=== PATIENT | female | born 1955 | race Caucasian/White ===

== ENCOUNTER → 2017-08-25 10:31 | Outpatient (CLI) | payer MEDICARE, SELFPAY ==
--- NOTE | 2017-08-25 10:36 | RAD_ITS ---
STUDY: X-RAY - RIGHT big toe. CLINICAL: Female, 62 years old. Great toe bruising and pain. TECHNIQUE: 3 view(s) of the right big toe. COMPARISON: None. FINDINGS: There is diffuse demineralization without acute fracture lucency or cortical step-off. The soft tissues appear unremarkable. RAD/Foot min 3 Views IMPRESSION: Diffuse demineralization. Advise correlation with DEXA. No evident acute osseous abnormality. Electronically Signed: Tc Morrissey MD at 11:06 EDT , Service support ,
--- NOTE | 2017-08-25 10:36 | RAD_ITS ---
STUDY: X-RAY - LEFT HUMERUS REASON FOR EXAM: Female, 62 years old. Fell one day ago with shoulder pain. TECHNIQUE: 3 view(s) of the humerus. COMPARISON: None. FINDINGS: There is subtle cortical step-off involving the proximal humeral shaft. There is no glenohumeral subluxation or dislocation. There is no demonstrated soft tissue abnormality. The left lung regions within the field of view appear unremarkable. RAD/Humerus min 2 Views IMPRESSION: Potential fracture of the proximal humeral shaft. Please refer to dedicated left shoulder series for further information. Electronically Signed: Tc Morrissey MD at 11:11 EDT , Service support ,
--- NOTE | 2017-08-25 10:36 | RAD_ITS ---
STUDY: X-RAY - LEFT SHOULDER REASON FOR EXAM: Female, 62 years old. Fell one day ago. Shoulder pain and immobility. TECHNIQUE: 4 view(s) of the shoulder. COMPARISON: None. FINDINGS: There is subtle cortical step-off and cortical angulation involving the proximal left humeral shaft. Fracture fragments appear well opposed. There is mild low riding shoulder. There is no glenohumeral dislocation. The acromioclavicular and coracoclavicular joint spaces appear normal/preserved. Normal visualized pulmonary apex. RAD/Shoulder min 2 Views IMPRESSION: Probable nondisplaced fracture of the proximal left humerus surgical neck. No glenohumeral subluxation or dislocation. Mild low riding humeral head probably represents hemarthrosis. Diffuse demineralization. Consider evaluation with DEXA. Electronically Signed: Tc Morrissey MD at 11:12 EDT , Service support ,
== END ==
PROVIDERS: Family Provider Internal Medicine; PCP Internal Medicine; Visit Provider Nurse Practitioner Gerontology
DX: S99.921A Unspecified injury of right foot, initial encounter (principal); M25.512 Pain in left shoulder; M79.602 Pain in left arm
CPT/HCPCS: 73030; 73060; 73630

== ENCOUNTER 2017-09-24 11:15 | Outpatient (RCR) | payer MEDICARE, SELFPAY ==
--- NOTE | 2017-09-24 12:17 | HP.PTEVAL_ITS ---
Patient's Visit Information GLADYS LAINEZ is a 62 year old F referred to Physical Therapy by Niraj Ghotra with a diagnosis of 2 part non displaced fx of surg neck and greater tuberosity. Date of Evaluation: 09/24/17 Physical Therapist: Pina Raphael - Visit Plan Frequency: 2-3x /Week Duration: 2 Months Plan: ===Pt seems to have some memory issues as she could not remember when she fell nor when her follow up appointment is. ===Called [facility] and they said Dr has PROM only in his notes until retun appt on October 16. 1X/ week for 4 weeks for PROM to gain more ROM and get pt ready for strengthening and AAROM when cleared to do so by MD with modalities for pain control PRN. Once cleared POC will prob change to 2X/ week for strengthening and AAROM/AROM with HEP...... - Subjective Subjective: Pt reports that she broke her shoulder because she fell at her Father in Laws house right before dinner. She went to go let dog in house and the carpet had been rolled up and went to step over it and caught her toe or something (toe has healed up fine) but when she landed she knew she had hurt herself bad. She ate dinner but did not want to take her to the ER so he gave her a valium and woke up the next morning and was in so much pain that she could not do anything. She ended up seeing OIL LABORATORY ANALYST the next morning and had an x -ray and was sent to ortho. Ortho said no surgery. She fell 3-4 weeks ago she thinks but can't remember. The pain is not near as bad a s it used to be and takes tramadol. She is in a sling and has to be in a sling for 3 more weeks. said to do nothing with her arm and keep in the sling. She is not sleeping cause she is on her back. She normally sleeps on her L side. ++Therapist called Dr arauzw and she fell 08-24-2017. Clinical desk said PROM only until she sees MD on the 16 of October - Pain L shoulder pain Pain Intensity (Out of 10): 0 - Objective Sits her in the clinic with a sling on the L shoulder. - Goals Goal 1:: I HEP Goal Time Frame: 4-6 Weeks Goal 2:: Gain L shoulder AROM to 120 degrees elevation to be able to complete functional ADLs and IR to L4 to help with dressing etc - Rehabilitation Potential Rehabilitation Potential: Good - Anticipated Interventions Patient/Client Instruction: Educate patient on: Condition, Plan of Care For the Purpose of:: To decrease pain, To decrease swelling/inflammation, To increase ROM, To improve nutrient delivery to tissue, To improve muscle performance and motor function, To improve ability to perform ADL's, To increase tolerance to activity/condition/position, To improve performance and independence with ADL's, To improve health of tissue, To increase flexibility/ ROM Therapeutic Exercise to Include: Strength training, Postural training, Passive ROM, Active ROM, Scapular Strength/Stabilization For the Purpose of:: To decrease pain, To decrease swelling/inflammation, To increase ROM, To improve nutrient delivery to tissue, To improve muscle performance and motor function, To improve ability to perform ADL's, To increase tolerance to activity/condition/position, To improve performance and independence with ADL's, To improve ability of physical actions for home/ community/work/leisure Manual Therapy Techniques to Include: Passive ROM For the Purpose of:: To increase ROM IF ES: Yes Cryotherapy (ice pack, ice massage): Yes Thermo therapy (hot pack): Yes Ultrasound (thermal/non thermal): Yes For the Purpose of:: To decrease pain, To decrease swelling/inflammation, To improve nutrient delivery to tissue Thank you for the opportunity to evaluate your patient. For Medicare and Medicare HMO plans, please review the plan of care and approve it. It will need to be FAXED BACK to us at [phone] for Medicare purposes. Please let me know if there are questions or concerns regarding this plan of care. Physician Signature: Date:
--- NOTE | 2017-09-24 12:23 | HP.PTEVAL ---
Patient's Visit Information GLADYS LAINEZ is a 62 year old F referred to Physical Therapy by Niraj Ghotra with a diagnosis of 2 part non displaced fx of surg neck and greater tuberosity. Date of Evaluation: 09/24/17 Physical Therapist: Pina Raphael - Visit Plan Frequency: 2-3x /Week Duration: 2 Months Plan: ===Pt seems to have some memory issues as she could not remember when she fell nor when her follow up appointment is. ===Called [facility] and they said Dr has PROM only in his notes until retun appt on October 16. 1X/ week for 4 weeks for PROM to gain more ROM and get pt ready for strengthening and AAROM when cleared to do so by MD with modalities for pain control PRN. Once cleared POC will prob change to 2X/ week for strengthening and AAROM/AROM with HEP...... - Subjective Subjective: Pt reports that she broke her shoulder because she fell at her Father in Laws house right before dinner. She went to go let dog in house and the carpet had been rolled up and went to step over it and caught her toe or something (toe has healed up fine) but when she landed she knew she had hurt herself bad. She ate dinner but did not want to take her to the ER so he gave her a valium and woke up the next morning and was in so much pain that she could not do anything. She ended up seeing SIGNALS INTELLIGENCE ANALYST the next morning and had an x-ray and was sent to ortho. Ortho said no surgery. She fell 3-4 weeks ago she thinks but can't remember. The pain is not near as bad a s it used to be and takes tramadol. She is in a sling and has to be in a sling for 3 more weeks. said to do nothing with her arm and keep in the sling. She is not sleeping cause she is on her back. She normally sleeps on her L side. ++Therapist called Dr arauzw and she fell 08-24-2017. Clinical desk said PROM only until she sees MD on the 16 of October - Pain L shoulder pain Pain Intensity (Out of 10): 0 - Objective Sits her in the clinic with a sling on the L shoulder. - Goals Goal 1:: I HEP Goal Time Frame: 4-6 Weeks Goal 2:: Gain L shoulder AROM to 120 degrees elevation to be able to complete functional ADLs and IR to L4 to help with dressing etc Goal Time Frame: 4-6 Weeks Goal 3:: Increase L shoulder strength to 4/5 to be able to help carry out ADL's Goal Time Frame: 4-6 Weeks - Rehabilitation Potential Rehabilitation Potential: Good - Anticipated Interventions Patient/Client Instruction: Educate patient on: Condition, Plan of Care For the Purpose of:: To decrease pain, To decrease swelling/inflammation, To increase ROM, To improve nutrient delivery to tissue, To improve muscle performance and motor function, To improve ability to perform ADL's, To increase tolerance to activity/condition/position, To improve performance and independence with ADL's, To improve health of tissue, To increase flexibility/ROM Therapeutic Exercise to Include: Strength training, Postural training, Passive ROM, Active ROM, Scapular Strength/Stabilization For the Purpose of:: To decrease pain, To decrease swelling/inflammation, To increase ROM, To improve nutrient delivery to tissue, To improve muscle performance and motor function, To improve ability to perform ADL's, To increase tolerance to activity/condition/position, To improve performance and independence with ADL's, To improve ability of physical actions for home/community/work/leisure Manual Therapy Techniques to Include: Passive ROM For the Purpose of:: To increase ROM IF ES: Yes Cryotherapy (ice pack, ice massage): Yes Thermo therapy (hot pack): Yes Ultrasound (thermal/non thermal): Yes For the Purpose of:: To decrease pain, To decrease swelling/inflammation, To improve nutrient delivery to tissue Thank you for the opportunity to evaluate your patient. For Medicare and Medicare HMO plans, please review the plan of care and approve it. It will need to be FAXED BACK to us at [phone] for Medicare purposes. Please let me know if there are questions or concerns regarding this plan of care. Physician Signature: Date:
--- NOTE | 2018-01-14 17:26 | HP.PTDCNRP_ITS ---
HP - Discharge Summary (1) - Patient Information GLADYS LAINEZ was seen in my office for initial evaluation on 09/24/17. The following Plan of Care was established for this patient: Initial Frequency: 2-3x /Week Initial Duration: 2 Months - Anticipated Interventions Patient/Client Instruction: Educate patient on: Condition, Plan of Care For the Purpose of:: To decrease pain, To decrease swelling/inflammation, To increase ROM, To improve nutrient delivery to tissue, To improve muscle performance and motor function, To improve ability to perform ADL's, To increase tolerance to activity/condition/position, To improve performance and independence with ADL's, To improve health of tissue, To increase flexibility/ ROM Therapeutic Exercise to Include: Strength training, Postural training, Passive ROM, Active ROM, Scapular Strength/Stabilization For the Purpose of:: To decrease pain, To decrease swelling/inflammation, To increase ROM, To improve nutrient delivery to tissue, To improve muscle performance and motor function, To improve ability to perform ADL's, To increase tolerance to activity/condition/position, To improve performance and independence with ADL's, To improve ability of physical actions for home/ community/work/leisure Manual Therapy Techniques to Include: Passive ROM For the Purpose of:: To increase ROM IF ES: Yes Cryotherapy (ice pack, ice massage): Yes Thermo therapy (hot pack): Yes Ultrasound (thermal/non thermal): Yes For the Purpose of:: To decrease pain, To decrease swelling/inflammation, To improve nutrient delivery to tissue This patient was last seen in our office 09/24/17. Pertinent comments regarding their Physical therapy will appear below: Pt cancelled her appointments and has not rescheduled and will be discharged at this time At this point I will be discontinuing this patient from physical therapy. I would be happy to see this patient again in the future if found appropriate by the physician. Thank you! Pina Raphael
== END 2017-09-24 19:00 | disposition home or self-care (01) ==
LOC: PT 11:15
PROVIDERS: Family Provider Internal Medicine; PCP Internal Medicine; Visit Provider Physician Assistant
DX: S42.225D 2-part nondisplaced fracture of surgical neck of left humerus, subsequent encounter for fracture with routine healing (principal); S42.255D Nondisplaced fracture of greater tuberosity of left humerus, subsequent encounter for fracture with routine healing
CPT/HCPCS: 97161

== ENCOUNTER 2017-10-08 09:20 | Inpatient (IN) | payer MEDICARE, SELFPAY ==
--- NOTE | 2017-10-08 11:30 | CT_ITS ---
STUDY: CT ABDOMEN AND PELVIS WITH CONTRAST REASON FOR EXAM: Female, 62 years old. Right-sided abdominal pain and diarrhea RADIATION DOSAGE (If Supplied By Facility): CTDIvol = ( 11.88 ) mGy, DLP = ( 808.67 ) mGycm TECHNIQUE: Transaxial images were obtained from the dome of the diaphragm to the symphysis pubis without oral contrast. 100ML ml of Isovue 300 contrast was administered. Sagittal and coronal images were reconstructed. Individualized dose optimization techniques were used for this CT. COMPARISON: None. FINDINGS: The lung bases are clear. There is a 1.4 cm cyst near the dome of the right lobe of the liver. There are no dilated intrahepatic biliary radicles. The gallbladder is normal. The spleen, pancreas and both adrenals are normal. The kidneys are normal with no masses, calculi or hydronephrosis. The stomach is normal. There is no bowel distention, acute appendicitis or diverticulitis. No abnormally constricting large bowel lesions. The abdominal wall is intact. There is no ascites, free intraperitoneal air or any evidence of epiploic appendagitis. The vascular structures in the retroperitoneum are normal The bones and joints seen are normal with no osteolytic or osteoblastic changes There is no retrocrural, retroperitoneal or mesenteric adenopathy. There is no mesenteric mistiness The urinary bladder is normal.. Tubal ligation clips are seen in either side of the uterus. No abnormal adnexal masses. There is no inguinal or pelvic adenopathy and there is no inguinal hernia. CT/Abdomen/Pelvis WITH Contrast IMPRESSION: No acute findings in the abdomen or pelvis. Specifically there is no acute appendicitis or diverticulitis. There is sigmoid diverticulosis Electronically Signed: Chapo Rodriguez, at 7:14 EDT Tel , Service support ,
--- NOTE | 2017-10-08 11:52 | DT_ITS ---
This patient was seen during an EMR downtime October 06, 2017 - October 13, 2017. This patient may have a combination of paper and electronic documentation or all paper documentation. All documentation is viewable within the e-chart portion of [facility] for each patient visit.
[2017-10-11 09:08] LABS: Hematocrit 37.3 % (37-47); Hemoglobin 11.9 g/dl (12.0-15.0); Mean Corp Hgb Conc 31.9 g/gl (32-36); Mean Corpuscular Hgb 29.5 pg (27.0-32.0); Mean Corpuscular Volume 92.6 fL (81-99); Mean Platelet Vol. 9.5 fl (6.2-12.0); POSITIVE COUNT NO; POSITIVE DIFFERENTIAL NO; POSITIVE MORPHOLOGY NO; Platelet Count 245 K/mm3 (150-450); RBC Distribution Width CV 13.7 % (11.6-14.6); RBC Distribution Width SD 46.3 fl (35.1-43.9); Red Blood Count 4.03 M/mm3 (4.2-5.4); White Blood Count 15.6 K/mm3 (4.4-11.0)
[2017-10-11 09:09] LABS: Absolute Lymphocyte Count 1.29 X10^3/ul (0.83-4.51); Absolute Neutrophil Count 13.1 X10^3/uL (2.0-7.7); Basophil# 0.02 X10^3/uL; Basophil% 0.1 % (0-1); Lymphocyte # 1.29 X10^3/ul (4.0); Lymphocyte % 8.3 % (19-41); Monocyte% 7.7 % (0-10); Neutrophil # 13.06 X10^3/uL (2.7-7.7); Neutrophil % 83.8 % (47-70)
[2017-10-11 09:55] LABS: Anion Gap 9 (5-15); BUN 19 mg/dL (7-18); BUN/Creat Ratio 22.9 RATIO (10-20); Calcium,Total 8.8 mg/dL (8.5-10.1); Chloride 107 mmol/L (98-107); Creatinine, Serum 0.83 mg/dL (0.55-1.02); EST Glomerular Filtration Rate 74 mL/min (>60); Est Glom Filt Rate - Afr Amer 90 mL/min (>60); Estimated Creatinine Clearance 53.03 ml/min; Glucose 100 mg/dL (74-106); Potassium 3.4 mmol/L (3.5-5.1); Sodium Level 141 mmol/L (136-145)
[2017-10-11 12:52] LABS: Anion Gap 7 (5-15); BUN 10 mg/dL (7-18); BUN/Creat Ratio 14.1 RATIO (10-20); Calcium,Total 7.6 mg/dL (8.5-10.1); Chloride 112 mmol/L (98-107); Cholesterol 56 mg/dL (200); Creatinine, Serum 0.71 mg/dL (0.55-1.02); EST Glomerular Filtration Rate 89 mL/min (>60); Est Glom Filt Rate - Afr Amer 108 mL/min (>60); Estimated Creatinine Clearance 61.99 ml/min; Glucose 93 mg/dL (74-106); High Density Lipoprotein 27 mg/dL; Potassium 3.9 mmol/L (3.5-5.1); Sodium Level 144 mmol/L (136-145); Triglycerides 83 mg/dL; Very Low Density Lipoprotein 17 mg/dL (5-40)
[2017-10-11 15:30] LABS: Basophil% 0.2 % (0-1); Eosinophils% 0.1 % (0-5); Hematocrit 32.9 % (37-47); Hemoglobin 10.3 g/dl (12.0-15.0); Lymphocyte % 11.9 % (19-41); Mean Corp Hgb Conc 31.3 g/gl (32-36); Mean Corpuscular Hgb 30.2 pg (27.0-32.0); Mean Corpuscular Volume 96.5 fL (81-99); Mean Platelet Vol. 9.7 fl (6.2-12.0); Monocyte% 8.9 % (0-10); Neutrophil # 11.82 X10^3/uL (2.7-7.7); Neutrophil % 78.6 % (47-70); POSITIVE COUNT NO; POSITIVE DIFFERENTIAL NO; POSITIVE MORPHOLOGY NO; Platelet Count 265 K/mm3 (150-450); RBC Distribution Width CV 13.7 % (11.6-14.6); RBC Distribution Width SD 46.5 fl (35.1-43.9); Red Blood Count 3.41 M/mm3 (4.2-5.4)
[2017-10-11 15:31] LABS: Absolute Lymphocyte Count 1.78 X10^3/ul (0.83-4.51); Absolute Neutrophil Count 11.8 X10^3/uL (2.0-7.7); Eosinophil# 0.02 X10^3/uL; Lymphocyte # 1.78 X10^3/ul (4.0); Monocyte# 1.33 X10^3/uL
[2017-10-11 15:32] LABS: Basophil# 0.03 X10^3/uL
[2017-10-12 07:35] LABS: Hematocrit 37.7 % (37-47); Hemoglobin 11.7 g/dl (12.0-15.0); Mean Corpuscular Hgb 28.6 pg (27.0-32.0); Mean Corpuscular Volume 92.2 fL (81-99); Mean Platelet Vol. 8.8 fl (6.2-12.0); Platelet Count 320 K/mm3 (150-450); RBC Distribution Width CV 13.6 % (11.6-14.6); RBC Distribution Width SD 45.6 fl (35.1-43.9); Red Blood Count 4.09 M/mm3 (4.2-5.4); Scan Indicated on CBC? Y/N NO; White Blood Count 5.9 K/mm3 (4.4-11.0)
[2017-10-12 12:48] LABS: Anion Gap 7 (5-15); BUN 6 mg/dL (7-18); BUN/Creat Ratio 7.2 RATIO (10-20); Calcium,Total 8.6 mg/dL (8.5-10.1); Chloride 109 mmol/L (98-107); Creatinine, Serum 0.83 mg/dL (0.55-1.02); EST Glomerular Filtration Rate 74 mL/min (>60); Est Glom Filt Rate - Afr Amer 90 mL/min (>60); Estimated Creatinine Clearance 53.03 ml/min; Glucose 91 mg/dL (74-106); Potassium 3.9 mmol/L (3.5-5.1); Sodium Level 143 mmol/L (136-145)
[2017-10-13 11:39] LABS: Hemoglobin 10.8 g/dl (12.0-15.0); Mean Corp Hgb Conc 30.9 g/gl (32-36); Mean Corpuscular Hgb 29.7 pg (27.0-32.0); Mean Corpuscular Volume 96.2 fL (81-99); Mean Platelet Vol. 9.3 fl (6.2-12.0); Platelet Count 284 K/mm3 (150-450); RBC Distribution Width CV 13.7 % (11.6-14.6); RBC Distribution Width SD 45.7 fl (35.1-43.9); Red Blood Count 3.64 M/mm3 (4.2-5.4); Scan Indicated on CBC? Y/N NO; White Blood Count 9.7 K/mm3 (4.4-11.0)
[2017-10-13 22:14] LABS: BUN 3 mg/dL (7-18); BUN/Creat Ratio 4.8 RATIO (10-20); Calcium,Total 8.3 mg/dL (8.5-10.1); Creatinine, Serum 0.63 mg/dL (0.55-1.02); EST Glomerular Filtration Rate 102 mL/min (>60); Est Glom Filt Rate - Afr Amer 124 mL/min (>60); Estimated Creatinine Clearance 69.87 ml/min; Glucose 81 mg/dL (74-106); Sodium Level 144 mmol/L (136-145)
[2017-10-13 22:15] LABS: Anion Gap 7 (5-15); Chloride 112 mmol/L (98-107); Potassium 4.4 mmol/L (3.5-5.1)
--- NOTE | 2017-12-26 08:39 | ED.VISSUMM ---
- ER Visit Summary Date of Service: 12/26/17 Chief Complaint: Abdominal pain with nausea and vomiting that started date of visit October 08, 2017 History of Present Illness: The patient is a 62 F who presents with abdominal pain with nausea and vomiting. The nausea and vomiting started date of visit. The abdominal pain apparently is been present for weeks. She also reports diarrhea for 3 weeks. The pain is been intermittent and described as aching. At time of presentation the pain was mild it is been mild to moderate at its worst. She denied hematemesis or coffee-ground emesis. She reports the diarrhea is loose watery with mucus. She also reports documented fever greater than 102 with chills. She does report back pain and generalized weakness as well. There is no history of inflammatory bowel disorder. She has no history of irritable bowel disorder. She denies dysuria, frequency, urgency or hematuria. She does report decreased urine output. She is status post bilateral tubal ligation many years ago and cerebral aneurysm repair. Physical Examination: Vital signs noted. Heart rate is 101. Head is atraumatic normocephalic. Pupils are equal round reactive. Extraocular muscles are intact. TMs are pearly white with landmarks noted. Nares patent with no drainage. Posterior pharynx without erythema or exudate. Uvula is midline. Mucosa is dry. There is no dysphonia or dysphasia. Trachea is midline. There is no stridor with auscultation of the neck. Heart is regular without murmur, gallop or rub. S1 and S2 are normal. Lungs are clear to auscultation with good movement of air bilaterally. Abdomen is soft with tenderness and guarding. There is no palpable pulsatile mass. There is no abdominal bruit. There is no rebound tenderness. Negative Rovsing sign or Warner sign. Back is nontender. There is no asymmetry, swelling, discoloration, leg vein distention, palpable cords or tenderness along the distribution of the deep venous system. Patient is alert and oriented ?3. Motor is 5 over 5. Sensory is intact. DTRs are symmetric with no clonus or Babinski sign. Cranial 2 through 12 are intact. Cerebellar testing is normal. Test Results: White count is 15.6 thousand with 84 segs no bands. Electro panels unremarkable. CT of the abdomen and pelvis was obtained which reveals diffuse colitis with a pelvic abscess. Emergency Department Course and Treatment: IV was established and patient was given IV fluids. She was medicated with Zofran and morphine. Because of the guarding and elevated white count she received 4.5 g of Zosyn since she does not report penicillin allergy. CT of the abdomen with contrast was obtained to evaluate for diverticulitis versus appendicitis versus inflammatory bowel disorder versus infectious colitis. Treatment Plan: Patient was admitted to the hospital with surgical consultation Disposition: Admit Impression: 1. Diffuse colitis 2. Pelvic abscess 3. Sepsis This note was generated with [employer] dictation software. It may contain incorrect words, spelling, and punctuation that were not noted in review of the chart prior to signing ED Disposition - Plan for ED Patient: Disposition: Acute Care Hospital [facility]
== END 2017-10-12 16:36 | disposition home or self-care (01) | DRG 373 ==
LOC: ED 15:22 → MS3 17:12
PROVIDERS: Admitting Provider Internal Medicine; Emergency Provider Emergency Medicine; Family Provider Internal Medicine; PCP Internal Medicine; Visit Provider Internal Medicine
DX: A04.72 Enterocolitis due to Clostridium difficile, not specified as recurrent (principal); K57.30 Diverticulosis of large intestine without perforation or abscess without bleeding; R19.00 Intra-abdominal and pelvic swelling, mass and lump, unspecified site; F03.90 Unspecified dementia, unspecified severity, without behavioral disturbance, psychotic disturbance, mood disturbance, and anxiety; G89.4 Chronic pain syndrome; G40.909 Epilepsy, unspecified, not intractable, without status epilepticus; F17.200 Nicotine dependence, unspecified, uncomplicated; M32.9 Systemic lupus erythematosus, unspecified; J44.9 Chronic obstructive pulmonary disease, unspecified; K21.9 Gastro-esophageal reflux disease without esophagitis; I10 Essential (primary) hypertension; E78.00 Pure hypercholesterolemia, unspecified; Z86.73 Personal history of transient ischemic attack (TIA), and cerebral infarction without residual deficits; Z87.11 Personal history of peptic ulcer disease
CPT/HCPCS: 36415; 74177; 80048; 80061; 82274; 83630; 84443; 85025; 85027; 85610; 87177; 87209; 87493; 87506; 94640; 97110; 97162; 97165; 97530; 97802; J7030; J7050; Q9967; A4216; G8978; G8979; G8987; G8988

== ENCOUNTER → 2017-11-17 12:54 | Outpatient (CLI) | payer MEDICARE, SELFPAY ==
--- NOTE | 2017-11-17 12:55 | CT_ITS ---
STUDY: CT ABDOMEN AND PELVIS WITH CONTRAST REASON FOR EXAM: Female, 62 years old. Abdomen pelvis abscess RADIATION DOSAGE (If Supplied By Facility): CTDIvol = ( 10.24 ) mGy, DLP = ( 456.36 ) mGycm TECHNIQUE: Transaxial images were obtained from the dome of the diaphragm to the symphysis pubis without oral contrast. 100 ml of Isovue 300 contrast was administered. Sagittal and coronal images were reconstructed. Individualized dose optimization techniques were used for this CT. COMPARISON: October 08, 2017 CT scan abdomen and pelvis FINDINGS: The visualized lung bases are unremarkable. The visualized portions of the heart are within normal limits. The well-circumscribed cystic structure within the liver that measures 1.1 x 1.1 cm. This is relatively stable since prior study. Normal gallbladder and extrahepatic biliary system. Normal spleen. There is trace distention of the pancreatic duct. This is similar to prior study. Normal bilateral adrenal glands. There is a well-circumscribed cystic mass in the right kidney measuring 1.3 x 1.2 cm. Hounsfield units are in the range of complex fluid. This is new since the prior study. Is a stable low pole right renal cyst. There is a similar appearance of the left kidney with peripelvic cyst and mild left pelviectasis with Hounsfield units in the range of simple fluid. There is a minimally distended appearance of the right ureter. Normal visualized stomach. There is a thick-walled appearance of the first part of the duodenum which is abnormal in appearance similar to prior study measuring up to 1.2 cm. There is mild distention of the small bowel distal to the mesenteric artery. There is an air-fluid level within the ascending colon. There is moderate stool within the visualized colon. There are numerous diverticula present. In the right lower quadrant where there was inflammation near the right ovary and diverticulitis there is lesser strandy inflammation when compared to prior study. On prior study there was a ill-defined fluid collection with gas bubbles within the right adnexa and/or ovary. This was seen on prior study image #48 suggestive of a right periadnexal abscess and/or fistula into the right ovary or ovarian cyst. Now the right ovary is demonstrating a well-circumscribed enhancing thick walled mass that measures 2.9 x 1.9 cm. This is behind a tubal ligation clip. See image #73 of the axial views. There is still a close proximity of the right side of the sigmoid colon with wall thickening adjacent to the right ovary. There is moderate stool in the rectum. The appendix is visualized and appears normal. The aorta is partially calcified. Normal inferior vena cava. There are multiple small subcentimeter mesenteric lymph nodes which are slightly enlarged when compared to the prior study. There are small para-aortic lymph nodes. Normal urinary bladder. The uterus is of normal size. The left ovary appears of normal size. Normal abdominal wall. There are diffuse degenerative changes of the visualized lumbar spine. CT/Abdomen/Pelvis WITH Contrast IMPRESSION: On prior study findings are highly suspicious for a pattern of diverticulitis and possible fistula into a pre-existing adnexal cyst and/or abscess within the right adnexa. Now the inflammation of the diverticula is less and there is lesser surrounding inflammation however there is a thicker appearing walled off cystic fluid collection with enhancement that measures 2.9 x 1.9 cm. In this follow-up setting findings are suspicious for a right sided paraovarian or adnexal abscess. Since the prior study there is been an atypical interval development of a cystic structure in the periphery of the right kidney. The Hounsfield units are in the range of complex or enhancement which could potentially represent a hemorrhagic right renal cyst versus a focus of abscess/ infection. No significant surrounding inflammation. There is a stable lower pole right renal cyst. Ongoing diverticulosis possible mild remaining diverticulitis and/or colitis. Stable hepatic cyst. There is a abnormal thick-walled appearance of the duodenum suspicious for duodenitis and/or underlying atypia for which a follow-up is warranted. N.B. : Dr. Santiago's office, Covering Physician, confirmed on 11/20/2017 22:17:31 (ET) that the referring physician received the results and did not require a verbal consultation. Electronically Signed: Sirena Nuñez MD at 22:48 EDT Tel , Service support ,
--- NOTE | 2017-11-17 22:50 | ED.RN ---
[facility] called with critical results and wanted to speak with doctor at this time. Advised them that patient is outpatient at this time and no doctor to speak too. Advised if patient has critical results. Willing to call and speak with patient at this time about results. Advises there is no need at this time. They will call back if there is further issues
== END ==
PROVIDERS: Family Provider Internal Medicine; PCP Internal Medicine; Visit Provider Surgery
DX: R93.8 Abnormal findings on diagnostic imaging of other specified body structures (principal)
CPT/HCPCS: 74177; Q9967

== ENCOUNTER → 2017-12-04 15:00 | Outpatient (CLI) | payer MEDICARE, SELFPAY ==
--- NOTE | 2017-12-04 15:01 | US_ITS ---
STUDY: ULTRASOUND TRANSVAGINAL CLINICAL: Female, 62 years old. Mass TECHNIQUE: Transvaginal COMPARISON: CT scan 11/17/2017. FINDINGS: Normal uterine size measuring 4.7 x 2.8 x 2.1 cm in maximal craniocaudal dimension. There are no myometrial masses. Normal endometrial thickness measuring 1.5 mm. There are no endometrial masses, and there is no fluid in the endometrial cavity. Normal uterine cervix. Normal right ovary, measuring 3.2 x 3.1 x 2.5 cm. There is a 2.1 cm cyst with irregular lopez and internal echoes. This is not clearly a simple cyst, and suggest repeat exam in one or 2 months, or contrast MRI. Left ovary is not seen. There is no free fluid in the pelvis. Polycystic ovary disease: No. US/Transvaginal Non- IMPRESSION: 2.1 cm complex cystic mass of the right ovary. See comments above. Electronically Signed: Vishnu Wolff MD at 23:41 EDT , Service support ,
== END ==
PROVIDERS: Family Provider Internal Medicine; PCP Internal Medicine; Visit Provider Internal Medicine
DX: N83.291 Other ovarian cyst, right side (principal)
CPT/HCPCS: 76830

== ENCOUNTER 2018-01-20 09:14 | Day surgery (SDC) | payer MEDICARE, SELFPAY ==
[2018-01-20] VITALS (7 sets, daily range): BP systolic 152–177; BP diastolic 66–92; PULSE 52–66; RESP 14–18; TEMP 36.2–36.4; O2SAT 96–100; BMI 23.2
--- NOTE | 2018-01-20 10:30 | COLBX_PTH ---
PATIENT: GLADYS LAINEZ LOC: EN U#:[id number] AGE/SX: 62/F ROOM: RE01/20/[address]: Dr. Brady Santiago MD : 1955 BED: DIS: 01/20/2018 SPEC #: [id number] RECD: 01/20/18 12:06 STATUS: KIANA LENNY #: [id number] GARY: 01/20/18 10:[address]: Brady Santiago DEPT: SURGICAL PATHOLOGY RECD BY: Bryan Montgomery ENTERED: 01/20/18 13:04 SP TYPE: COLON BX OT DR: Dr. Kellen eJan DO Tissues: Sigmoid colon biopsy Procedures: Surgery Specimen Level IV HEADER OPERATION: Colonoscopy (MAC) PRE-OP DIAGNOSIS: History of colon polyps TISSUE SUBMITTED: Sigmoid polyps biopsy MICROSCOPIC DIAGNOSIS Sigmoid colon polyps, biopsy: Fragments of hyperplastic polyp. AM:trinh 01/21/18 MICROSCOPIC DESCRIPTION Slides are reviewed. GROSS DESCRIPTION Received in fixative is one container labeled with the patient's name and designated sigmoid polyp biopsy. The specimen consists of two irregular fragments of light falcon soft tissue that in aggregate measure 0.5 x 0.3 x 0.1 cm. The specimen is totally submitted in one cassette. / SJ:rg 01/20/18 TC:5 CPT: 51575
--- NOTE | 2018-01-20 12:24 | SUR.PHASEII ---
Dr Santiago requested this RN to contact radiology to determine when Air Contrast Ba Enema could be performed related to biopsies having been taken today. Crystal in radiology states that Radiologist states Ba Enema should be done on/after 01/22. pt's dgtr informed. Orders entered.
--- NOTE | 2018-01-20 14:50 | OP.ENDO_ITS ---
Patient Name: Sandra Garcia Procedure Date: 01/20/2018 10:51 AM Date of : 1955 Age: 62 Procedure: Colonoscopy Indications: Suspected chronic ulcerative pancolitis, Diverticulitis Patient Profile: Last Colonoscopy: August 2016. Providers: Brady Santiago MD Referring MD: Brady Santiago MD Medicines: See the Anesthesia note for documentation of the administered medications Complications: No immediate complications. Procedure: Pre-Anesthesia Assessment: - Prior to the procedure, a History and Physical was performed, and patient medications and allergies were reviewed. The patient's tolerance of previous anesthesia was also reviewed. The risks and benefits of the procedure and the sedation options and risks were discussed with the patient. All questions were answered, and informed consent was obtained. Prior Anticoagulants: The patient has taken aspirin, last dose was 1 day prior to procedure. ASA Grade Assessment: III - A patient with severe systemic disease. After reviewing the risks and benefits, the patient was deemed in satisfactory condition to undergo the procedure. After I obtained informed consent, the scope was passed under direct vision. Throughout the procedure, the patient's blood pressure, pulse, and oxygen saturations were monitored continuously. The colonoscope was introduced through the anus and advanced to the sigmoid colon. The colonoscopy was technically difficult and complex due to bowel stenosis. Successful completion of the procedure was aided by changing the patient to a supine position, using manual pressure, withdrawing and reinserting the scope, withdrawing the scope and replacing with the adult endoscope, straightening and shortening the scope to obtain bowel loop reduction and using scope torsion. The patient tolerated the procedure well. The quality of the bowel preparation was good. Scope In: 11:05:27 AM Scope Out: 11:33:29 AM Total Procedure Duration Time 0 hours 28 minutes 2 seconds Findings: The digital rectal exam findings include anal stricture and internal hemorrhoids that prolapse with straining, but spontaneously regress to the resting position (Grade II). Multiple medium-mouthed diverticula were found in the sigmoid colon. A tight curvature with narrowing prevented advancement of colonoscope. The scope was withdrawn and replaced with the adult endoscope because of difficulty passing the scope. A few sessile polyps were found in the sigmoid colon. The polyps were 3 to 7 mm in size. These polyps were removed with a cold biopsy forceps. Resection and retrieval were complete. Impression: - Anal stricture and internal hemorrhoids that prolapse with straining, but spontaneously regress to the resting position (Grade II) found on digital rectal exam. - Severe diverticulosis in the sigmoid colon. A tight curvature with narrowing prevented advancement of colonoscope. - A few 3 to 7 mm polyps in the sigmoid colon, removed with a cold biopsy forceps. Resected and retrieved. Recommendation: - Perform an air contrast barium enema in 1 day. - Discharge patient to home. - Clear liquid diet. - Continue present medications. - Return to my office in 1 week. - Repeat colonoscopy (date not yet determined) because the examination was incomplete. Procedure Code(s): --- Professional --- 79612, 52, Colonoscopy, flexible; with biopsy, single or multiple Diagnosis Code(s): --- Professional --- K62.4, Stenosis of anus and rectum K64.1, Second degree hemorrhoids D12.5, Benign neoplasm of sigmoid colon K57.32, Diverticulitis of large intestine without perforation or abscess without bleeding CPT copyright 2017 [employer]. All rights reserved. The codes documented in this report are preliminary and upon traffic chief review may be revised to meet current compliance requirements. MD Brady Molina MD 01/20/2018 11:45:11 AM This report has been signed electronically. Number of Addenda: 0 Note Initiated On: 01/20/2018 10:51 AM
== END 2018-01-20 12:48 | disposition home or self-care (01) ==
LOC: EN 09:14 → AC 09:15
PROVIDERS: Family Provider Internal Medicine; PCP Internal Medicine; Visit Provider Surgery
PROC: 0DJD8ZZ Inspection of Lower Intestinal Tract, Via Natural or Artificial Opening Endoscopic (ICD-10-PCS; CPT 45378; principal; 2018-01-20 10:25)
DX: D12.5 Benign neoplasm of sigmoid colon (principal); K62.4 Stenosis of anus and rectum; K64.1 Second degree hemorrhoids; K57.32 Diverticulitis of large intestine without perforation or abscess without bleeding; K57.30 Diverticulosis of large intestine without perforation or abscess without bleeding; K58.0 Irritable bowel syndrome with diarrhea; K21.9 Gastro-esophageal reflux disease without esophagitis; E11.9 Type 2 diabetes mellitus without complications; M81.0 Age-related osteoporosis without current pathological fracture; M32.9 Systemic lupus erythematosus, unspecified; J44.9 Chronic obstructive pulmonary disease, unspecified; G40.909 Epilepsy, unspecified, not intractable, without status epilepticus; F32.9 Major depressive disorder, single episode, unspecified; F41.9 Anxiety disorder, unspecified; E78.00 Pure hypercholesterolemia, unspecified; F17.200 Nicotine dependence, unspecified, uncomplicated; Z86.010 Personal history of colon polyps; Z86.73 Personal history of transient ischemic attack (TIA), and cerebral infarction without residual deficits; Z79.82 Long term (current) use of aspirin; Z79.899 Other long term (current) drug therapy
CPT/HCPCS: 45380; 88305; J7120; J2405

== ENCOUNTER → 2018-01-26 08:48 | Outpatient (CLI) | payer MEDICARE, SELFPAY ==
--- NOTE | 2018-01-26 08:55 | RAD_ITS ---
STUDY: BARIUM ENEMA. REASON FOR EXAM: Female, 62 years old. Incomplete colonoscopy. FLUOROSCOPY TIME (if supplied): (0:30) minutes/seconds. 14 images were obtained. TECHNIQUE: A installation helper film was obtained. Following this, barium was introduced retrograde through the colon. Entire colon was opacified. COMPARISON: None. FINDINGS: On the installation helper film, the gas pattern is unremarkable. There is evidence of prior bilateral tubal ligation. Contrast was introduced retrograde through the colon. The entire colon was opacified. Is evidence of diffuse diverticulosis of the sigmoid colon without radiographic evidence of diverticulitis at this time. There is no evidence of a antegrade or retrograde obstruction to the flow of contrast. No mass lesion is seen. The appendix is opacified. RAD/Barium Enema w/Air Contrast IMPRESSION: Diffuse sigmoid diverticulosis with no radiographic evidence of diverticulitis at this time. There is no evidence of obstruction to the flow of contrast. Electronically Signed: Steve Martinez MD at 8:09 EDT Tel [phone], Service support ,
== END ==
PROVIDERS: Family Provider Internal Medicine; PCP Internal Medicine; Visit Provider Surgery
DX: K57.30 Diverticulosis of large intestine without perforation or abscess without bleeding (principal)
CPT/HCPCS: 74280

== ENCOUNTER 2018-02-19 17:08 | Inpatient (IN) | payer MEDICARE, SELFPAY ==
--- NOTE | 2018-02-18 17:32 | PCM.HP.STD ---
Problem List (1) Ovarian cyst Status: Acute History of Present Illness Date of Admission: 02/19/18 Chief Complaint: Ovarian cyst for surgical removal The patient is a 62 year old F. History of strokes, seizures, emphysema, hypertension and diabetes. Recent hospitalization of diverticulitis with notation of ovarian cyst with imaging studies. Continued occurrence of the ovarian cyst felt to coincide with diverticulitis. Patient is a smoker. Patient with prior aneurysm repair and stroke. Patient with early dementia. present at all conversations and main caregiver. She is otherwise independent. Past Medical History Past Medical History (Chronic Problems): Chronic Problems (Last Updated 12/26/17 @ 15:16 by Ginna Phillips) Type II diabetes mellitus (Chronic) Fibromyalgia (Chronic) Tobacco dependence syndrome (Chronic) Osteoporosis (Chronic) Lupus erythematosus (Chronic) COPD (chronic obstructive pulmonary disease) (Chronic) History of cerebral aneurysm repair (Chronic) Status post clipping Medical History: Medical History (Last Updated 12/26/17 @ 15:16 by Ginna Phillips) Diverticulosis (Acute) K57.90 Acute colitis (Acute) K52.9 Type II diabetes mellitus (Chronic) E11.9 Fibromyalgia (Chronic) Tobacco dependence syndrome (Chronic) F17.200 Osteoporosis (Chronic) M81.0 Lupus erythematosus (Chronic) L93.0 COPD (chronic obstructive pulmonary disease) (Chronic) J44.9 Acute ischemic stroke (Suspected) I63.9 Diverticulitis K57.92 IBS (irritable bowel syndrome) K58.9 Allergies celecoxib [From Celebrex] Allergy (Verified 01/29/18 09:22) Swelling fluoxetine Allergy (Verified 01/29/18 09:22) Unknown hydrocodone Allergy (Verified 01/29/18 09:22) Unknown pneumococcal 23-valent polysacchari [From Pneumovax 23] Allergy (Verified 01/29/18 09:22) Unknown pneumococcal vaccine [Pneumococcal Vaccine] Allergy (Verified 01/29/18 09:22) Rash ranitidine Allergy (Verified 01/29/18 09:22) Unknown rofecoxib Allergy (Verified 01/29/18 09:22) Unknown valdecoxib Allergy (Verified 01/29/18 09:22) Unknown bee stings Allergy (Severe, Uncoded 01/29/18 09:22) septic Home Medications: Ambulatory Orders Medication Instructions Recorded Albuterol Inhaler [Ventolin Hfa] 1 - 2 puff INHALATION Q6H PRN PRN 03/22/14 Baclofen 10 mg PO DAILY 03/22/14 Diaplex 2 cap PO BID 03/22/14 Diazepam [Valium] 10 mg PO QHS 03/22/14 Omeprazole [Prilosec] 20 mg PO DAILY 03/22/14 Aspirin [Aspirin, Baby] 81 mg PO DAILY@0800 #90 tab.chew 03/24/14 Atorvastatin Calcium [Lipitor] 40 mg PO QHS #90 tab 03/24/14 budesonide-formoterol HFA 160 1 puff INHALATION DAILY 12/26/17 mcg-4.5 mcg/actuation aerosol inhaler ergocalciferol (vitamin D2) 50,000 50,000 unit PO LOPEZ cap 12/26/17 unit capsule gabapentin 300 mg capsule 300 mg PO DAILY 12/26/17 levetiracetam 500 mg tablet 500 mg PO DAILY tab 12/26/17 olanzapine 2.5 mg tablet 2.5 mg PO DAILY 12/26/17 paroxetine 10 mg tablet 20 mg PO QHS tab 12/26/17 Surgical History: Surgical History (Last Updated 12/26/17 @ 15:16 by Ginna Phillips) History of cerebral aneurysm repair (Chronic) Z98.890, Z86.79 Status post clipping History of carpal tunnel release Z98.890 History of tubal ligation Z98.51 Surgical History: ligation, and adenoids Psychiatric History: No pertinent psych hx [employer] History: No pertinent [employer] history Smoking Status: Former smoker - *Family History Maternal Family History: Family History (Last Updated 12/26/17 @ 15:17 by Ginna Phillips) Aunt Asthma Father Heart disease Hypertension CVA (cerebral vascular accident) Uncle Diabetes Grandmother CVA (cerebral vascular accident) History Items: No pertinent history Paternal Family History: Family History (Last Updated 12/26/17 @ 15:17 by Ginna Phillips) Aunt Asthma Father Heart disease Hypertension CVA (cerebral vascular accident) Uncle Diabetes Grandmother CVA (cerebral vascular accident) History Items: No pertinent history Review of Systems Constitutional: Denies: Chills, Fever, Weight Change HEENT: Denies: Difficulty Hearing, Difficulty Swallowing, Nasal bleeding, Nasal Congestion, Sore Throat Cardiovascular: Denies: Chest Pain, Palpitations Respiratory: Denies: Shortness of Breath, Wheezing Gastrointestinal: Denies: Constipation, Diarrhea, Nausea, Vomiting Genitourinary: Denies: Dysuria, Frequency, Hematuria, Incontinence, Urgency Musculoskeletal: Denies: Joint Pain, Muscle pain Skin: Denies: Lesions, Skin Changes Neurological: Denies: Focal weakness, Numbness Psychiatric: Denies: Anxiety, Depression Endocrine: Denies: Heat/ Cold Intolerance Hematologic/ Lymphatic: Denies: Easy Bleeding VTE Information - Inpt Only VTE Present on Admission: No VTE Mechan Device Prophylaxis: SCD's VTE Pharm Prophylaxis ordered?: Yes Subjective: Healthy appearing postmenopausal female. Communicates well. Denies symptoms. - Physical Exam General: Alert HEENT: PERRLA, EOMI, Normocephalic Oral: Moist Mucosa Neck: Supple Abdomen: Bowel Sounds Present, Soft, Non Tender, Non-Distended Extremities: No edema Skin: No rashes Musculoskeletal: No Tenderness to Palpation of Joints or Extremities Lymphatic: No Cervical, Supraclavicular, or Inguinal Adenopathy Neurological: Cranial nerves II-XII grossly intact Psych/Mental Status: Normal Affect Finger Stick Blood Glucose 89 Assessment/Plan All Active Problems (Last Updated 12/26/17 @ 15:16 by Ginna Phillips) Ovarian cyst (Acute) Diverticulosis (Acute) Acute colitis (Acute) 1. 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 Santiago plan RSO in minimally invasive manner medical clearance with multiple medical issues and questionable DVT history - anti-coagulant is planned 2. Diverticulitis Dr. Santiago available day of surgery 3. Smoker 4. Early Dementia
[2018-02-19] VITALS (18 sets, daily range): BP systolic 102–139; BP diastolic 63–80; PULSE 81–118; RESP 10–29; TEMP 36.1–36.9; O2SAT 94–100; BMI 23.9; BMI 24.4
--- NOTE | 2018-02-19 11:33 | RAD_ITS ---
STUDY: X-RAY CHEST REASON FOR EXAM: Female, 62 years old. Cough, preop TECHNIQUE: PA and lateral views of the chest. COMPARISON: None. FINDINGS: The lungs are clear and expanded. There is no demonstrated pleural abnormality. Normal size heart. Normal mediastinum and cary. Normal visualized pulmonary arteries. Normal visualized aortic arch and descending thoracic aorta. Normal visualized thoracic spine. Normal visualized ribs, clavicles, and shoulders. There is no demonstrated abnormality of the visualized soft tissue structures of the upper abdomen. RAD/Chest PA and Lateral IMPRESSION: Normal x-ray examination of the chest. Electronically Signed: Arie Thompson DO at 11:52 EDT Tel , Service support ,
[2018-02-19] MEDS: Heparin Injection (Vial) 5,000 UNIT/ML VIAL 5000 UNIT SC (12:14)
[2018-02-19 12:23] LABS: Anion Gap 7 (5-15); BUN 12 mg/dL (7-18); BUN/Creat Ratio 11.7 RATIO (10-20); Calcium,Total 8.7 mg/dL (8.5-10.1); Chloride 105 mmol/L (98-107); Creatinine, Serum 1.03 mg/dL (0.55-1.02); EST Glomerular Filtration Rate 58 mL/min (>60); Est Glom Filt Rate - Afr Amer 70 mL/min (>60); Estimated Creatinine Clearance 42.73 ml/min; Glucose 97 mg/dL (74-106); Potassium 3.9 mmol/L (3.5-5.1); Sodium Level 135 mmol/L (136-145)
--- NOTE | 2018-02-19 13:00 | COL_PTH ---
PATIENT: GLADYS LAINEZ LOC: MS3 U#:[id number] AGE/SX: 62/F ROOM: MS313 RE02/19/[address]: Dr. Aspen Stacy MD : 1955 BED: 1 DIS: 02/23/2018 SPEC #: [id number] RECD: 02/19/18 17:01 STATUS: KIANA RESteven #: [id number] GARY: 02/19/18 13:[address]: Aspen Stacy DEPT: SURGICAL PATHOLOGY RECD BY: Cordell Dixon ENTERED: 02/20/18 11:05 SP TYPE: COLON OTHR DR: MD Dr. Kellen Park DO Tissues: A - Colon, NOS B - Colon Donuts C - Colon Donuts Procedures: Surgery Specimen Level III Surgery Specimen Level V HEADER OPERATION: Laparoscopic sigmoid colectomy, laparoscopic salpingo-oophorectomy PRE-OP DIAGNOSIS: Ovarian cyst, right TISSUE SUBMITTED: A - Sigmoid colon and right fallopian tube and ovary, B - Proximal donut, C - Distal donut MICROSCOPIC DIAGNOSIS A. Sigmoid colon, right fallopian tube and ovary: Sigmoid colon - diverticulosis and diverticulitis. Pericolonic lymph node with reactive changes. Tubo-ovarian mass - a portion of fallopian tube with acute inflammation and abscess formation. Ovarian tissue is not identified. B. Proximal donut: Colonic donut, no pathologic diagnosis. C. Distal donut: Colonic donut, no pathologic diagnosis. A pericolonic lymph node with reactive changes. QUYNH:trinh 02/24/18 MICROSCOPIC DESCRIPTION Slides are reviewed. GROSS DESCRIPTION A - Received in fixative is one container labeled with the patient's name and designated sigmoid colon, right fallopian tube and ovary. The specimen consists of a segment of colon measuring 20 cm in length and with attached pericolonic adipose tissue and adherent fallopian tube and ovary and tubo-ovarian mass. One resection margin is stapled and the other resection margin is open. The lumen contains fecal material. No mucosal lesion is identified. Sections reveal multiple diverticula. Many of the diverticula are filled with fecal material. A few ruptured diverticula are also noted. The adherent tubes and ovaries measure 4.5 x 5 x 4 cm. The fallopian tubes and ovaries are not identified separately. Sections of the tubo-ovarian mass reveal focal area filled with purulent material. More dictation will follow after overnight fixation. / QUYNH:trinh 02/20/18 Sections of the tubo-ovarian mass reveal three Filshie clips which appear intact. Sections of the pericolonic adipose tissue do not reveal any obviously enlarged lymph node. [employer] sections are submitted in ten cassettes as follow: 1-5 - tubo-ovarian mass, 6-10 - segment of colon (6 - resection margin, open resection margin inked black, 7 & 8 - diverticula, 9 - area of the colon with diverticula with adherent tubo-ovarian mass, 10 - pericolonic adipose tissue with possible lymph nodes. / : 02/23/18 B - Received in fixative is one container labeled with the patient's name and designated proximal donut. The specimen consists of a donut-shaped piece of colonic tissue measuring 1.5 x 1.5 x 1.5 cm. Multiple sutures are noted. [employer] sections are submitted in one cassette. / : 02/20/18 C - Received in fixative is one container labeled with the patient's name and designated distal donut. The specimen consists of a donut-shaped piece of colonic tissue measuring 2 x 2 x 1.5 cm. The mucosa shows focal congestion. The entire specimen is submitted in one cassette. / : 02/20/18 TC:2 CPT: 50709, 43608 x2
[2018-02-19] MEDS: Bupivacaine Mpf 0.5% 30 ML VIAL (14:13)
--- NOTE | 2018-02-19 17:20 | OP.PCM_ITS ---
Problem List (1) Diverticulitis large intestine Status: Acute Qualifiers: Diverticulitis bleeding: without bleeding Diverticulitis complication: with abscess Qualified Code(s): K57.20 - Diverticulitis of large intestine with perforation and abscess without bleeding Report of Operation Date of Procedure: 02/19/18 Pre-Operative Diagnosis: Right ovarian cyst Post-Operative Diagnosis: Chronic diverticulitis with suspected right tubo- ovarian abscess related to diverticulitis Surgery/Procedure Performed:: Laparoscopic sigmoid colectomy. Laparoscopic right salpingo-oophorectomy per Dr. Aspen Stacy Description of Surgical Findings:: I was asked to see this patient intraoperatively. Dr. Stacy had initiated a right salpingo-oophorectomy. The ovary appeared to be densely adherent to the colon. I was asked to assist. I know the family well. I know this disease process will of been insisting. I spoke to her . I scrubbed in. Evidence revealed that the upon dissecting free the right ovary that purulence was encountered. On further inspection it appeared that the right ovary was densely adherent to the sigmoid colon. This appeared to be a diverticulitis related tubo-ovarian abscess. I recommended that the right tube and ovary be resected in block with the colon. Dr. Aspen Stacy then proceeded with a right salpingo-oophorectomy. I assisted as needed. Subsequently having completely released the right tube and ovary with the still attached to the colon I then initiated a laparoscopic sigmoid colectomy. The colon was put on stretch I had to family reports in the right lower quadrant the sigmoid mesentery was transected using the Enseal device down to the retroperitoneum pelvic hollow. I incised the white line of Toldt to give further mobilization. Identified the course of the left ureter and stayed clear. Were needed sigmoid vessels were secured with Hem-o-leila clips prior to transecting with the Enseal. Eventually I had the entire diseased portion of sigmoid colon mobilized with the adherent tube and ovary. I upstage the right lower quadrant foraminal port to a 10 m port I placed a 60 mm gold load [place]. The rectosigmoid was transected cleanly. I then made a Pfannenstiel incision transversely down through the substance tissue the fascia was incised transversely and then vertical axis was gained through the rectus muscle. A wound protector was placed. The bowel was exited. A Netta clamp was placed and the bowel was transected. A lip suture of 2-0 Prolene was placed. A 29 mm anvil with circular anastomotic stapler was selected and the pursestring was secured tightly. The bowel was dropped back within the abdomen. The rectum was irrigated with dilute Betadine solution and then the sling millimeters circular anastomotic stapler was inserted. The trocar was exited under direct visualization it was mated to the anvil. The 2 were approximated direct visualization. The device was fired. The device was removed and the donuts were inspected they were noted to be completely intact. Rigid sigmoidoscopy was performed demonstrating the anastomosis was widely patent hemostasis was intact there was absolutely narrowed no air leak. The pelvis was irrigated and aspirated free. The colon appeared to be quite viable and a good positional lie. The area of the right salpingo-nephrectomy was inspected that was noted to be completely hemostatic. All of the abscess had been removed with no drains were placed. The right lower quadrant telemeter trocar site was closed with a grainy needle in a [id number] of 0 Vicryl. The trochars removed the abdomen was allowed to deflate CO2 the peritoneum at the suprapubic transverse Pfannenstiel incision was closed with a running 0 Vicryl. The anterior fascia was closed with a running 0 PDS. Wound edges were approximated interrupted running septic or 4 Monocryl. The fascia at the u mbilicus approximated with figure 8 suture of interrupted 0 Vicryl. Sponge and instrument and needle counts were reported the surgeon to be correct. Blood loss was 250 cc of blood loss. The wounds were treated with Steri-Strips Telfa OpSite dressings. She was taken to the recovery or insect condition without apparent complication. Specimens include the combined en bloc sigmoid colon with the right tube and ovary. Drains none. Blood loss 250 cc. Brady Santiago M.D., F.A.C.S. Type of Anesthesia:: General Anesthesiologist: Cuong Peñaloza
--- NOTE | 2018-02-19 19:25 | CPS ---
intubated in surgery
--- NOTE | 2018-02-19 19:44 | OP.PCM_ITS ---
Problem List (1) Ovarian cyst Status: Acute Report of Operation Date of Procedure: 02/19/18 Pre-Operative Diagnosis: Right ovarian cyst Post-Operative Diagnosis: Chronic diverticulitis with suspected right tubo- ovarian abscess related to diverticulitis Surgery/Procedure Performed:: Laparoscopic sigmoid colectomy. Laparoscopic right salpingo-oophorectomy per Dr. Aspen Stacy Type of Anesthesia:: General Anesthesiologist: Cuong Peñaloza Special Medications: Cefotetan 2 g IV preoperatively Specimen's removed: Right fallopian tube and right ovary Drains: None Estimated Blood Loss (mL): 250 cc Fluids Replaced: Lactated Ringer Description of Procedure: Patient had undergone a bowel preparation in the current presented to the operating suite. Patient was placed on the sandbag for comfort. Stirrups. Tilt test revealed no movement of the patient. Patient was prepped and draped in the normal sterile fashion.. Weighted speculum was then placed to the vaginal region and the anterior lip of the cervix was grasped and elevated with a single-tooth tenaculum. The uterus was sounded to approximately 7cm changing gloves and turned to the top of the patient Barnes's point was located and a 5 mm incision was incised. 2 gas being placed after abdominal. The Visiport was used to place a 5 mm laparoscope into the abdominal cavity. Investigation of the pelvis occurred with the notation of the left fallopian tube and ovary having some pelvic adhesions to the bowel in the right fallopian tube being almost encompassed by bowel on the posterior side of this entity and over to the pelvic sidewall. Dr. Sanders who has been involved in the patient's case as well operative consult and surgery was notified after Dr. Santiago investigation and after enteral lysis had occurred of the left fallopian tube and left ovary it was decided that right salpingo-oophorectomy initially to allow Dr. Sanders to then mobilize the bowel with the attached ovary and fallopian tube on the right side for removal. The enteral lysis around this right ovarian complex occurred to the point of the location of the infundibulopelvic ligament on the patient's right side. Tracing the ureter from the pelvic brim down into the pelvic region was noted. Cauterization and transection of the patient's right third. The round ligament was then identified and, cauterization, transection of the round ligament occurred the broad ligament was not well defined and actually a large amount of this complex was attached along the length of the round ligament. Sequential removal of layers of scar tissue of the complex to the round ligament thus occurred. The uterine ovarian ligament was cauterized and transected thus eventually releasing the ovary from the uterine support from the pelvic sidewall lateral to that entity to then be only attached to colon. It was at this point in time the Dr. Pamela puente troll of the surgery colectomy procedure. Grafts/Implants Used: None - Complications None - Admit VTE Documentation VTE Present on Admission: No VTE Mechan Device Prophylaxis: SCD's VTE Pharm Prophylaxis ordered?: Yes
[2018-02-19] MEDS: Lactated Ringers 1,000 ML 70 ML IV (20:29)
[2018-02-19] MEDS: fentaNYL drip 100 ML 2.5 MCG IV (20:30)
[2018-02-19 20:55] LABS: Absolute Lymphocyte Count 1.19 X10^3/ul (0.83-4.51); Absolute Neutrophil Count 8.9 X10^3/uL (2.0-7.7); Eosinophil# 0.01 X10^3/uL; Eosinophils% 0.1 % (0-5); Hematocrit 40.7 % (37-47); Hemoglobin 12.6 g/dl (12.0-15.0); Lymphocyte # 1.19 X10^3/ul (4.0); Lymphocyte % 11.2 % (19-41); Mean Corpuscular Hgb 28.1 pg (27.0-32.0); Mean Corpuscular Volume 90.8 fL (81-99); Mean Platelet Vol. 10.2 fl (6.2-12.0); Monocyte# 0.58 X10^3/uL; Monocyte% 5.4 % (0-10); Neutrophil # 8.88 X10^3/uL (2.7-7.7); Neutrophil % 83.2 % (47-70); Platelet Count 243 K/mm3 (150-450); RBC Distribution Width CV 16.1 % (11.6-14.6); RBC Distribution Width SD 52.3 fl (35.1-43.9); Red Blood Count 4.48 M/mm3 (4.2-5.4); White Blood Count 10.7 K/mm3 (4.4-11.0)
[2018-02-19 21:00] LABS: POSITIVE COUNT NO; POSITIVE DIFFERENTIAL NO; POSITIVE MORPHOLOGY NO
[2018-02-19 21:06] LABS: Allen Test POS; Base Excess 1 mmol/L (-2 to +2); Bicarbonate 25.4 mmol/L (22-26); Blood Gas Specimen Type ART; FI02 30; Mode A-C; O2 Delivery Device Vent; PEEP 5; PO2 102 mmHG (75-100); RR 14; SITE R Radial; SO2 98 % (95-99); Time Given 2050; Total Carbon Dioxide 26 mmol/L; Vt 450; pCO2 36.4 mmHg (35-45); pH 7.45 (7.35-7.45)
[2018-02-19] MEDS: Chlorhexidine 15 ML PO (22:00)
[2018-02-19 22:48] LABS: CPK Total, Creatine Kinase 135 U/L (26-192); Triglycerides 93 mg/dL
[2018-02-20] VITALS (31 sets, daily range): BP systolic 90–147; BP diastolic 44–86; PULSE 82–122; RESP 9–25; TEMP 36.2–37.6; O2SAT 92–100
[2018-02-20 04:41] LABS: Absolute Lymphocyte Count 1.31 X10^3/ul (0.83-4.51); Absolute Neutrophil Count 8.8 X10^3/uL (2.0-7.7); Basophil# 0.01 X10^3/uL; Basophil% 0.1 % (0-1); Hematocrit 31.5 % (37-47); Hemoglobin 10.1 g/dl (12.0-15.0); Lymphocyte # 1.31 X10^3/ul (4.0); Lymphocyte % 11.9 % (19-41); Mean Corp Hgb Conc 32.1 g/gl (32-36); Mean Corpuscular Hgb 28.2 pg (27.0-32.0); Mean Platelet Vol. 9.5 fl (6.2-12.0); Monocyte# 0.85 X10^3/uL; Monocyte% 7.7 % (0-10); Neutrophil # 8.81 X10^3/uL (2.7-7.7); Neutrophil % 80.2 % (47-70); Platelet Count 227 K/mm3 (150-450); RBC Distribution Width CV 15.6 % (11.6-14.6); RBC Distribution Width SD 50.1 fl (35.1-43.9); Red Blood Count 3.58 M/mm3 (4.2-5.4)
[2018-02-20 04:42] LABS: POSITIVE COUNT NO; POSITIVE DIFFERENTIAL NO; POSITIVE MORPHOLOGY NO
--- NOTE | 2018-02-20 05:04 | PCM.PN.SRG ---
Patient Problems: Active and Suspected Problems (Last Updated 12/26/17 @ 15:16 by Ginna Phillips) Diverticulitis large intestine (Acute) Subjective: Pt c/o sore throat from ET tube Much more painful than abdomen - Physical Exam General: Alert Lungs: Clear to auscultation Abdomen: Soft, Bowel Sounds Not Present - dressings ddry, Distended Vital Signs Temp Pulse Resp BP Pulse Ox 99.4 F H 108 H 14 99/57 L 100 02/20/18 04:00 02/20/18 04:00 02/20/18 04:00 02/20/18 04:00 02/20/18 04:00 Oxygen Flow Rate (L/min) 15 Oxygen Delivery Method Mechanical Ventilator Weight: 130 lb 8.218 oz Body Mass Index (BMI) 24.4 Finger Stick Blood Glucose 89 Intake and Output for Last 24 Hours 02/18/18 02/19/18 02/20/18 23:59 23:59 23:59 Intake Total 3000.7 / 3000.7 426.2 / 426.2 Output Total 345 / 345 75 / 75 Balance 2655.7 / 2655.7 351.2 / 351.2 Laboratory Tests Past 24 Hrs 02/19/18 02/19/18 02/19/18 11:46 11:46 12:17 WBC RBC Hgb Hct MCV MCH MCHC RDW RDW Differential Plt Count MPV Immature Gran % (Auto) Neut % (Auto) Lymph % (Auto) [place] % (Auto) Eos % (Auto) Baso % (Auto) Absolute Neuts (auto) Absolute Lymphs (auto) Total Counted Specimen Type Sample Site pH Bicarbonate Actual POC Total CO2 Base Excess O2 Saturation O2 % ABG pCO2 ABG pO2 Bhavesh Test Respiration Rate O2 Delivery Device Minute Volume Vent Mode Tidal Volume POC PEEP Blood Gas Notified Whom Blood Gas Notified Time Sodium 135 L Potassium 3.9 Chloride 105 Carbon Dioxide 23.0 Anion Gap 7 BUN 12 Creatinine 1.03 H Estim Creat Clear Calc 42.73 Est GFR (MDRD) Af Amer 70 Est GFR (MDRD) Non-Af 58 L BUN/Creatinine Ratio 11.7 Glucose 97 Calcium 8.7 Phosphorus Magnesium Total Creatine Kinase Triglycerides Blood Type Cancelled A NEGATIVE Antibody Screen Cancelled NEGATIVE 02/19/18 02/19/18 02/19/18 19:44 19:44 21:01 WBC 10.7 RBC 4.48 Hgb 12.6 Hct 40.7 MCV 90.8 MCH 28.1 MCHC 31.0 L RDW 16.1 H RDW Differential 52.3 H Plt Count 243 MPV 10.2 Immature Gran % (Auto) 0.100 Neut % (Auto) 83.2 H Lymph % (Auto) 11.2 L [place] % (Auto) 5.4 Eos % (Auto) 0.1 Baso % (Auto) 0.0 Absolute Neuts (auto) 8.9 H Absolute Lymphs (auto) 1.19 Total Counted Not Reportable Specimen Type ART Sample Site R Radial pH 7.45 Bicarbonate Actual 25.4 POC Total CO2 26 Base Excess 1 O2 Saturation 98 O2 % 30 ABG pCO2 36.4 ABG pO2 102 H Bhavesh Test POS Respiration Rate 14 O2 Delivery Device Vent Minute Volume 6.00 Vent Mode A-C Tidal Volume 450 POC PEEP 5 Blood Gas Notified Whom ICU MD Blood Gas Notified Time 2049 Sodium Cancelled Potassium Cancelled Chloride Cancelled Carbon Dioxide Cancelled Anion Gap Cancelled BUN Cancelled Creatinine Cancelled Estim Creat Clear Calc Cancelled Est GFR (MDRD) Af Amer Cancelled Est GFR (MDRD) Non-Af Cancelled BUN/Creatinine Ratio Cancelled Glucose Cancelled Calcium Cancelled Phosphorus Cancelled Magnesium Cancelled Total Creatine Kinase Triglycerides Blood Type Antibody Screen 02/19/18 02/20/18 02/20/18 21:40 04:20 04:20 WBC 11.0 RBC 3.58 L Hgb 10.1 L Hct 31.5 L MCV 88.0 MCH 28.2 MCHC 32.1 RDW 15.6 H RDW Differential 50.1 H Plt Count 227 MPV 9.5 Immature Gran % (Auto) 0.100 Neut % (Auto) 80.2 H Lymph % (Auto) 11.9 L [place] % (Auto) 7.7 Eos % (Auto) 0.0 Baso % (Auto) 0.1 Absolute Neuts (auto) 8.8 H Absolute Lymphs (auto) 1.31 Total Counted Not Reportable Specimen Type Sample Site pH Bicarbonate Actual POC Total CO2 Base Excess O2 Saturation O2 % ABG pCO2 ABG pO2 Bhavesh Test Respiration Rate O2 Delivery Device Minute Volume Vent Mode Tidal Volume POC PEEP Blood Gas Notified Whom Blood Gas Notified Time Sodium Pending Potassium Pending Chloride Pending Carbon Dioxide Pending Anion Gap Pending BUN Pending Creatinine Pending Estim Creat Clear Calc Est GFR (MDRD) Af Amer Pending Est GFR (MDRD) Non-Af Pending BUN/Creatinine Ratio Pending Glucose Pending Calcium Pending Phosphorus Magnesium Total Creatine Kinase 135 Triglycerides 93 Blood Type Antibody Screen Medical Necessity - Tobacco Use Smoking Status: Former smoker Assessment/Plan All Active Problems (Last Updated 12/26/17 @ 15:16 by Ginna Phillips) Ovarian cyst (Acute) Diverticulitis large intestine (Acute) Diverticulosis (Acute) Acute colitis (Acute) Low UOP Have increased IVF Need to extubate and mobilize and ambulate in halls Labs pending. Pt received lovenox preop and oozed during the case Will hold lovenox until labs return. Need to get back to [facility] protocal and away from drip narcotics etc.
[2018-02-20 05:06] LABS: Anion Gap 9 (5-15); BUN 15 mg/dL (7-18); BUN/Creat Ratio 8.4 RATIO (10-20); Calcium,Total 8.1 mg/dL (8.5-10.1); Chloride 103 mmol/L (98-107); Creatinine, Serum 1.79 mg/dL (0.55-1.02); EST Glomerular Filtration Rate 30 mL/min (>60); Est Glom Filt Rate - Afr Amer 37 mL/min (>60); Estimated Creatinine Clearance 24.59 ml/min; Glucose 142 mg/dL (74-106); Potassium 4.1 mmol/L (3.5-5.1); Sodium Level 138 mmol/L (136-145)
--- NOTE | 2018-02-20 06:44 | PCM.CON.CC ---
Problem List (1) Ovarian cyst Status: Acute Qualifiers: Laterality: left Qualified Code(s): N83.202 - Unspecified ovarian cyst, left side (2) Diverticulitis large intestine Status: Acute Qualifiers: Diverticulitis bleeding: without bleeding Diverticulitis complication: with abscess Qualified Code(s): K57.20 - Diverticulitis of large intestine with perforation and abscess without bleeding (3) Diverticulosis Status: Acute (4) Type II diabetes mellitus Status: Chronic (5) Fibromyalgia Status: Chronic (6) Tobacco dependence syndrome Status: Chronic (7) Osteoporosis Status: Chronic (8) Lupus erythematosus Status: Chronic (9) History of cerebral aneurysm repair Status: Chronic Comment: Status post clipping Reason for Consult Date of Consultation: 02/20/18 Reason for Consultation: Respiratory failure History of Present Illness: The patient is a 62 year old F, with past medical history listed below, who presented to [facility] on 02/19/2018 secondary to plans for removal of ovarian cyst. Patient had a complicated operative course and ended up having a sigmoidectomy also for diverticulosis. Following the surgery, there was some concerns by anesthesia about ability to tolerate extubation. Patient was on T-piece for several hours, but transferred to the intensive care unit overnight for evaluation. While in the intensive care unit, patient remained hemodynamically stable. Patient was set on volume control ventilation overnight to allow her to rest. Patient has not been initiated on any tube feeds. Patient does report significant abdominal pain, but no nausea or vomiting. Patient's blood pressures have been appropriate and there has been no significant desaturations noted. Patient did have some decreased urine output noted. No obvious bleeding has been reported. Unable to obtain a review of systems secondary to intubation. Patient does have a history of early dementia, but the extent of which is unclear at this time. Patient reportedly does have a history of smoking in the past along with a prior cerebral aneurysmal repair and stroke. Patient does use a maintenance inhaler for breathing at home per her medication list. Past Medical History Past Medical History (Chronic Problems): Chronic Problems (Last Updated 12/26/17 @ 15:16 by Ginna Phillips) Type II diabetes mellitus (Chronic) Fibromyalgia (Chronic) Tobacco dependence syndrome (Chronic) Osteoporosis (Chronic) Lupus erythematosus (Chronic) COPD (chronic obstructive pulmonary disease) (Chronic) History of cerebral aneurysm repair (Chronic) Status post clipping Medical History: Medical History (Last Updated 12/26/17 @ 15:16 by Ginna Phillips) Diverticulosis (Acute) K57.90 Acute colitis (Acute) K52.9 Type II diabetes mellitus (Chronic) E11.9 Fibromyalgia (Chronic) Tobacco dependence syndrome (Chronic) F17.200 Osteoporosis (Chronic) M81.0 Lupus erythematosus (Chronic) L93.0 COPD (chronic obstructive pulmonary disease) (Chronic) J44.9 Acute ischemic stroke (Suspected) I63.9 Diverticulitis K57.92 IBS (irritable bowel syndrome) K58.9 Allergies celecoxib [From Celebrex] Allergy (Verified 01/29/18 09:22) Swelling fluoxetine Allergy (Verified 01/29/18 09:22) Unknown hydrocodone Allergy (Verified 01/29/18 09:22) Unknown pneumococcal 23-valent polysacchari [From Pneumovax 23] Allergy (Verified 01/29/18 09:22) Unknown pneumococcal vaccine [Pneumococcal Vaccine] Allergy (Verified 01/29/18 09:22) Rash ranitidine Allergy (Verified 01/29/18 09:22) Unknown rofecoxib Allergy (Verified 01/29/18 09:22) Unknown valdecoxib Allergy (Verified 01/29/18 09:22) Unknown bee stings Allergy (Severe, Uncoded 01/29/18 09:22) septic Home Medications: Ambulatory Orders Medication Instructions Recorded Albuterol Inhaler [Ventolin Hfa] 1 - 2 puff INHALATION Q6H PRN PRN 03/22/14 Baclofen 10 mg PO DAILY 03/22/14 Diaplex 2 cap PO BID 03/22/14 Diazepam [Valium] 10 mg PO QHS 03/22/14 Omeprazole [Prilosec] 20 mg PO DAILY 03/22/14 Aspirin [Aspirin, Baby] 81 mg PO DAILY@0800 #90 tab.chew 03/24/14 Atorvastatin Calcium [Lipitor] 40 mg PO QHS #90 tab 03/24/14 budesonide-formoterol HFA 160 1 puff INHALATION DAILY 12/26/17 mcg-4.5 mcg/actuation aerosol inhaler ergocalciferol (vitamin D2) 50,000 50,000 unit PO LOPEZ cap 12/26/17 unit capsule gabapentin 300 mg capsule 300 mg PO DAILY 12/26/17 levetiracetam 500 mg tablet 500 mg PO DAILY tab 12/26/17 olanzapine 2.5 mg tablet 2.5 mg PO DAILY 12/26/17 paroxetine 10 mg tablet 20 mg PO QHS tab 12/26/17 Surgical History: Surgical History (Last Updated 12/26/17 @ 15:16 by Ginna Phillips) History of cerebral aneurysm repair (Chronic) Z98.890, Z86.79 Status post clipping History of carpal tunnel release Z98.890 History of tubal ligation Z98.51 Surgical History: ligation, and adenoids Psychiatric History: No pertinent psych hx ADDICTION THERAPIST History: No pertinent ADDICTION THERAPIST history Smoking Status: Former smoker - *Family History Maternal Family History: Family History (Last Updated 12/26/17 @ 15:17 by Ginna Phillips) Aunt Asthma Father Heart disease Hypertension CVA (cerebral vascular accident) Uncle Diabetes Grandmother CVA (cerebral vascular accident) History Items: No pertinent history Paternal Family History: Family History (Last Updated 12/26/17 @ 15:17 by Ginna Phillips) Aunt Asthma Father Heart disease Hypertension CVA (cerebral vascular accident) Uncle Diabetes Grandmother CVA (cerebral vascular accident) History Items: No pertinent history Review of Systems Comment: See HPI Patient Problems: Active and Suspected Problems (Last Updated 12/26/17 @ 15:16 by Ginna Phillips) Diverticulitis large intestine (Acute) Objective: Chest x-ray was personally reviewed and shows no acute infiltrates. There is not appear to be significant hyperinflation or mediastinal widening. Patient was able to tolerate 1 hour spontaneous breathing trial. Patient was noted to have a leak around a 6.5 endotracheal tube. Patient was successfully extubated under my direct supervision without complication. - Physical Exam General: Alert, Cooperative, No apparent distress, - - Able to vocalize following extubation HEENT: Atraumatic, PERRLA, EOMI, Normocephalic, - - No scleral icterus or injection noted. Glasses in place. Oral: Moist Mucosa, No Gingival or Mucosal Lesions/ Ulcerations Neck: Supple, No JVD, No Nodes, Trachea Midline Lungs: No rhonchi, No wheeze, No rales, Diminished, - - Symmetric expansion. No dullness to percussion. Cardiovascular: Normal S1, Normal S2, No murmurs, No rub noted, No Gallop, Tachycardic, - - Sinus tachycardia noted on monitor. Abdomen: Soft, Non-Distended, Bowel Sounds Not Present, Tender Extremities: No clubbing, No cyanosis, No edema, Capillary Refill Less than 3 Seconds Skin: No rashes, No breakdown Musculoskeletal: No Tenderness to Palpation of Joints or Extremities Lymphatic: No Cervical, Supraclavicular, or Inguinal Adenopathy Neurological: Cranial nerves II-XII grossly intact, Neuro grossly intact, Motor Exam 5/5 strength throughout Psych/Mental Status: Normal Affect, Appropriate Vital Signs Temp Pulse Resp BP Pulse Ox 37.4 C H 115 H 18 99/57 L 99 02/20/18 04:00 02/20/18 06:12 02/20/18 06:12 02/20/18 04:00 02/20/18 06:12 Oxygen Flow Rate (L/min) 2 Oxygen Delivery Method Nasal Cannula Weight: 59.2 kg Body Mass Index (BMI) 24.4 Finger Stick Blood Glucose 89 Intake and Output for Last 24 Hours 02/18/18 02/19/18 02/20/18 23:59 23:59 23:59 Intake Total 3000.7 / 3000.7 599.2 / 599.2 Output Total 345 / 345 95 / 95 Balance 2655.7 / 2655.7 504.2 / 504.2 Laboratory Tests Past 24 Hrs 02/19/18 02/19/18 02/19/18 11:46 11:46 12:17 WBC RBC Hgb Hct MCV MCH MCHC RDW RDW Differential Plt Count MPV Immature Gran % (Auto) Neut % (Auto) Lymph % (Auto) [place] % (Auto) Eos % (Auto) Baso % (Auto) Absolute Neuts (auto) Absolute Lymphs (auto) Total Counted Specimen Type Sample Site pH Bicarbonate Actual POC Total CO2 Base Excess O2 Saturation O2 % ABG pCO2 ABG pO2 Bhavesh Test Respiration Rate O2 Delivery Device Minute Volume Vent Mode Tidal Volume POC PEEP Blood Gas Notified Whom Blood Gas Notified Time Sodium 135 L Potassium 3.9 Chloride 105 Carbon Dioxide 23.0 Anion Gap 7 BUN 12 Creatinine 1.03 H Estim Creat Clear Calc 42.73 Est GFR (MDRD) Af Amer 70 Est GFR (MDRD) Non-Af 58 L BUN/Creatinine Ratio 11.7 Glucose 97 Calcium 8.7 Phosphorus Magnesium Total Creatine Kinase Triglycerides Blood Type Cancelled A NEGATIVE Antibody Screen Cancelled NEGATIVE 02/19/18 02/19/18 02/19/18 19:44 19:44 21:01 WBC 10.7 RBC 4.48 Hgb 12.6 Hct 40.7 MCV 90.8 MCH 28.1 MCHC 31.0 L RDW 16.1 H RDW Differential 52.3 H Plt Count 243 MPV 10.2 Immature Gran % (Auto) 0.100 Neut % (Auto) 83.2 H Lymph % (Auto) 11.2 L [place] % (Auto) 5.4 Eos % (Auto) 0.1 Baso % (Auto) 0.0 Absolute Neuts (auto) 8.9 H Absolute Lymphs (auto) 1.19 Total Counted Not Reportable Specimen Type ART Sample Site R Radial pH 7.45 Bicarbonate Actual 25.4 POC Total CO2 26 Base Excess 1 O2 Saturation 98 O2 % 30 ABG pCO2 36.4 ABG pO2 102 H Bhavesh Test POS Respiration Rate 14 O2 Delivery Device Vent Minute Volume 6.00 Vent Mode A-C Tidal Volume 450 POC PEEP 5 Blood Gas Notified Whom ICU Blood Gas Notified Time 2049 Sodium Cancelled Potassium Cancelled Chloride Cancelled Carbon Dioxide Cancelled Anion Gap Cancelled BUN Cancelled Creatinine Cancelled Estim Creat Clear Calc Cancelled Est GFR (MDRD) Af Amer Cancelled Est GFR (MDRD) Non-Af Cancelled BUN/Creatinine Ratio Cancelled Glucose Cancelled Calcium Cancelled Phosphorus Cancelled Magnesium Cancelled Total Creatine Kinase Triglycerides Blood Type Antibody Screen 02/19/18 02/20/18 02/20/18 21:40 04:20 04:20 WBC 11.0 RBC 3.58 L Hgb 10.1 L Hct 31.5 L MCV 88.0 MCH 28.2 MCHC 32.1 RDW 15.6 H RDW Differential 50.1 H Plt Count 227 MPV 9.5 Immature Gran % (Auto) 0.100 Neut % (Auto) 80.2 H Lymph % (Auto) 11.9 L [place] % (Auto) 7.7 Eos % (Auto) 0.0 Baso % (Auto) 0.1 Absolute Neuts (auto) 8.8 H Absolute Lymphs (auto) 1.31 Total Counted Not Reportable Specimen Type Sample Site pH Bicarbonate Actual POC Total CO2 Base Excess O2 Saturation O2 % ABG pCO2 ABG pO2 Bhavesh Test Respiration Rate O2 Delivery Device Minute Volume Vent Mode Tidal Volume POC PEEP Blood Gas Notified Whom Blood Gas Notified Time Sodium 138 Potassium 4.1 Chloride 103 Carbon Dioxide 26.0 Anion Gap 9 BUN 15 Creatinine 1.79 H Estim Creat Clear Calc 24.59 Est GFR (MDRD) Af Amer 37 L Est GFR (MDRD) Non-Af 30 L BUN/Creatinine Ratio 8.4 L Glucose 142 H Calcium 8.1 L Phosphorus Magnesium Total Creatine Kinase 135 Triglycerides 93 Blood Type Antibody Screen Clinical Impression(s) from Imaging Studies Chest X-Ray 02/19/18 11:33 IMPRESSION: Normal x-ray examination of the chest. Electronically Signed: Arie Thompson DO at 11:52 EDT Tel , Service support , Assessment/Plan Active and Suspected Problems (Last Updated 12/26/17 @ 15:16 by Ginna Phillips) Diverticulitis large intestine (Acute) RECOMMENDATIONS: 1. Aggressive pulmonary toileting with incentive spirometer 2. Wean oxygen as tolerated 3. Pain control per surgical services 4. Possibly transition to Keppra IV if bowel unable to be used 5. Continue bronchodilators 6. Initiate IV fluids if patient is to remain n.p.o. 7. Patient may be transferred from the intensive care unit later today if doing well from a respiratory standpoint IMPRESSIONS: 1. Acute respiratory failure Patient does have a long history of smoking and is on inhaler therapy at baseline. However, patient does not appear to have signs or symptoms of exacerbation prior to surgery. Patient remained intubated overnight, but was able to be liberated from the ventilator this morning. Continue with bronchodilators. No indication for steroids at this time. Encourage incentive spirometer. Patient does have a history of refusing aerosol therapy in the past. Wean oxygen as tolerated. 2. Ovarian cyst and diverticulitis status post sigmoid colectomy and right salpingo-oophorectomy postop day #1 Patient is reporting issues with abdominal pain. Patient does not have significant bowel sounds at this time on my exam. Will defer to surgical services on initiation of p.o. diet. Patient does have seizure medications that will need to be transition to IV if oral route is not available given seizure disorder. Encourage incentive spirometer and out of bed as tolerated. 3. Acute kidney injury/possible acute blood loss anemia Baseline creatinine appears to be approximately 0.8, but patient is up to 1.8 this morning. Urine output has been marginal. Patient does have a decrease in hemoglobin by 2 g with stable WBC and platelet count despite a reported blood loss of 250 or 500 cc. (Unclear if it is 250 cc of blood loss in total or with each procedure.) Doubt dilution given stability of leukocytosis and platelet count. We will continue to support intravascular volume. Patient should be placed on IV fluids if oral route is not appropriate per surgical services. 4. Fibromyalgia/lupus/reported COPD/history of cerebral aneurysm/diabetes mellitus/chronic pain syndrome Complicates care, management, recovery and prognosis. Okay to continue with baseline medications from my perspective. TIME: 35 minutes critical care time spent addressing patient's acute respiratory failure, acute kidney injury, review of all data and collaboration with care team (5:30 AM to 6:30 AM) Code Visit 9xxxx: [id number] Critical care first hour
[2018-02-20] MEDS: CHLORHEXIDINE GLUC 2% CLOTH 1 EACH TOWELETTE TOPICAL (07:00)
--- NOTE | 2018-02-20 08:28 | PCM.PN.OB ---
Patient Problems: Active and Suspected Problems (Last Updated 12/26/17 @ 15:16 by Ginna Phillips) Diverticulitis large intestine (Acute) Subjective: Main complaint of thirst. Chewing gum. Pain tolerable. - Physical Exam General: Alert, Cooperative, No apparent distress HEENT: Atraumatic, EOMI Oral: Moist Mucosa Neck: Supple Lungs: - - Limited air movement with incisions. Cardiovascular: Regular rate, Regular Rhythm Abdomen: Soft, Non Tender, Non-Distended - Incisions x 6 dry bandages Extremities: No edema, No Calf Tenderness Skin: No rashes Neurological: Cranial nerves II-XII grossly intact Vital Signs Temp Pulse Resp BP Pulse Ox 99.4 F H 122 H 12 147/73 H 98 02/20/18 04:00 02/20/18 07:00 02/20/18 07:00 02/20/18 07:00 02/20/18 07:05 Oxygen Flow Rate (L/min) 2 Oxygen Delivery Method Room Air Weight: 130 lb 8.218 oz Body Mass Index (BMI) 24.4 Finger Stick Blood Glucose 89 Intake and Output for Last 24 Hours 02/18/18 02/19/18 02/20/18 23:59 23:59 23:59 Intake Total 3000.7 / 3000.7 713.2 / 713.2 Output Total 345 / 345 135 / 135 Balance 2655.7 / 2655.7 578.2 / 578.2 Laboratory Tests Past 24 Hrs 02/19/18 02/19/18 02/19/18 11:46 11:46 12:17 WBC RBC Hgb Hct MCV MCH MCHC RDW RDW Differential Plt Count MPV Immature Gran % (Auto) Neut % (Auto) Lymph % (Auto) [place] % (Auto) Eos % (Auto) Baso % (Auto) Absolute Neuts (auto) Absolute Lymphs (auto) Total Counted Specimen Type Sample Site pH Bicarbonate Actual POC Total CO2 Base Excess O2 Saturation O2 % ABG pCO2 ABG pO2 Bhavesh Test Respiration Rate O2 Delivery Device Minute Volume Vent Mode Tidal Volume POC PEEP Blood Gas Notified Whom Blood Gas Notified Time Sodium 135 L Potassium 3.9 Chloride 105 Carbon Dioxide 23.0 Anion Gap 7 BUN 12 Creatinine 1.03 H Estim Creat Clear Calc 42.73 Est GFR (MDRD) Af Amer 70 Est GFR (MDRD) Non-Af 58 L BUN/Creatinine Ratio 11.7 Glucose 97 Calcium 8.7 Phosphorus Magnesium Total Creatine Kinase Triglycerides Blood Type Cancelled A NEGATIVE Antibody Screen Cancelled NEGATIVE 02/19/18 02/19/18 02/19/18 19:44 19:44 21:01 WBC 10.7 RBC 4.48 Hgb 12.6 Hct 40.7 MCV 90.8 MCH 28.1 MCHC 31.0 L RDW 16.1 H RDW Differential 52.3 H Plt Count 243 MPV 10.2 Immature Gran % (Auto) 0.100 Neut % (Auto) 83.2 H Lymph % (Auto) 11.2 L [place] % (Auto) 5.4 Eos % (Auto) 0.1 Baso % (Auto) 0.0 Absolute Neuts (auto) 8.9 H Absolute Lymphs (auto) 1.19 Total Counted Not Reportable Specimen Type ART Sample Site R Radial pH 7.45 Bicarbonate Actual 25.4 POC Total CO2 26 Base Excess 1 O2 Saturation 98 O2 % 30 ABG pCO2 36.4 ABG pO2 102 H Bhavesh Test POS Respiration Rate 14 O2 Delivery Device Vent Minute Volume 6.00 Vent Mode A-C Tidal Volume 450 POC PEEP 5 Blood Gas Notified Whom ICU Blood Gas Notified Time 2049 Sodium Cancelled Potassium Cancelled Chloride Cancelled Carbon Dioxide Cancelled Anion Gap Cancelled BUN Cancelled Creatinine Cancelled Estim Creat Clear Calc Cancelled Est GFR (MDRD) Af Amer Cancelled Est GFR (MDRD) Non-Af Cancelled BUN/Creatinine Ratio Cancelled Glucose Cancelled Calcium Cancelled Phosphorus Cancelled Magnesium Cancelled Total Creatine Kinase Triglycerides Blood Type Antibody Screen 02/19/18 02/20/18 02/20/18 21:40 04:20 04:20 WBC 11.0 RBC 3.58 L Hgb 10.1 L Hct 31.5 L MCV 88.0 MCH 28.2 MCHC 32.1 RDW 15.6 H RDW Differential 50.1 H Plt Count 227 MPV 9.5 Immature Gran % (Auto) 0.100 Neut % (Auto) 80.2 H Lymph % (Auto) 11.9 L [place] % (Auto) 7.7 Eos % (Auto) 0.0 Baso % (Auto) 0.1 Absolute Neuts (auto) 8.8 H Absolute Lymphs (auto) 1.31 Total Counted Not Reportable Specimen Type Sample Site pH Bicarbonate Actual POC Total CO2 Base Excess O2 Saturation O2 % ABG pCO2 ABG pO2 Bhavesh Test Respiration Rate O2 Delivery Device Minute Volume Vent Mode Tidal Volume POC PEEP Blood Gas Notified Whom Blood Gas Notified Time Sodium 138 Potassium 4.1 Chloride 103 Carbon Dioxide 26.0 Anion Gap 9 BUN 15 Creatinine 1.79 H Estim Creat Clear Calc 24.59 Est GFR (MDRD) Af Amer 37 L Est GFR (MDRD) Non-Af 30 L BUN/Creatinine Ratio 8.4 L Glucose 142 H Calcium 8.1 L Phosphorus Magnesium Total Creatine Kinase 135 Triglycerides 93 Blood Type Antibody Screen Medical Necessity - Tobacco Use Smoking Status: Former smoker Assessment/Plan All Active Problems (Last Updated 12/26/17 @ 15:16 by Ginna Phillips) Ovarian cyst (Acute) Diverticulitis large intestine (Acute) Diverticulosis (Acute) Acute colitis (Acute) 1. POD #1 - Laparoscopic right salpingo-oophorectomy(preceding sigmoidectomy) clarifications: Heparin 5000 preop, 250cc total EBL, mechanical bowel prep reviewed surgery with patient along with incision sites Pain per general surgery along with bowel function orders Reviewed preop and intraop course with Dr. Avila no additional requirements for gynecological surgery component beyond the current therapies
--- NOTE | 2018-02-20 08:46 | CASEMGMT ---
LW/POA forms in [place] do is listed as POA. SW printed forms, placed them in paper chart so they can be scanned into the summary tab. NATHANIEL Cho, [employer]
[2018-02-20] MEDS: 0.9% NaCl Peripheral Flush Adult/Peds IV (09:28)
[2018-02-20] MEDS: HYDROmorphone 0.5 MG/0.5 ML SYRINGE IV (09:28)
[2018-02-20] MEDS: Gabapentin 300 MG Capsule PO (10:12)
[2018-02-20] MEDS: levETIRAcetam 500 MG Tablet PO (10:12)
[2018-02-20] MEDS: Baclofen 10 MG Tablet PO (10:12)
[2018-02-20] MEDS: Docusate Sodium 100 MG Capsule PO ×2 (10:12→21:41)
[2018-02-20] MEDS: Pantoprazole Sodium 20 MG Tablet PO (10:12)
[2018-02-20] MEDS: Aspirin 81 MG TAB.CHEW PO (10:12)
[2018-02-20] MEDS: OLANZapine 2.5 MG Tablet PO (10:12)
--- NOTE | 2018-02-20 10:15 | CASEMGMT ---
GINA UP INITIAL REVIEW ASSESSMENT D/C PLAN: Home w/ and support of daughter. Face to Face with patient for initial transition planning/care coordination assessment. GINA UP introduced self and role at [facility]. Care providers, pharmacy, and demographics verified. Pt sitting up in recliner chair in room, awake/alert/oriented. Daughter/POCandelaria Mcdonald, in room with pt and participated in assessment/answering questions. PCP: Dr Jean Preferred Pharmacy: [facility] Insurance: [employer] Medicare Prescription Benefit: yes Living Will/HPOA: Pt has both LW and HPOA, who is daughter, Candelaria. Copies of both found in e-chart. LNOK: Living Arrangements: Lives with who is primary caregiver. Pt and daughter report that assists with all of pt's care, including bathing, , meals, chores, medication mgmt, and finances. Daughter states she also assists/helps when needed. Pt and live in a one-story condo. No steps to enter. Transportation: DME: Pt uses a shower chair and grab bars. She has a cane and walker available but does not use. Ambulates independently. Daughter states pt used to have a medical alert button, but they got rid of it. HHC/SNF: No history of HHC. Pt was at [facility] and then [facility] after having an aneurysm. Pt and daughter both deny need for SNF or HHC agency. Pt's plans on D/C: Wishes to return home. primary caregiver for pt. Family support of daughter. CM to follow for any further discharge planning needs that may arise. Karlos WHITE RN, CM
[2018-02-20] MEDS: Lactated Ringers 1,000 ML 100 ML IV ×2 (12:04→21:47)
[2018-02-20] MEDS: Acetaminophen 500 MG Tablet 1000 MG PO ×2 (13:17→19:17)
[2018-02-20 13:55] LABS: Hematocrit 30.1 % (37-47); Hemoglobin 9.4 g/dl (12.0-15.0)
--- NOTE | 2018-02-20 16:52 | NURSING ---
Education regarding chronic illness deferred until acute illness resolving
--- NOTE | 2018-02-20 17:30 | PCM.PN.BLA ---
Progress Note Pt re-evaluated. Appears comfortable. Has been able to mobilize. Taking tylenol mostly No flatus UOP is improving and is quite clear Abdomen is softly distended, few BS Labs noted with again decrease in Hgb. Pt has received some extra fluids today Lovenox has been held at my request. SCDs and ambulation are in effect Will keep in ICU while watching labs and Hold at clears.
[2018-02-20] MEDS: oxyCODONE 5 MG Tablet PO (17:35)
[2018-02-20] MEDS: PARoxetine 10 MG Tablet 20 MG PO (21:40)
[2018-02-20] MEDS: Atorvastatin Calcium 40 MG Tablet PO (21:41)
[2018-02-21] VITALS (28 sets, daily range): BP systolic 90–141; BP diastolic 43–87; PULSE 72–94; RESP 12–25; TEMP 36.7–37.5; O2SAT 92–100
[2018-02-21] MEDS: Acetaminophen 500 MG Tablet 1000 MG PO ×2 (00:29→06:04)
[2018-02-21 04:28] LABS: Absolute Lymphocyte Count 1.46 X10^3/ul (0.83-4.51); Absolute Neutrophil Count 6.1 X10^3/uL (2.0-7.7); Basophil# 0.01 X10^3/uL; Basophil% 0.1 % (0-1); Eosinophil# 0.07 X10^3/uL; Eosinophils% 0.8 % (0-5); Hemoglobin 7.6 g/dl (12.0-15.0); Lymphocyte # 1.46 X10^3/ul (4.0); Lymphocyte % 17.6 % (19-41); Mean Corp Hgb Conc 31.7 g/gl (32-36); Mean Corpuscular Hgb 28.4 pg (27.0-32.0); Mean Corpuscular Volume 89.6 fL (81-99); Mean Platelet Vol. 8.9 fl (6.2-12.0); Monocyte# 0.63 X10^3/uL; Monocyte% 7.6 % (0-10); Neutrophil # 6.13 X10^3/uL (2.7-7.7); Neutrophil % 73.8 % (47-70); Platelet Count 168 K/mm3 (150-450); RBC Distribution Width CV 15.9 % (11.6-14.6); RBC Distribution Width SD 51.9 fl (35.1-43.9); Red Blood Count 2.68 M/mm3 (4.2-5.4); White Blood Count 8.3 K/mm3 (4.4-11.0)
[2018-02-21 04:29] LABS: POSITIVE COUNT NO; POSITIVE DIFFERENTIAL NO; POSITIVE MORPHOLOGY NO
[2018-02-21 04:46] LABS: Anion Gap 4 (5-15); BUN 15 mg/dL (7-18); BUN/Creat Ratio 15.4 RATIO (10-20); Chloride 107 mmol/L (98-107); Creatinine, Serum 0.97 mg/dL (0.55-1.02); EST Glomerular Filtration Rate 62 mL/min (>60); Est Glom Filt Rate - Afr Amer 75 mL/min (>60); Estimated Creatinine Clearance 45.38 ml/min; Glucose 106 mg/dL (74-106); Potassium 4.2 mmol/L (3.5-5.1); Sodium Level 142 mmol/L (136-145)
--- NOTE | 2018-02-21 05:56 | PCM.PN.SRG ---
Patient Problems: Active and Suspected Problems (Last Updated 12/26/17 @ 15:16 by Ginna Phillips) Diverticulitis large intestine (Acute) Subjective: Pt states she feels much better Several small stools Comfortable at rest - Physical Exam General: Alert, Oriented x3, Cooperative, No apparent distress Lungs: Clear to auscultation Abdomen: Bowel Sounds Present, Soft, Distended - diffusely mildly tender Vital Signs Temp Pulse Resp BP Pulse Ox 98.3 F 84 13 120/56 L 93 02/21/18 04:00 02/21/18 05:00 02/21/18 05:00 02/21/18 05:00 02/21/18 05:00 Oxygen Flow Rate (L/min) 2 Oxygen Delivery Method Room Air Weight: 132 lb 7.965 oz Body Mass Index (BMI) 24.4 Finger Stick Blood Glucose 89 Intake and Output for Last 24 Hours 02/19/18 02/20/18 02/21/18 23:59 23:59 23:59 Intake Total 3000.7 / 3000.7 2591.2 / 2591.2 587 / 587 Output Total 345 / 345 1051 / 1051 630 / 630 Balance 2655.7 / 2655.7 1540.2 / 1540.2 -43 / -43 Laboratory Tests Past 24 Hrs 02/20/18 02/21/18 02/21/18 13:40 04:20 04:20 WBC 8.3 RBC 2.68 L Hgb 9.4 L 7.6 L Hct 30.1 L 24.0 L MCV 89.6 MCH 28.4 MCHC 31.7 L RDW 15.9 H RDW Differential 51.9 H Plt Count 168 MPV 8.9 Immature Gran % (Auto) 0.100 Neut % (Auto) 73.8 H Lymph % (Auto) 17.6 L [place] % (Auto) 7.6 Eos % (Auto) 0.8 Baso % (Auto) 0.1 Absolute Neuts (auto) 6.1 Absolute Lymphs (auto) 1.46 Total Counted Not Reportable Sodium 142 Potassium 4.2 Chloride 107 Carbon Dioxide 31.0 Anion Gap 4 L BUN 15 Creatinine 0.97 Estim Creat Clear Calc 45.38 Est GFR (MDRD) Af Amer 75 Est GFR (MDRD) Non-Af 62 BUN/Creatinine Ratio 15.4 Glucose 106 Calcium 8.0 L Medical Necessity - Tobacco Use Smoking Status: Former smoker Assessment/Plan All Active Problems (Last Updated 12/26/17 @ 15:16 by Ginna Phillips) Ovarian cyst (Acute) Diverticulitis large intestine (Acute) Diverticulosis (Acute) Acute colitis (Acute) BP has improved, HR has lowered, UOP has improved and is clear, ileus is resolving with stool per rectum Hgb has dropped Creatinine has dropped Pt likely bleeding from multiple raw surfaces from ovary and colon resection. Some change related to fluid shifts Decision is whether to return to surgery with every other indicator improving knowing the pt likely will require post op ventilation etc as before. Improved UOP and Vitals suggests this is a very slow process and may stop. I think the decision to return to surgery is not a low risk for this pt so I will give one unit of PRBC and continue to monitor. If labs cannot be stabilized then would propose laparoscopy. Interestingly, frequently when doing this, no source of bleeding is found. Will recheck labs after transfusion. Will diurese prior. I will advance her diet to fulls at this time anticipating stability based upon her other stable parameters. Clinically pt appears notably improved
[2018-02-21] MEDS: Furosemide 20 MG/2 ML VIAL 10 MG IV (06:04)
[2018-02-21] MEDS: 0.9% NaCl Peripheral Flush Adult/Peds IV ×2 (06:05→11:10)
--- NOTE | 2018-02-21 07:04 | PCM.PN.INT ---
Subjective: Patient feels subjectively improved compared to previous. Patient is reporting hunger and believes her abdominal pain is improved. Patient denies any respiratory difficulties. Nursing reports no difficulties overnight. Patient's IV fluids were discontinued and she was given a small dose of Lasix by surgery. General: Alert, Oriented x3, Cooperative, No apparent distress, - - Appears stated age. Speaking in full sentences. HEENT: Atraumatic, PERRLA, EOMI, Normocephalic, - - No scleral icterus or injection noted. Slightly masked facies Oral: Moist Mucosa, No Gingival or Mucosal Lesions/ Ulcerations Neck: Supple, No JVD, No Nodes, Trachea Midline Lungs: Clear to auscultation, Normal air movement, No rhonchi, No wheeze, No rales, - - Symmetric expansion. No dullness to percussion. Achieving 1500 mL's on I-S Cardiovascular: Regular rate, Regular Rhythm, Normal S1, Normal S2, No murmurs, No rub noted, No Gallop Abdomen: Bowel Sounds Present, Soft, Distended, Tender - Diffuse and mild Extremities: No clubbing, No cyanosis, No edema, Capillary Refill Less than 3 Seconds Skin: No rashes, No breakdown, Incision - Clean, dry and intact Musculoskeletal: No Tenderness to Palpation of Joints or Extremities, No Muscle Wasting Lymphatic: No Cervical, Supraclavicular, or Inguinal Adenopathy Neurological: Cranial nerves II-XII grossly intact, Neuro grossly intact, Motor Exam 5/5 strength throughout Psych/Mental Status: Appropriate, Flat Affect Vital Signs Temp Pulse Resp BP Pulse Ox 36.8 C 76 19 H 127/68 H 92 02/21/18 04:00 02/21/18 06:00 02/21/18 06:00 02/21/18 06:00 02/21/18 06:00 Oxygen Flow Rate (L/min) 2 Oxygen Delivery Method Room Air Weight: 60.1 kg Body Mass Index (BMI) 24.4 Finger Stick Blood Glucose 89 Intake and Output for Last 24 Hours 02/19/18 02/20/18 02/21/18 23:59 23:59 23:59 Intake Total 3000.7 / 3000.7 2591.2 / 2591.2 744 / 744 Output Total 345 / 345 1051 / 1051 1160 / 1160 Balance 2655.7 / 2655.7 1540.2 / 1540.2 -416 / -416 Labs (Last 48 Hours) 02/19/18 02/19/18 02/19/18 11:46 11:46 12:17 WBC RBC Hgb Hct MCV MCH MCHC RDW RDW Differential Plt Count MPV Immature Gran % (Auto) Neut % (Auto) Lymph % (Auto) [place] % (Auto) Eos % (Auto) Baso % (Auto) Absolute Neuts (auto) Absolute Lymphs (auto) Total Counted Specimen Type Sample Site pH Bicarbonate Actual POC Total CO2 Base Excess O2 Saturation O2 % ABG pCO2 ABG pO2 Bhavesh Test Respiration Rate O2 Delivery Device Minute Volume Vent Mode Tidal Volume POC PEEP Blood Gas Notified Whom Blood Gas Notified Time Sodium 135 L Potassium 3.9 Chloride 105 Carbon Dioxide 23.0 Anion Gap 7 BUN 12 Creatinine 1.03 H Estim Creat Clear Calc 42.73 Est GFR (MDRD) Af Amer 70 Est GFR (MDRD) Non-Af 58 L BUN/Creatinine Ratio 11.7 Glucose 97 Calcium 8.7 Phosphorus Magnesium Total Creatine Kinase Triglycerides Blood Type Cancelled A NEGATIVE Antibody Screen Cancelled NEGATIVE Crossmatch 02/19/18 02/19/18 02/19/18 12:17 19:44 19:44 WBC 10.7 RBC 4.48 Hgb 12.6 Hct 40.7 MCV 90.8 MCH 28.1 MCHC 31.0 L RDW 16.1 H RDW Differential 52.3 H Plt Count 243 MPV 10.2 Immature Gran % (Auto) 0.100 Neut % (Auto) 83.2 H Lymph % (Auto) 11.2 L [place] % (Auto) 5.4 Eos % (Auto) 0.1 Baso % (Auto) 0.0 Absolute Neuts (auto) 8.9 H Absolute Lymphs (auto) 1.19 Total Counted Not Reportable Specimen Type Sample Site pH Bicarbonate Actual POC Total CO2 Base Excess O2 Saturation O2 % ABG pCO2 ABG pO2 Bhavesh Test Respiration Rate O2 Delivery Device Minute Volume Vent Mode Tidal Volume POC PEEP Blood Gas Notified Whom Blood Gas Notified Time Sodium Cancelled Potassium Cancelled Chloride Cancelled Carbon Dioxide Cancelled Anion Gap Cancelled BUN Cancelled Creatinine Cancelled Estim Creat Clear Calc Cancelled Est GFR (MDRD) Af Amer Cancelled Est GFR (MDRD) Non-Af Cancelled BUN/Creatinine Ratio Cancelled Glucose Cancelled Calcium Cancelled Phosphorus Cancelled Magnesium Cancelled Total Creatine Kinase Triglycerides Blood Type Antibody Screen Crossmatch See Detail 02/19/18 02/19/18 02/20/18 21:01 21:40 04:20 WBC 11.0 RBC 3.58 L Hgb 10.1 L Hct 31.5 L MCV 88.0 MCH 28.2 MCHC 32.1 RDW 15.6 H RDW Differential 50.1 H Plt Count 227 MPV 9.5 Immature Gran % (Auto) 0.100 Neut % (Auto) 80.2 H Lymph % (Auto) 11.9 L [place] % (Auto) 7.7 Eos % (Auto) 0.0 Baso % (Auto) 0.1 Absolute Neuts (auto) 8.8 H Absolute Lymphs (auto) 1.31 Total Counted Not Reportable Specimen Type ART Sample Site R Radial pH 7.45 Bicarbonate Actual 25.4 POC Total CO2 26 Base Excess 1 O2 Saturation 98 O2 % 30 ABG pCO2 36.4 ABG pO2 102 H Bhavesh Test POS Respiration Rate 14 O2 Delivery Device Vent Minute Volume 6.00 Vent Mode A-C Tidal Volume 450 POC PEEP 5 Blood Gas Notified Whom ICU Blood Gas Notified Time 2049 Sodium Potassium Chloride Carbon Dioxide Anion Gap BUN Creatinine Estim Creat Clear Calc Est GFR (MDRD) Af Amer Est GFR (MDRD) Non-Af BUN/Creatinine Ratio Glucose Calcium Phosphorus Magnesium Total Creatine Kinase 135 Triglycerides 93 Blood Type Antibody Screen Crossmatch 02/20/18 02/20/18 02/21/18 04:20 13:40 04:20 WBC 8.3 RBC 2.68 L Hgb 9.4 L 7.6 L Hct 30.1 L 24.0 L MCV 89.6 MCH 28.4 MCHC 31.7 L RDW 15.9 H RDW Differential 51.9 H Plt Count 168 MPV 8.9 Immature Gran % (Auto) 0.100 Neut % (Auto) 73.8 H Lymph % (Auto) 17.6 L [place] % (Auto) 7.6 Eos % (Auto) 0.8 Baso % (Auto) 0.1 Absolute Neuts (auto) 6.1 Absolute Lymphs (auto) 1.46 Total Counted Not Reportable Specimen Type Sample Site pH Bicarbonate Actual POC Total CO2 Base Excess O2 Saturation O2 % ABG pCO2 ABG pO2 Bhavesh Test Respiration Rate O2 Delivery Device Minute Volume Vent Mode Tidal Volume POC PEEP Blood Gas Notified Whom Blood Gas Notified Time Sodium 138 Potassium 4.1 Chloride 103 Carbon Dioxide 26.0 Anion Gap 9 BUN 15 Creatinine 1.79 H Estim Creat Clear Calc 24.59 Est GFR (MDRD) Af Amer 37 L Est GFR (MDRD) Non-Af 30 L BUN/Creatinine Ratio 8.4 L Glucose 142 H Calcium 8.1 L Phosphorus Magnesium Total Creatine Kinase Triglycerides Blood Type Antibody Screen Crossmatch 02/21/18 04:20 WBC RBC Hgb Hct MCV MCH MCHC RDW RDW Differential Plt Count MPV Immature Gran % (Auto) Neut % (Auto) Lymph % (Auto) [place] % (Auto) Eos % (Auto) Baso % (Auto) Absolute Neuts (auto) Absolute Lymphs (auto) Total Counted Specimen Type Sample Site pH Bicarbonate Actual POC Total CO2 Base Excess O2 Saturation O2 % ABG pCO2 ABG pO2 Bhavesh Test Respiration Rate O2 Delivery Device Minute Volume Vent Mode Tidal Volume POC PEEP Blood Gas Notified Whom Blood Gas Notified Time Sodium 142 Potassium 4.2 Chloride 107 Carbon Dioxide 31.0 Anion Gap 4 L BUN 15 Creatinine 0.97 Estim Creat Clear Calc 45.38 Est GFR (MDRD) Af Amer 75 Est GFR (MDRD) Non-Af 62 BUN/Creatinine Ratio 15.4 Glucose 106 Calcium 8.0 L Phosphorus Magnesium Total Creatine Kinase Triglycerides Blood Type Antibody Screen Crossmatch Medical Necessity - Tobacco Use Smoking Status: Former smoker Assessment/Plan All Active Problems (Last Updated 12/26/17 @ 15:16 by Ginna Phillips) Ovarian cyst (Acute) Diverticulitis large intestine (Acute) Diverticulosis (Acute) Acute colitis (Acute) RECOMMENDATIONS: 1. Aggressive pulmonary toileting with incentive spirometer 2. Pain control per surgical services 4. Continue baseline medications 5. Okay to resume baseline inhaler therapy on discharge 6. Hemodynamically stable. Will sign off from a critical care perspective IMPRESSIONS: 1. Acute respiratory failure Patient does have a long history of smoking and is on inhaler therapy at baseline. However, patient does not appear to have signs or symptoms of exacerbation prior to surgery. Patient appears to be back to her baseline at this time. No sequela such as aspiration pneumonia appear to be present at this time. Okay to continue with baseline respiratory medications. No indication for supplemental oxygen. Hemodynamically stable on room air, so will sign off from a critical care perspective. Please call with any further issues. 2. Ovarian cyst and diverticulitis status post sigmoid colectomy and right salpingo-oophorectomy postop day #2 Patient is subjectively improved compared to previous. Patient did have a drop in hemoglobin, but was on IV fluids and is positive approximately 4 L over the course of the hospitalization, excluding surgery. All blood lines are decreased, so dilution is suspected. Patient is getting an unit of blood per surgery. 3. Acute kidney injury/possible acute blood loss anemia Patient is responded very well to fluid resuscitation. Creatinine is approaching her baseline. Likely okay to discontinue IV fluids from a renal perspective. Patient did have a drop in hemoglobin, but a unit has been ordered. Patient subjectively is improving, so doubt postoperative bleeding. Await repeat H&H. Surgery is following. 4. Fibromyalgia/lupus/reported COPD/history of cerebral aneurysm/diabetes mellitus/chronic pain syndrome Complicates care, management, recovery and prognosis. Okay to continue with baseline medications from my perspective. Code Visit Inpatient E&M: 59114 Subs Hosp L2
--- NOTE | 2018-02-21 07:12 | PCM.PN.BLA ---
Progress Note I was just reminded by staff that we have no OR availability today secondary to mechanical work This makes the decision for transfusion and observation at this moment my only choice.
[2018-02-21] MEDS: oxyCODONE 5 MG Tablet PO ×2 (07:40→16:50)
[2018-02-21] MEDS: 0.9% NaCl IVPB Med Flush (250 mL) 15 ML IV (08:00)
[2018-02-21] MEDS: Aspirin 81 MG TAB.CHEW PO (10:14)
[2018-02-21] MEDS: levETIRAcetam 500 MG Tablet PO (10:15)
[2018-02-21] MEDS: Gabapentin 300 MG Capsule PO (10:15)
[2018-02-21] MEDS: Docusate Sodium 100 MG Capsule PO (10:15)
[2018-02-21] MEDS: OLANZapine 2.5 MG Tablet PO (10:16)
[2018-02-21] MEDS: Pantoprazole Sodium 20 MG Tablet PO (10:16)
[2018-02-21] MEDS: Baclofen 10 MG Tablet PO (10:16)
[2018-02-21] MEDS: CHLORHEXIDINE GLUC 2% CLOTH 1 EACH TOWELETTE TOPICAL (10:16)
[2018-02-21 13:22] LABS: Hematocrit 28.1 % (37-47); Hemoglobin 9.1 g/dl (12.0-15.0)
[2018-02-21] MEDS: Ensure Surgery 237 ML LIQUID PO (14:20)
[2018-02-21 14:51] LABS: Potassium 3.9 mmol/L (3.5-5.1)
--- NOTE | 2018-02-21 15:57 | PN.OBGYN_ITS ---
Patient Problems: Active and Suspected Problems (Last Updated 12/26/17 @ 15:16 by Ginna Phillips) Diverticulitis large intestine (Acute) Subjective: Patient is hungry. + flatus. No nausea. States pain is tolerable. Transfer to floor shortly. - Physical Exam General: Alert, Oriented x3 HEENT: PERRLA Oral: Moist Mucosa Neck: Supple Lungs: - - Limited deep breathing but normal air movement. No wheeze Cardiovascular: Regular rate, Regular Rhythm Abdomen: Bowel Sounds Present, Soft, Non Tender, Non-Distended, - - Incisions dry Extremities: No edema, No Calf Tenderness Skin: No rashes Musculoskeletal: No Tenderness to Palpation of Joints or Extremities Neurological: Cranial nerves II-XII grossly intact Vital Signs Temp Pulse Resp BP Pulse Ox 98.2 F 81 12 110/53 L 96 02/21/18 15:30 02/21/18 15:30 02/21/18 15:30 02/21/18 15:30 02/21/18 15:30 Oxygen Flow Rate (L/min) 2 Oxygen Delivery Method Room Air Weight: 132 lb 7.965 oz Body Mass Index (BMI) 24.4 Finger Stick Blood Glucose 89 Intake and Output for Last 24 Hours 02/19/18 02/20/18 02/21/18 23:59 23:59 23:59 Intake Total 3000.7 / 3000.7 2591.2 / 2591.2 1294 / 1294 Output Total 345 / 345 1051 / 1051 1760 / 1760 Balance 2655.7 / 2655.7 1540.2 / 1540.2 -466 / -466 Laboratory Tests Past 24 Hrs 02/19/18 02/21/18 02/21/18 12:17 04:20 04:20 WBC 8.3 RBC 2.68 L Hgb 7.6 L Hct 24.0 L MCV 89.6 MCH 28.4 MCHC 31.7 L RDW 15.9 H RDW Differential 51.9 H Plt Count 168 MPV 8.9 Immature Gran % (Auto) 0.100 Neut % (Auto) 73.8 H Lymph % (Auto) 17.6 L [place] % (Auto) 7.6 Eos % (Auto) 0.8 Baso % (Auto) 0.1 Absolute Neuts (auto) 6.1 Absolute Lymphs (auto) 1.46 Total Counted Not Reportable Sodium 142 Potassium 4.2 Chloride 107 Carbon Dioxide 31.0 Anion Gap 4 L BUN 15 Creatinine 0.97 Estim Creat Clear Calc 45.38 Est GFR (MDRD) Af Amer 75 Est GFR (MDRD) Non-Af 62 BUN/Creatinine Ratio 15.4 Glucose 106 Calcium 8.0 L Crossmatch See Detail 02/21/18 02/21/18 13:00 14:35 WBC RBC Hgb 9.1 L Hct 28.1 L MCV MCH MCHC RDW RDW Differential Plt Count MPV Immature Gran % (Auto) Neut % (Auto) Lymph % (Auto) [place] % (Auto) Eos % (Auto) Baso % (Auto) Absolute Neuts (auto) Absolute Lymphs (auto) Total Counted Sodium Potassium 3.9 Chloride Carbon Dioxide Anion Gap BUN Creatinine Estim Creat Clear Calc Est GFR (MDRD) Af Amer Est GFR (MDRD) Non-Af BUN/Creatinine Ratio Glucose Calcium Crossmatch Medical Necessity - Tobacco Use Smoking Status: Former smoker Assessment/Plan All Active Problems (Last Updated 12/26/17 @ 15:16 by Ginna Phillips) Ovarian cyst (Acute) Diverticulitis large intestine (Acute) Diverticulosis (Acute) Acute colitis (Acute) 1. POD #2 - Laparoscopic right salpingo-oophorectomy(preceding sigmoidectomy) clarifications: Heparin 5000 preop, 250cc total EBL, mechanical bowel prep s/p 1 unit PRBC and stabilized blood count Pain per general surgery along with bowel function orders Transfer to floor for ongoing care Discussed ambulation, incentive spirometer
--- NOTE | 2018-02-21 16:45 | NURSING ---
Report called to [facility] RN
--- NOTE | 2018-02-21 17:15 | NURSING ---
Pt transferred to [id number] per wheelchair. HEDIS ABSTRACTOR in attendance.
--- NOTE | 2018-02-21 17:20 | NURSING ---
Report called to [facility] RN
[2018-02-21] MEDS: diazePAM 5 MG Tablet 10 MG PO (20:31)
[2018-02-21] MEDS: PARoxetine 10 MG Tablet 20 MG PO (20:36)
[2018-02-21] MEDS: Atorvastatin Calcium 40 MG Tablet PO (20:36)
[2018-02-22 04:25] VITALS: BP 154/82; PULSE 74; RESP 18; TEMP 37.7; O2SAT 96
[2018-02-22] MEDS: 0.9% NaCl Peripheral Flush Adult/Peds IV (04:26)
[2018-02-22] MEDS: oxyCODONE 5 MG Tablet PO (04:27)
[2018-02-22 06:52] LABS: Hemoglobin 9.2 g/dl (12.0-15.0); Mean Corp Hgb Conc 31.7 g/gl (32-36); Mean Corpuscular Hgb 29.1 pg (27.0-32.0); Mean Corpuscular Volume 91.8 fL (81-99); Mean Platelet Vol. 9.7 fl (6.2-12.0); Platelet Count 201 K/mm3 (150-450); RBC Distribution Width CV 14.9 % (11.6-14.6); RBC Distribution Width SD 48.2 fl (35.1-43.9); Red Blood Count 3.16 M/mm3 (4.2-5.4); White Blood Count 7.8 K/mm3 (4.4-11.0)
[2018-02-22 06:58] LABS: Scan Indicated on CBC? Y/N NO
[2018-02-22 07:09] LABS: Anion Gap 4 (5-15); BUN 11 mg/dL (7-18); BUN/Creat Ratio 12.6 RATIO (10-20); Chloride 105 mmol/L (98-107); Creatinine, Serum 0.88 mg/dL (0.55-1.02); EST Glomerular Filtration Rate 69 mL/min (>60); Est Glom Filt Rate - Afr Amer 84 mL/min (>60); Estimated Creatinine Clearance 50.02 ml/min; Glucose 96 mg/dL (74-106); Potassium 3.8 mmol/L (3.5-5.1); Sodium Level 140 mmol/L (136-145)
[2018-02-22] MEDS: Baclofen 10 MG Tablet PO (08:08)
[2018-02-22] MEDS: Aspirin 81 MG TAB.CHEW PO (08:08)
[2018-02-22] MEDS: Gabapentin 300 MG Capsule PO (08:09)
[2018-02-22 08:44] LABS: Bacteria 0 SEEN /hpf (None Seen); Mucous, Urine 0 SEEN /hpf (<or=2+); Red Blood Cells-Urine 0 SEEN /hpf (0-5); Squamous Epithelial Cells - UA 0 SEEN /hpf (5-10); White Blood Cells 0 SEEN /hpf (0-5)
[2018-02-22 09:19] LABS: Color, Urine Yellow (Yellow); Glucose, Dipstick Normal (Normal); Ketone-Dipstick Negative (Negative); Leukocyte Esterase-Dipstick Negative /ul (Negative); Nitrite-Dipstick Negative (Negative); Occult Blood-Urine 50 /ul (Negative); Protein-Dipstick 15 mg/dl (Negative); Urine Bilirubin Dipstick Negative (Negative); Urine Clarity Sl. Cloudy (Clear); Urine Urobilinogen Normal (Normal)
[2018-02-22] MEDS: levETIRAcetam 500 MG Tablet PO (10:14)
[2018-02-22] MEDS: Pantoprazole Sodium 20 MG Tablet PO (10:16)
--- NOTE | 2018-02-22 10:16 | PCM.PN.SRG ---
Patient Problems: Active and Suspected Problems (Last Updated 12/26/17 @ 15:16 by Ginna Pihllips) Diverticulitis large intestine (Acute) Subjective: Patient looks remarkably well this morning sitting up in the chair and eating an omelette no complaints Objective: Her abdomen is soft nondistended appropriately tender at incision sites. No rebound guarding or peritoneal signs. - Physical Exam Vital Signs Temp Pulse Resp BP Pulse Ox 99.8 F H 74 18 154/82 H 96 02/22/18 04:25 02/22/18 04:25 02/22/18 04:25 02/22/18 04:25 02/22/18 04:25 Oxygen Flow Rate (L/min) 2 Oxygen Delivery Method Room Air Weight: 132 lb 7.965 oz Body Mass Index (BMI) 24.4 Finger Stick Blood Glucose 89 Intake and Output for Last 24 Hours 02/20/18 02/21/18 02/22/18 23:59 23:59 23:59 Intake Total 2591.2 / 2591.2 2023 / 2023 200 / 200 Output Total 1051 / 1051 2120 / 2120 500 / 500 Balance 1540.2 / 1540.2 -96 / -96 -300 / -300 Laboratory Tests Past 24 Hrs 02/19/18 02/21/18 02/21/18 12:17 13:00 14:35 WBC RBC Hgb 9.1 L Hct 28.1 L MCV MCH MCHC RDW RDW Differential Plt Count MPV Sodium Potassium 3.9 Chloride Carbon Dioxide Anion Gap BUN Creatinine Estim Creat Clear Calc Est GFR (MDRD) Af Amer Est GFR (MDRD) Non-Af BUN/Creatinine Ratio Glucose Calcium Urine Color Urine Clarity Urine pH Ur Specific [place] Urine Protein Urine Glucose (UA) Urine Ketones Urine Occult Blood Urine Nitrite Urine Bilirubin Urine Urobilinogen Ur Leukocyte Esterase Urine RBC Urine WBC Ur Squamous Epith Cells Urine Bacteria Urine Mucus Crossmatch See Detail 02/22/18 02/22/18 02/22/18 06:23 06:23 08:30 WBC 7.8 RBC 3.16 L Hgb 9.2 L Hct 29.0 L MCV 91.8 MCH 29.1 MCHC 31.7 L RDW 14.9 H RDW Differential 48.2 H Plt Count 201 MPV 9.7 Sodium 140 Potassium 3.8 Chloride 105 Carbon Dioxide 31.0 Anion Gap 4 L BUN 11 Creatinine 0.88 Estim Creat Clear Calc 50.02 Est GFR (MDRD) Af Amer 84 Est GFR (MDRD) Non-Af 69 BUN/Creatinine Ratio 12.6 Glucose 96 Calcium 8.0 L Urine Color Yellow Urine Clarity Sl. Cloudy Urine pH 8.0 Ur Specific [place] 1.010 Urine Protein 15 H Urine Glucose (UA) Normal Urine Ketones Negative Urine Occult Blood 50 H Urine Nitrite Negative Urine Bilirubin Negative Urine Urobilinogen Normal Ur Leukocyte Esterase Negative Urine RBC 0 SEEN Urine WBC 0 SEEN Ur Squamous Epith Cells 0 SEEN Urine Bacteria 0 SEEN Urine Mucus 0 SEEN Crossmatch Medical Necessity - Tobacco Use Smoking Status: Former smoker Assessment/Plan All Active Problems (Last Updated 12/26/17 @ 15:16 by Ginna Phillips) Ovarian cyst (Acute) Diverticulitis large intestine (Acute) Diverticulosis (Acute) Acute colitis (Acute) Hemoglobin is stable at 9.2. Would probably benefit from 1 more day at the hospital and discharged on Friday.
[2018-02-22 10:23] VITALS: BP 137/62; PULSE 86; RESP 16; TEMP 36.7; O2SAT 97
[2018-02-22] MEDS: Acetaminophen 500 MG Tablet 1000 MG PO ×3 (13:02→23:08)
[2018-02-22] MEDS: OLANZapine 2.5 MG Tablet PO (13:02)
--- NOTE | 2018-02-22 13:16 | PCM.PN.OB ---
Patient Problems: Active and Suspected Problems (Last Updated 12/26/17 @ 15:16 by Ginna Phillips) Diverticulitis large intestine (Acute) Subjective: Just discovered C. Diff present and disappointed. Previous occurrence with shoulder surgery. Tolerating po intake. Ambulating well. Pain is tolerable. - Physical Exam General: Alert, Oriented x3 HEENT: Atraumatic Oral: Moist Mucosa Neck: Supple Lungs: Clear to auscultation Cardiovascular: Regular rate, Regular Rhythm Abdomen: Bowel Sounds Present, Soft, - - Incisions clear x 6 Extremities: No edema, No Calf Tenderness Skin: No rashes Musculoskeletal: No Tenderness to Palpation of Joints or Extremities Neurological: Cranial nerves II-XII grossly intact Vital Signs Temp Pulse Resp BP Pulse Ox 98.1 F 86 16 137/62 H 97 02/22/18 10:23 02/22/18 10:23 02/22/18 10:23 02/22/18 10:23 02/22/18 10:23 Oxygen Flow Rate (L/min) 2 Oxygen Delivery Method Room Air Weight: 132 lb 7.965 oz Body Mass Index (BMI) 24.4 Finger Stick Blood Glucose 89 Intake and Output for Last 24 Hours 02/20/18 02/21/18 02/22/18 23:59 23:59 23:59 Intake Total 2591.2 / 2591.2 2023 / 2023 560 / 560 Output Total 1051 / 1051 2120 / 2120 500 / 500 Balance 1540.2 / 1540.2 -96 / -96 60 / 60 Microbiology Past 72 Hours 02/22/18 09:47 C. difficile DNA Amplification - Final Stool Toxigenic C. difficile DNA Laboratory Tests Past 24 Hrs 02/21/18 02/21/18 02/22/18 13:00 14:35 06:23 WBC 7.8 RBC 3.16 L Hgb 9.1 L 9.2 L Hct 28.1 L 29.0 L MCV 91.8 MCH 29.1 MCHC 31.7 L RDW 14.9 H RDW Differential 48.2 H Plt Count 201 MPV 9.7 Sodium Potassium 3.9 Chloride Carbon Dioxide Anion Gap BUN Creatinine Estim Creat Clear Calc Est GFR (MDRD) Af Amer Est GFR (MDRD) Non-Af BUN/Creatinine Ratio Glucose Calcium Urine Color Urine Clarity Urine pH Ur Specific [place] Urine Protein Urine Glucose (UA) Urine Ketones Urine Occult Blood Urine Nitrite Urine Bilirubin Urine Urobilinogen Ur Leukocyte Esterase Urine RBC Urine WBC Ur Squamous Epith Cells Urine Bacteria Urine Mucus 02/22/18 02/22/18 06:23 08:30 WBC RBC Hgb Hct MCV MCH MCHC RDW RDW Differential Plt Count MPV Sodium 140 Potassium 3.8 Chloride 105 Carbon Dioxide 31.0 Anion Gap 4 L BUN 11 Creatinine 0.88 Estim Creat Clear Calc 50.02 Est GFR (MDRD) Af Amer 84 Est GFR (MDRD) Non-Af 69 BUN/Creatinine Ratio 12.6 Glucose 96 Calcium 8.0 L Urine Color Yellow Urine Clarity Sl. Cloudy Urine pH 8.0 Ur Specific [place] 1.010 Urine Protein 15 H Urine Glucose (UA) Normal Urine Ketones Negative Urine Occult Blood 50 H Urine Nitrite Negative Urine Bilirubin Negative Urine Urobilinogen Normal Ur Leukocyte Esterase Negative Urine RBC 0 SEEN Urine WBC 0 SEEN Ur Squamous Epith Cells 0 SEEN Urine Bacteria 0 SEEN Urine Mucus 0 SEEN Medical Necessity - Tobacco Use Smoking Status: Former smoker Assessment/Plan All Active Problems (Last Updated 12/26/17 @ 15:16 by Ginna Phillips) Ovarian cyst (Acute) Diverticulitis large intestine (Acute) Diverticulosis (Acute) Acute colitis (Acute) 1. POD #3 - Laparoscopic right salpingo-oophorectomy(preceding sigmoidectomy) clarifications: Heparin 5000 preop, 250cc total EBL, mechanical bowel prep s/p 1 unit PRBC and stabilized blood count Pain per general surgery along with bowel function orders Encouraged ambulation and incentive spirometer. Encouraged water intake 2. C. diff previous occurrence Vancomycin started
--- NOTE | 2018-02-22 13:32 | CON.PCM_ITS ---
Problem List (1) Ovarian cyst Status: Acute Qualifiers: Laterality: left Qualified Code(s): N83.202 - Unspecified ovarian cyst, left side (2) Diverticulitis large intestine Status: Acute Qualifiers: Diverticulitis bleeding: without bleeding Diverticulitis complication: with abscess Qualified Code(s): K57.20 - Diverticulitis of large intestine with perforation and abscess without bleeding (3) Diverticulosis Status: Acute (4) Acute colitis Status: Acute (5) Type II diabetes mellitus Status: Chronic (6) Fibromyalgia Status: Chronic (7) Tobacco dependence syndrome Status: Chronic (8) Osteoporosis Status: Chronic (9) Lupus erythematosus Status: Chronic (10) COPD (chronic obstructive pulmonary disease) Status: Chronic (11) History of cerebral aneurysm repair Status: Chronic Comment: Status post clipping (12) Acute ischemic stroke Status: Suspected (13) C. difficile colitis Status: Acute Reason for Consult Date of Consultation: 02/22/18 Reason for Consultation: For C. difficile colitis History of Present Illness: The patient is a 62 year old F who was admitted for electively for evaluation of ovarian cyst and diverticulitis. She was found to have instance of diverticulitis coincide with ovarian cyst and felt to be right tubo-ovarian abscess related to diverticulitis. She had diverticulitis of large intestine 9 with perforation and abscess without bleeding. After medical clearance, she had laparoscopic sigmoid colectomy by Dr. Santiago and right salpingo-oophorectomy by Dr. Tejeda. She has diarrhea, loose bowel movement since and yesterday was almost every hour or 2, low volume as per the patient. Today she had 3 bowel movements. She was found to have C. difficile positive. Hospitalist team was consulted for management of C. difficile colitis. [] She has mild soreness of abdomen expected from laparoscopic surgery. Temperature 99.8 Fahrenheit. No hypotension, tachypnea or hypoxia. Of note, he had PFT which shows moderately severe obstructive lung disease, FVC 66% of predicted and FEV1 57%. Past Medical History Past Medical History (Chronic Problems): Chronic Problems (Last Updated 12/26/17 @ 15:16 by Ginna Phillips) Type II diabetes mellitus (Chronic) Fibromyalgia (Chronic) Tobacco dependence syndrome (Chronic) Osteoporosis (Chronic) Lupus erythematosus (Chronic) COPD (chronic obstructive pulmonary disease) (Chronic) History of cerebral aneurysm repair (Chronic) Status post clipping Medical History: Medical History (Last Updated 12/26/17 @ 15:16 by Ginna Phillips) Diverticulosis (Acute) K57.90 Acute colitis (Acute) K52.9 Type II diabetes mellitus (Chronic) E11.9 Fibromyalgia (Chronic) Tobacco dependence syndrome (Chronic) F17.200 Osteoporosis (Chronic) M81.0 Lupus erythematosus (Chronic) L93.0 COPD (chronic obstructive pulmonary disease) (Chronic) J44.9 Acute ischemic stroke (Suspected) I63.9 Diverticulitis K57.92 IBS (irritable bowel syndrome) K58.9 Allergies celecoxib [From Celebrex] Allergy (Verified 01/29/18 09:22) Swelling fluoxetine Allergy (Verified 01/29/18 09:22) Unknown hydrocodone Allergy (Verified 01/29/18 09:22) Unknown pneumococcal 23-valent polysacchari [From Pneumovax 23] Allergy (Verified 01/29/18 09:22) Unknown pneumococcal vaccine [Pneumococcal Vaccine] Allergy (Verified 01/29/18 09:22) Rash ranitidine Allergy (Verified 01/29/18 09:22) Unknown rofecoxib Allergy (Verified 01/29/18 09:22) Unknown valdecoxib Allergy (Verified 01/29/18 09:22) Unknown bee stings Allergy (Severe, Uncoded 01/29/18 09:22) septic Home Medications: Ambulatory Orders Medication Instructions Recorded Albuterol Inhaler [Ventolin Hfa] 1 - 2 puff INHALATION Q6H PRN PRN 03/22/14 Baclofen 10 mg PO DAILY 03/22/14 Diaplex 2 cap PO BID 03/22/14 Diazepam [Valium] 10 mg PO QHS 03/22/14 Omeprazole [Prilosec] 20 mg PO DAILY 03/22/14 Aspirin [Aspirin, Baby] 81 mg PO DAILY@0800 #90 tab.chew 03/24/14 Atorvastatin Calcium [Lipitor] 40 mg PO QHS #90 tab 03/24/14 budesonide-formoterol HFA 160 1 puff INHALATION DAILY 12/26/17 mcg-4.5 mcg/actuation aerosol inhaler ergocalciferol (vitamin D2) 50,000 50,000 unit PO LOPEZ cap 12/26/17 unit capsule gabapentin 300 mg capsule 300 mg PO DAILY 08/24/18 levetiracetam 500 mg tablet 500 mg PO DAILY tab 12/26/17 olanzapine 2.5 mg tablet 2.5 mg PO DAILY 12/26/17 paroxetine 10 mg tablet 20 mg PO QHS tab 12/26/17 Surgical History: Surgical History (Last Updated 12/26/17 @ 15:16 by Ginna Phillips) History of cerebral aneurysm repair (Chronic) Z98.890, Z86.79 Status post clipping History of carpal tunnel release Z98.890 History of tubal ligation Z98.51 Surgical History: ligation, and adenoids Psychiatric History: No pertinent psych hx [employer] History: No pertinent [employer] history Smoking Status: Former smoker - *Family History Maternal Family History: Family History (Last Updated 12/26/17 @ 15:17 by Ginna Phillips) Aunt Asthma Father Heart disease Hypertension CVA (cerebral vascular accident) Uncle Diabetes Grandmother CVA (cerebral vascular accident) History Items: No pertinent history Paternal Family History: Family History (Last Updated 12/26/17 @ 15:17 by Ginna Phillips) Aunt Asthma Father Heart disease Hypertension CVA (cerebral vascular accident) Uncle Diabetes Grandmother CVA (cerebral vascular accident) History Items: No pertinent history Review of Systems Constitutional: Reports: Chills, Malaise, Weakness, Fatigue HEENT: Denies: Head Aches, Sinus Congestion, Sinus Drainage Cardiovascular: Denies: Chest Pain, Palpitations Respiratory: Denies: Cough, Shortness of breath at rest, Sputum production Gastrointestinal: Reports: Abdominal Pain, Diarrhea. Denies: Hematemesis, Hematochezia, Nausea, Vomiting Genitourinary: Denies: Dysuria Musculoskeletal: Denies: Joint Pain, Joint Tenderness Skin: Denies: Rash, Wounds Neurological: Denies: Numbness, Tingling, Focal weakness Psychiatric: Denies: Anxiety, Depression, Homicidal Ideations, Suicidal Ideations Hematologic/ Lymphatic: Denies: Easy Bruising, Easy Bleeding Patient Problems: Active and Suspected Problems (Last Updated 12/26/17 @ 15:16 by Ginna Phillips) Diverticulitis large intestine (Acute) C. difficile colitis (Acute) - Physical Exam General: Alert, Oriented x3, Cooperative HEENT: Atraumatic, PERRLA, EOMI, Normocephalic Neck: Supple, No JVD, Negative Carotid Bruits Lungs: Diminished - Air entry diffuse diminished bilaterally, Rhonchi - Fine expiratory rhonchi Cardiovascular: Regular rate, Regular Rhythm, Normal S1, Normal S2, No murmurs Abdomen: Bowel Sounds Present, Soft, Non-Distended, Hypoactive Bowel Sounds, Tender - Mild diffuse tenderness. Extremities: No edema, Capillary Refill Less than 3 Seconds Skin: No rashes, No breakdown Musculoskeletal: No Tenderness to Palpation of Joints or Extremities Neurological: Cranial nerves II-XII grossly intact Psych/Mental Status: Normal Affect, Appropriate Vital Signs Temp Pulse Resp BP Pulse Ox 98.1 F 86 16 137/62 H 97 02/22/18 10:23 02/22/18 10:23 02/22/18 10:23 02/22/18 10:23 02/22/18 10:23 Oxygen Flow Rate (L/min) 2 Oxygen Delivery Method Room Air Weight: 132 lb 7.965 oz Body Mass Index (BMI) 24.4 Finger Stick Blood Glucose 89 Intake and Output for Last 24 Hours 02/20/18 02/21/18 02/22/18 23:59 23:59 23:59 Intake Total 2591.2 / 2591.2 2023 / 2023 560 / 560 Output Total 1051 / 1051 2120 / 2120 500 / 500 Balance 1540.2 / 1540.2 -96 / -96 60 / 60 Microbiology Past 72 Hours 02/22/18 09:47 C. difficile DNA Amplification - Final Stool Toxigenic C. difficile DNA Laboratory Tests Past 24 Hrs 02/21/18 02/22/18 02/22/18 14:35 06:23 06:23 WBC 7.8 RBC 3.16 L Hgb 9.2 L Hct 29.0 L MCV 91.8 MCH 29.1 MCHC 31.7 L RDW 14.9 H RDW Differential 48.2 H Plt Count 201 MPV 9.7 Sodium 140 Potassium 3.9 3.8 Chloride 105 Carbon Dioxide 31.0 Anion Gap 4 L BUN 11 Creatinine 0.88 Estim Creat Clear Calc 50.02 Est GFR (MDRD) Af Amer 84 Est GFR (MDRD) Non-Af 69 BUN/Creatinine Ratio 12.6 Glucose 96 Calcium 8.0 L Urine Color Urine Clarity Urine pH Ur Specific [place] Urine Protein Urine Glucose (UA) Urine Ketones Urine Occult Blood Urine Nitrite Urine Bilirubin Urine Urobilinogen Ur Leukocyte Esterase Urine RBC Urine WBC Ur Squamous Epith Cells Urine Bacteria Urine Mucus 02/22/18 08:30 WBC RBC Hgb Hct MCV MCH MCHC RDW RDW Differential Plt Count MPV Sodium Potassium Chloride Carbon Dioxide Anion Gap BUN Creatinine Estim Creat Clear Calc Est GFR (MDRD) Af Amer Est GFR (MDRD) Non-Af BUN/Creatinine Ratio Glucose Calcium Urine Color Yellow Urine Clarity Sl. Cloudy Urine pH 8.0 Ur Specific [place] 1.010 Urine Protein 15 H Urine Glucose (UA) Normal Urine Ketones Negative Urine Occult Blood 50 H Urine Nitrite Negative Urine Bilirubin Negative Urine Urobilinogen Normal Ur Leukocyte Esterase Negative Urine RBC 0 SEEN Urine WBC 0 SEEN Ur Squamous Epith Cells 0 SEEN Urine Bacteria 0 SEEN Urine Mucus 0 SEEN Assessment/Plan All Active Problems (Last Updated 12/26/17 @ 15:16 by Ginna Phillips) Ovarian cyst (Acute) Diverticulitis large intestine (Acute) C. difficile colitis (Acute) Diverticulosis (Acute) Acute colitis (Acute) The patient is a 62 year old F who was admitted for electively for evaluation of ovarian cyst and diverticulitis. She was found to have instance of diverticulitis coincide with ovarian cyst and felt to be right tubo-ovarian abscess related to diverticulitis. She had diverticulitis of large intestine 9 with perforation and abscess without bleeding. After medical clearance, she had laparoscopic sigmoid colectomy by Dr. Santiago and right salpingo-oophorectomy by Dr. Tejeda. She has diarrhea, loose bowel movement since and yesterday was almost every hour or 2, low volume as per the patient. Today she had 3 bowel movements. She was found to have C. difficile positive. Hospitalist team was consulted for management of C. difficile colitis. [] She has mild soreness of abdomen expected from laparoscopic surgery. Temperature 99.8 Fahrenheit. No hypotension, tachypnea or hypoxia. Of note, she had PFT which shows moderately severe obstructive lung disease, FVC 66% of predicted and FEV1 57%. 1. 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 difficile colitis earlier about 3 months ago. I think this is a recurrent, not relapse. She is on vancomycin 125 mg p.o. every 6 hourly. I will add Flagyl 500 mg q. 8 hourly for 2-3 days to control diarrhea. Volume resuscitation as needed. Probiotic. 2. Right tubo-ovarian complicated with diverticulitis status post laparoscopic sigmoid colectomy and right salpingo-oophorectomy: Postop day 3. Patient has expected mild soreness of abdomen otherwise is doing good. Surgical management as per Dr. Tejeda and Dr. Santiago 3. 3. Acute hypoxic respiratory failure with history of baseline moderately severe COPD: Patient said she quit smoking about 2-3 years ago. Currently she is not on oxygen therefore resolved. 4. Acute kidney injury, prerenal, most probably intravascular volume loss/postsurgical acute blood loss anemia: Resolved. 5. Acute blood loss anemia most likely postsurgical: Patient had hemoglobin 12.6 is dropped to 7.6 and then had PRBC transfusion. Currently H&H 9.2/29. 6. Diabetes mellitus type 2: Accu-Chek's before meals and at bedtime and cover with Humalog sliding scale. Other comorbidities include fibromyalgia, osteoporosis, lupus and history of cerebral aneurysm clipping. Multiple comorbidities complicates the present care and expect difficult and delay recovery This note was generated with [employer] dictation software. Every effort was made to ensure accuracy, however computerized spa consultant mistakes may persist. Code Visit Inpatient E&M: 37095 Init Hosp L2
[2018-02-22 13:59] VITALS: O2SAT 96
[2018-02-22 14:37] VITALS: BP 137/65; PULSE 86; RESP 16; TEMP 36.7; O2SAT 96
[2018-02-22 16:25] LABS: Bedside Glucose 100 mg/dL (70-110)
[2018-02-22 20:47] VITALS: BP 131/74; PULSE 68; RESP 16; TEMP 37.2; O2SAT 96
[2018-02-22] MEDS: Atorvastatin Calcium 40 MG Tablet PO (20:53)
[2018-02-22] MEDS: PARoxetine 10 MG Tablet 20 MG PO (20:53)
[2018-02-22] MEDS: diazePAM 5 MG Tablet 10 MG PO (20:54)
[2018-02-22 21:06] LABS: Bedside Glucose 109 mg/dL (70-110)
--- NOTE | 2018-02-23 06:04 | PN.SURG_ITS ---
<Brady Santiago - Last Filed: 02/23/18 06:01> Patient Problems: Active and Suspected Problems (Last Updated 12/26/17 @ 15:16 by Ginna Phillips) Diverticulitis large intestine (Acute) C. difficile colitis (Acute) Subjective: Pt without complaint Tolerated regular diet Stool not much of an issue - Physical Exam General: Alert, Oriented x3, Cooperative, No apparent distress Lungs: Clear to auscultation Abdomen: Bowel Sounds Present, Soft, Non Tender Vital Signs Temp Pulse Resp BP Pulse Ox 98.9 F 68 16 131/74 H 96 02/22/18 20:47 02/22/18 20:47 02/22/18 20:47 02/22/18 20:47 02/22/18 20:47 Oxygen Flow Rate (L/min) 2 Oxygen Delivery Method Room Air Weight: 132 lb 7.965 oz Body Mass Index (BMI) 24.4 Finger Stick Blood Glucose 89 Intake and Output for Last 24 Hours 02/21/18 02/22/18 02/23/18 23:59 23:59 23:59 Intake Total 2023 / 2023 1558 / 1558 Output Total 0 / 2120 900 / 900 Balance -96 / -96 658 / 658 Microbiology Past 72 Hours 02/22/18 09:47 C. difficile DNA Amplification - Final Stool Toxigenic C. difficile DNA Laboratory Tests Past 24 Hrs 02/22/18 02/22/18 02/22/18 06:23 06:23 08:30 WBC 7.8 RBC 3.16 L Hgb 9.2 L Hct 29.0 L MCV 91.8 MCH 29.1 MCHC 31.7 L RDW 14.9 H RDW Differential 48.2 H Plt Count 201 MPV 9.7 Sodium 140 Potassium 3.8 Chloride 105 Carbon Dioxide 31.0 Anion Gap 4 L BUN 11 Creatinine 0.88 Estim Creat Clear Calc 50.02 Est GFR (MDRD) Af Amer 84 Est GFR (MDRD) Non-Af 69 BUN/Creatinine Ratio 12.6 Glucose 96 Calcium 8.0 L Urine Color Yellow Urine Clarity Sl. Cloudy Urine pH 8.0 Ur Specific [place] 1.010 Urine Protein 15 H Urine Glucose (UA) Normal Urine Ketones Negative Urine Occult Blood 50 H Urine Nitrite Negative Urine Bilirubin Negative Urine Urobilinogen Normal Ur Leukocyte Esterase Negative Urine RBC 0 SEEN Urine WBC 0 SEEN Ur Squamous Epith Cells 0 SEEN Urine Bacteria 0 SEEN Urine Mucus 0 SEEN POC Glucose 02/22/18 02/22/18 20:52 16:21 POC Glucose 109 100 Medical Necessity - Tobacco Use Smoking Status: Former smoker Assessment/Plan All Active Problems (Last Updated 12/26/17 @ 15:16 by Ginna Phillips) Ovarian cyst (Acute) Diverticulitis large intestine (Acute) C. difficile colitis (Acute) Diverticulosis (Acute) Acute colitis (Acute) Hospital policy has pt stuck in her room which unfortunately is counter productive to her post op recovery. She is at further risk for DVT and pulmonary atelectasis and general debility Will aggressively work toward discharge today so pt can be free to mobilize <Naomy Ramsay - Last Filed: 02/23/18 09:03> - Physical Exam Vital Signs Temp Pulse Resp BP Pulse Ox 98.8 F 74 16 151/69 H 98 02/23/18 08:42 02/23/18 08:44 02/23/18 08:44 02/23/18 08:42 02/23/18 08:42 Oxygen Flow Rate (L/min) 2 Oxygen Delivery Method Room Air Weight: 132 lb 7.965 oz Body Mass Index (BMI) 24.4 Finger Stick Blood Glucose 89 Intake and Output for Last 24 Hours 02/21/18 02/22/18 02/23/18 23:59 23:59 23:59 Intake Total 2023 / 2023 1558 / 1558 438 / 438 Output Total 0 / 2120 900 / 900 450 / 450 Balance -96 / -96 658 / 658 -12 / -12 Microbiology Past 72 Hours 02/22/18 09:47 C. difficile DNA Amplification - Final Stool Toxigenic C. difficile DNA Laboratory Tests Past 24 Hrs 02/22/18 02/23/18 02/23/18 08:30 06:08 06:08 WBC 6.7 RBC 3.49 L Hgb 10.1 L Hct 31.9 L MCV 91.4 MCH 28.9 MCHC 31.7 L RDW 14.8 H RDW Differential 47.5 H Plt Count 242 MPV 10.0 Immature Gran % (Auto) 0.200 Neut % (Auto) 61.4 Lymph % (Auto) 23.6 [place] % (Auto) 8.1 Eos % (Auto) 6.5 H Baso % (Auto) 0.2 Absolute Neuts (auto) 4.1 Absolute Lymphs (auto) 1.57 Total Counted Not Reportable Sodium 144 Potassium 4.0 Chloride 107 Carbon Dioxide 27.0 Anion Gap 10 BUN 15 Creatinine 0.84 Estim Creat Clear Calc 52.40 Est GFR (MDRD) Af Amer 88 Est GFR (MDRD) Non-Af 73 BUN/Creatinine Ratio 17.9 Glucose 93 Hemoglobin A1c Calcium 8.7 Urine Color Yellow Urine Clarity Sl. Cloudy Urine pH 8.0 Ur Specific [place] 1.010 Urine Protein 15 H Urine Glucose (UA) Normal Urine Ketones Negative Urine Occult Blood 50 H Urine Nitrite Negative Urine Bilirubin Negative Urine Urobilinogen Normal Ur Leukocyte Esterase Negative Urine RBC 0 SEEN Urine WBC 0 SEEN Ur Squamous Epith Cells 0 SEEN Urine Bacteria 0 SEEN Urine Mucus 0 SEEN 02/23/18 06:08 WBC RBC Hgb Hct MCV MCH MCHC RDW RDW Differential Plt Count MPV Immature Gran % (Auto) Neut % (Auto) Lymph % (Auto) [place] % (Auto) Eos % (Auto) Baso % (Auto) Absolute Neuts (auto) Absolute Lymphs (auto) Total Counted Sodium Potassium Chloride Carbon Dioxide Anion Gap BUN Creatinine Estim Creat Clear Calc Est GFR (MDRD) Af Amer Est GFR (MDRD) Non-Af BUN/Creatinine Ratio Glucose Hemoglobin A1c 5.5 Calcium Urine Color Urine Clarity Urine pH Ur Specific [place] Urine Protein Urine Glucose (UA) Urine Ketones Urine Occult Blood Urine Nitrite Urine Bilirubin Urine Urobilinogen Ur Leukocyte Esterase Urine RBC Urine WBC Ur Squamous Epith Cells Urine Bacteria Urine Mucus POC Glucose 02/23/18 02/22/18 02/22/18 06:14 20:52 16:21 POC Glucose 95 109 100 Assessment/Plan Plan for discharge hopefully today with home oral antibiotics for C Diff according to infectious disease. Follow-up in [address] Santiago.
[2018-02-23] MEDS: Acetaminophen 500 MG Tablet 1000 MG PO (06:09)
[2018-02-23] MEDS: Enoxaparin 40 MG/0.4 ML Syringe SC (06:10)
[2018-02-23 06:23] VITALS: BP 159/73; PULSE 62; RESP 18; TEMP 36.6; O2SAT 96
[2018-02-23 06:36] LABS: Bedside Glucose 95 mg/dL (70-110)
[2018-02-23 07:28] VITALS: O2SAT 95
[2018-02-23 07:49] LABS: Anion Gap 10 (5-15); BUN 15 mg/dL (7-18); BUN/Creat Ratio 17.9 RATIO (10-20); Calcium,Total 8.7 mg/dL (8.5-10.1); Chloride 107 mmol/L (98-107); Creatinine, Serum 0.84 mg/dL (0.55-1.02); EST Glomerular Filtration Rate 73 mL/min (>60); Est Glom Filt Rate - Afr Amer 88 mL/min (>60); Glucose 93 mg/dL (74-106); Sodium Level 144 mmol/L (136-145)
[2018-02-23 07:52] LABS: Absolute Lymphocyte Count 1.57 X10^3/ul (0.83-4.51); Absolute Neutrophil Count 4.1 X10^3/uL (2.0-7.7); Basophil# 0.01 X10^3/uL; Basophil% 0.2 % (0-1); Eosinophil# 0.43 X10^3/uL; Eosinophils% 6.5 % (0-5); Hematocrit 31.9 % (37-47); Hemoglobin 10.1 g/dl (12.0-15.0); Lymphocyte # 1.57 X10^3/ul (4.0); Lymphocyte % 23.6 % (19-41); Mean Corp Hgb Conc 31.7 g/gl (32-36); Mean Corpuscular Hgb 28.9 pg (27.0-32.0); Mean Corpuscular Volume 91.4 fL (81-99); Monocyte# 0.54 X10^3/uL; Monocyte% 8.1 % (0-10); Neutrophil # 4.09 X10^3/uL (2.7-7.7); Neutrophil % 61.4 % (47-70); Platelet Count 242 K/mm3 (150-450); RBC Distribution Width CV 14.8 % (11.6-14.6); RBC Distribution Width SD 47.5 fl (35.1-43.9); Red Blood Count 3.49 M/mm3 (4.2-5.4); White Blood Count 6.7 K/mm3 (4.4-11.0)
[2018-02-23 08:07] LABS: POSITIVE COUNT NO; POSITIVE DIFFERENTIAL NO; POSITIVE MORPHOLOGY NO
[2018-02-23 08:12] LABS: Hemoglobin A1c 5.5 % (4.2-6.3)
[2018-02-23 08:42] VITALS: BP 151/69; PULSE 74; RESP 16; TEMP 37.1; O2SAT 98
[2018-02-23 08:44] VITALS: PULSE 74; RESP 16
[2018-02-23] MEDS: levETIRAcetam 500 MG Tablet PO (09:25)
[2018-02-23] MEDS: Aspirin 81 MG TAB.CHEW PO (09:25)
[2018-02-23] MEDS: Gabapentin 300 MG Capsule PO (09:25)
[2018-02-23] MEDS: Baclofen 10 MG Tablet PO (09:25)
[2018-02-23] MEDS: Pantoprazole Sodium 20 MG Tablet PO (09:25)
[2018-02-23] MEDS: OLANZapine 2.5 MG Tablet PO (09:25)
--- NOTE | 2018-02-23 10:11 | PN_ITS ---
Subjective: Patient diarrhea is controlled. Denies abdominal pain. Tolerating diet. Plan for discharge today Vitals/I&O's: Vital Signs Temp Pulse Resp BP Pulse Ox 98.8 F 74 16 151/69 H 98 02/23/18 08:42 02/23/18 08:44 02/23/18 08:44 02/23/18 08:42 02/23/18 08:42 Oxygen Flow Rate (L/min) 2 Oxygen Delivery Method Room Air Weight: 132 lb 7.965 oz Body Mass Index (BMI) 24.4 Finger Stick Blood Glucose 89 Intake and Output for Last 24 Hours 02/21/18 02/22/18 02/23/18 23:59 23:59 23:59 Intake Total 2023 / 2023 1558 / 1558 438 / 438 Output Total 2119 / 2119 900 / 900 450 / 450 Balance -96 / -96 658 / 658 -12 / -12 General: Alert, Oriented x3, Cooperative HEENT: Atraumatic, PERRLA, EOMI, Normocephalic Oral: Moist Mucosa, No Gingival or Mucosal Lesions/ Ulcerations Neck: Supple, No JVD, Negative Carotid Bruits Lungs: Clear to auscultation, Normal air movement, No rhonchi, No wheeze, No rales Cardiovascular: Regular rate, Regular Rhythm, Normal S1, Normal S2, No murmurs Abdomen: Bowel Sounds Present, Soft, Non Tender, Non-Distended Extremities: No edema, Capillary Refill Less than 3 Seconds Skin: No rashes, No breakdown, - - Surgical port is dry. Musculoskeletal: No Tenderness to Palpation of Joints or Extremities, Arthritic Changes Neurological: Cranial nerves II-XII grossly intact, Neuro grossly intact Psych/Mental Status: Normal Affect, Appropriate Microbiology Past 72 Hours 02/22/18 09:47 Stool C. difficile DNA Amplification - Final Toxigenic C. difficile DNA Laboratory Results 02/22/18 16:21: POC Glucose 100 02/22/18 20:52: POC Glucose 109 02/23/18 06:08: WBC 6.7, RBC 3.49 L, Hgb 10.1 L, Hct 31.9 L, MCV 91.4, MCH 28.9, MCHC 31.7 L, RDW 14.8 H, RDW Differential 47.5 H, Plt Count 242, MPV 10.0, Immature Gran % (Auto) 0.200, Neut % (Auto) 61.4, Lymph % (Auto) 23.6, [place] % (Auto) 8.1, Eos % (Auto) 6.5 H, Baso % (Auto) 0.2, Absolute Neuts (auto) 4.1, Absolute Lymphs (auto) 1.57, Total Counted Not Reportable 02/23/18 06:08: Sodium 144, Potassium 4.0, Chloride 107, Carbon Dioxide 27.0, Anion Gap 10, BUN 15, Creatinine 0.84, Estim Creat Clear Calc 52.40, Est GFR (MDRD) Af Amer 88, Est GFR (MDRD) Non-Af 73, BUN/Creatinine Ratio 17.9, Glucose 93, Calcium 8.7 02/23/18 06:08: Hemoglobin A1c 5.5 02/23/18 06:14: POC Glucose 95 Current Medications Acetaminophen (Tylenol) 1,000 mg PO Q6 [facility] Last Admin: 02/23/18 06:09 Dose: 1,000 mg Albuterol Sulfate (Ventolin Aerosols) 2.5 mg INHALATION Q4H PRN PRN PRN Reason: SOB &/OR WHEEZING Aspirin (Aspirin, Baby) 81 mg PO DAILY@0800 [facility] Last Admin: 02/23/18 09:25 Dose: 81 mg Atorvastatin Calcium (Lipitor) 40 mg PO QHS [facility] Last Admin: 02/22/18 20:53 Dose: 40 mg [facility] Admin: 02/23/18 09:25 Dose: 10 mg Dextrose (D50w Syringe) 0 gm IV X1 PRN; Protocol PRN Reason: Hypoglycemia Diazepam (Valium) 10 mg PO QHS [facility] Last Admin: 02/22/18 20:54 Dose: 10 mg Enoxaparin Sodium (Lovenox) 40 mg SC DAILY@0600 [facility] Last Admin: 02/23/18 06:10 Dose: 40 mg Gabapentin ([facility]urontin) [facility] Last Admin: 02/23/18 09:25 Dose: 300 mg Glucagon () 1 mg IM .X1 PRN PRN Reason: Hypoglycemia Hydromorphone HCl (Dilaudid Inj) 0.5 mg IV Q3H PRN PRN PRN Reason: SEVERE PAIN (6-10/10) Last Admin: 02/20/18 09:28 Dose: 0.5 mg Sodium Chloride () 250 mls @ 15 mls/hr IV .[id number] PRN PRN Reason: SALINE FLUSH Last Admin: 02/21/18 08:00 Dose: 15 mls/hr Metronidazole (Flagyl) 500 mg in 100 mls @ 100 mls/hr IV Q8 [facility] Stop: 02/24/18 16:46 Last Admin: 02/23/18 06:09 Dose: 100 mls/hr Insulin Human Lispro (Humalog Kwikpen (Bkc)) 0 unit SQ ACHS [facility]; Protocol Last Admin: 02/23/18 06:36 Dose: Not Given Lactobacillus Acidophilus (Acidophilus) 1 tablet PO TID [facility] Last Admin: 02/23/18 06:09 Dose: 1 tablet Levetiracetam (Keppra Tablet) 500 mg PO DAILY [facility] Last Admin: 02/23/18 09:25 Dose: 500 mg Magnesium Oxide (Mag-Ox 400) 400 mg PO DAILY PRN PRN PRN Reason: Constipation Nicotine (Nicoderm Cq (Pbkc)) 14 mg TRANSDERM. DAILY [facility] Last Admin: 02/23/18 09:25 Dose: 14 mg Olanzapine (Zyprexa) 2.5 mg PO DAILY [facility] Last Admin: 02/23/18 09:25 Dose: 2.5 mg Ondansetron HCl (Zofran Odt) 4 mg PO Q6H PRN PRN PRN Reason: NAUSEA Oxycodone HCl (Oxyir) 5 - 10 mg PO Q4H PRN PRN PRN Reason: MOD-SEVERE PAIN (4-10/10) Last Admin: 02/22/18 04:27 Dose: 5 mg Pantoprazole Sodium (Protonix) 20 mg PO DAILY [facility] Last Admin: 02/23/18 09:25 Dose: 20 mg Paroxetine HCl (Paxil) 20 mg PO QHS [facility] Last Admin: 02/22/18 20:53 Dose: 20 mg Sodium Chloride () 5 - 30 ml IV UD PRN PRN Reason: SALINE FLUSH Last Admin: 02/22/18 04:26 Dose: 10 ml Vancomycin HCl () 125 mg PO Q6 [facility] Last Admin: 02/23/18 06:10 Dose: 125 mg Medical Necessity - Tobacco Use Smoking Status: Former smoker Assessment/Plan All Active Problems (Last Updated 12/26/17 @ 15:16 by Ginna Phillips) Ovarian cyst (Acute) Diverticulitis large intestine (Acute) C. difficile colitis (Acute) Diverticulosis (Acute) Acute colitis (Acute) The patient is a 62 year old F who was admitted for electively for evaluation of ovarian cyst and diverticulitis. She was found to have instance of diverticulitis coincide with ovarian cyst and felt to be right tubo-ovarian abscess related to diverticulitis. She had diverticulitis of large intestine 9 with perforation and abscess without bleeding. After medical clearance, she had laparoscopic sigmoid colectomy by Dr. Santiago and right salpingo-oophorectomy by Dr. Tejeda. She has diarrhea, loose bowel movement since and yesterday was almost every hour or 2, low volume as per the patient. She was found to have C. difficile positive. Hospitalist team was consulted for management of C. difficile colitis. [] She has mild soreness of abdomen expected from laparoscopic surgery. Temperature 99.8 Fahrenheit. No hypotension, tachypnea or hypoxia. Of note, she had PFT which shows moderately severe obstructive lung disease, FVC 66% of predicted and FEV1 57%. 1. 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 difficile colitis earlier about 3 months ago. I think this is a recurrent, not relapse. She is on vancomycin 125 mg p.o. every 6 hourly. Flagyl 500 mg q. 8 hourly for 3 days to control diarrhea. The patient is discharged on vancomycin 125 4 times daily for 2 weeks and Flagyl 500 mg 3 times daily for 2 more days. Prescription sent to the pharmacy 2. Right tubo-ovarian complicated with diverticulitis status post laparoscopic sigmoid colectomy and right salpingo-oophorectomy: Postop day 3. Patient has expected mild soreness of abdomen otherwise is doing good. Surgical management as per Dr. Tejeda and Dr. Santiago. Follow-up Dr. Stacy and Dr. Santiago as a scheduled. 3. Acute hypoxic respiratory failure with history of baseline moderately severe COPD: Patient said she quit smoking about 2-3 years ago. Currently she is not on oxygen therefore resolved. 4. Acute kidney injury, prerenal, most probably intravascular volume loss/postsurgical acute blood loss anemia: Resolved. 5. Acute blood loss anemia most likely postsurgical: Patient had hemoglobin 12.6 is dropped to 7.6 and then had PRBC transfusion. Today H&H 10.1/31.9. 6. Diabetes mellitus type 2: Accu-Chek's before meals and at bedtime and cover with Humalog sliding scale. Other comorbidities include fibromyalgia, osteoporosis, lupus and history of cerebral aneurysm clipping. Multiple comorbidities complicates the present care and expect difficult and delay recovery. The patient is being discharged home. Medication of C. difficile was r econciled. Follow with PCP in 2 weeks. Hospitalist team will sign off. Microbiology Past 72 Hours 02/22/18 09:47 Stool C. difficile DNA Amplification - Final Toxigenic C. difficile DNA Laboratory Results 02/22/18 16:21: POC Glucose 100 02/22/18 20:52: POC Glucose 109 02/23/18 06:08: WBC 6.7, RBC 3.49 L, Hgb 10.1 L, Hct 31.9 L, MCV 91.4, MCH 28.9, MCHC 31.7 L, RDW 14.8 H, RDW Differential 47.5 H, Plt Count 242, MPV 10.0, Immature Gran % (Auto) 0.200, Neut % (Auto) 61.4, Lymph % (Auto) 23.6, [place] % (Auto) 8.1, Eos % (Auto) 6.5 H, Baso % (Auto) 0.2, Absolute Neuts (auto) 4.1, Absolute Lymphs (auto) 1.57, Total Counted Not Reportable 02/23/18 06:08: Sodium 144, Potassium 4.0, Chloride 107, Carbon Dioxide 27.0, Anion Gap 10, BUN 15, Creatinine 0.84, Estim Creat Clear Calc 52.40, Est GFR (MDRD) Af Amer 88, Est GFR (MDRD) Non-Af 73, BUN/Creatinine Ratio 17.9, Glucose 93, Calcium 8.7 02/23/18 06:08: Hemoglobin A1c 5.5 02/23/18 06:14: POC Glucose 95 02/23/18 11:59: POC Glucose 105 Code Visit Inpatient E&M: 46046 Subs Hosp L3
--- NOTE | 2018-02-23 11:20 | DCINST_ITS ---
Discharge Diet: Light diet - advance as tolerated Discharge Activity: May not drive while taking narcotic pain medications. May shower in (days): 1 Lifting Restrictions: 10 pounds Call your doctor if your incision/area has: Continuous Slow Oozing, Sudden Increased Bleeding, Increased Pain/ Swelling, Increased Redness, Foul Smelling Discharge, Swelling at the incision site Call your doctor if you observe: Fever of 101 or Higher, Coldness, Increased Pain Suture Line Care: Avoid Pulling/Pushing, Avoid Pinching/Bending Change Dressing in (Days):: 1 - Leave steri-strips in place for 1 week. Cleanse incision/area with: Soap & Water Allergies/Adverse Reactions: Allergies celecoxib [From Celebrex] Allergy (Verified 01/29/18 09:22) Swelling fluoxetine Allergy (Verified 01/29/18 09:22) Unknown hydrocodone Allergy (Verified 01/29/18 09:22) Unknown pneumococcal 23-valent polysacchari [From Pneumovax 23] Allergy (Verified 01/29/18 09:22) Unknown pneumococcal vaccine [Pneumococcal Vaccine] Allergy (Verified 01/29/18 09:22) Rash ranitidine Allergy (Verified 01/29/18 09:22) Unknown rofecoxib Allergy (Verified 01/29/18 09:22) Unknown valdecoxib Allergy (Verified 01/29/18 09:22) Unknown bee stings Allergy (Severe, Uncoded 01/29/18 09:22) septic Medications to take at Discharge Albuterol Inhaler [Ventolin Hfa] 1 - 2 puff INHALATION Q6H PRN PRN 03/22/14 Baclofen 10 mg PO DAILY 03/22/14 Diaplex 2 cap PO BID 03/22/14 Diazepam [Valium] 10 mg PO QHS 03/22/14 Aspirin [Aspirin, Baby] 81 mg PO DAILY@0800 #90 tab.chew 03/24/14 Atorvastatin Calcium [Lipitor] 40 mg PO QHS #90 tab 03/24/14 budesonide-formoterol HFA 160 mcg-4.5 mcg/actuation aerosol inhaler 1 puff INHALATION DAILY 12/26/17 ergocalciferol (vitamin D2) 50,000 unit capsule 50,000 unit PO LOPEZ cap 12/26/17 gabapentin 300 mg capsule 300 mg PO DAILY 12/26/17 levetiracetam 500 mg tablet 500 mg PO DAILY tab 12/26/17 olanzapine 2.5 mg tablet 2.5 mg PO DAILY 12/26/17 paroxetine 10 mg tablet 20 mg PO QHS tab 12/26/17 Metronidazole [Flagyl] 500 mg PO Q8H #6 tablet 02/23/18 Oxycodone [Oxyir] 5 mg PO Q6H PRN PRN 3 Days #10 tablet 02/23/18 Vancomycin [Vancocin] 125 mg PO Q6H 14 Days #56 capsule 02/23/18 The following prescriptions were given: Oxycodone [Oxyir] 5 mg PO Q6H PRN PRN 3 Days #10 tablet PRN Reason: Mod-Severe Pain (4-02/11) Metronidazole [Flagyl] 500 mg PO Q8H #6 tablet Vancomycin [Vancocin] 125 mg PO Q6H 14 Days #56 capsule Primary Care Physician: Kellen Jean DO [Primary Care Provider] - Test Results: Test results from this visit will be discussed in further detail at your follow- up appointment, if applicable. Please Follow Up With: Brady Santiago MD - [phone] When: 10 days Proposed Discharge Date: 02/23/18
[2018-02-23 11:51] VITALS: BP 147/76; PULSE 81; RESP 16; TEMP 36.9
[2018-02-23 12:05] LABS: Bedside Glucose 105 mg/dL (70-110)
--- NOTE | 2018-02-24 15:58 | CASEMGMT ---
[facility] Discharge Follow-up Phone Call: MARIA L: Verna Strata: 3 Call Date: 02/24/18 Discharge Date: 02/23/18 Time of Call: 1558 Duration: 1 min Admitting Diagnosis: Laparoscopic Ovarian cystectomy [facility] attempted to complete follow-up phone call after recent hospitalization. No answer, voice message left with return contact information.
--- NOTE | 2018-02-26 16:23 | PCM.DC.SUM ---
Discharge Date and Diagnosis Date of Admission: 02/19/18 Date of Discharge: 02/23/18 - Primary Discharge Diagnosis Right ovarian abscess Diverticulosis - Secondary Discharge Diagnosis Chronic Problems (Last Updated 12/26/17 @ 15:16 by Ginna Phillips) Type II diabetes mellitus (Chronic) Fibromyalgia (Chronic) Tobacco dependence syndrome (Chronic) Osteoporosis (Chronic) Lupus erythematosus (Chronic) COPD (chronic obstructive pulmonary disease) (Chronic) History of cerebral aneurysm repair (Chronic) Status post clipping Hospital Course and Treatment Operations: - - laparoscopic sigmoid colectomy and right salpingo-oophorectomy per Dr. Aspen Stacy Summary of Care Provided: The patient is a 62 year old F with a right ovarian cyst and history of diverticulitis. Dr. Santiago performed a sigmoid colectomy and right salpingo-oophorectomy per Dr. Aspen Stacy on 02/19/18. Patient tolerated the procedure well. Patient was transferred post-op to the ICU intubated. She was extubated the following day. Patient was transfused 1 unit of PRBC secondary to low Hgb. Patient was transferred to regular floor on 02/21. Patient was tested for C Diff on 02/22. Patient had car shifter, ENVIRONMENTAL SERVICES AIDE, hospitalist and surgery on her case throughout her hospitalization. Upon discharge, she noted very minimal amount of abdominal discomfort. She denies nausea, vomiting, fever. She is tolerating a regular diet well. Her Hgb was 10.1. She discharged to home on oral antibiotics for C Diff. - Physical Exam General: Alert, Oriented x3, Cooperative HEENT: Atraumatic, PERRLA, EOMI, Normocephalic Neck: Supple, No JVD, Negative Carotid Bruits Lungs: Clear to auscultation, Normal air movement Cardiovascular: Regular rate, No murmurs Abdomen: Bowel Sounds Present, Soft, Distended - slightly, - - Incisions c/d/i. No erythema or infection noted Extremities: No edema, Capillary Refill Less than 3 Seconds Skin: No rashes, No breakdown Musculoskeletal: No Tenderness to Palpation of Joints or Extremities Neurological: Cranial nerves II-XII grossly intact Psych/Mental Status: Appropriate Vital Signs Temp Pulse Resp BP Pulse Ox 98.4 F 81 16 147/76 H 98 02/23/18 11:51 02/23/18 11:51 02/23/18 11:51 02/23/18 11:51 02/23/18 08:42 Oxygen Flow Rate (L/min) 2 Oxygen Delivery Method Room Air Weight: 132 lb 7.965 oz Body Mass Index (BMI) 24.4 Finger Stick Blood Glucose 89 Discharge Diet: Light diet - advance as tolerated Discharge Activity: May not drive while taking narcotic pain medications. May shower in (days): 1 Call your doctor if your incision/area has: Continuous Slow Oozing, Sudden Increased Bleeding, Increased Pain/ Swelling, Increased Redness, Foul Smelling Discharge, Swelling at the incision site Call your doctor if you observe: Fever of 101 or Higher, Coldness, Increased Pain Suture Line Care: Avoid Pulling/Pushing, Avoid Pinching/Bending Change Dressing in (Days):: 1 - Leave steri-strips in place for 1 week. Cleanse incision/area with: Soap & Water Home Medications: Medications to take at Discharge Albuterol Inhaler [Ventolin Hfa] 1 - 2 puff INHALATION Q6H PRN PRN 03/22/14 Baclofen 10 mg PO DAILY 03/22/14 Diaplex 2 cap PO BID 03/22/14 Diazepam [Valium] 10 mg PO QHS 03/22/14 Aspirin [Aspirin, Baby] 81 mg PO DAILY@0800 #90 tab.chew 03/24/14 Atorvastatin Calcium [Lipitor] 40 mg PO QHS #90 tab 03/24/14 budesonide-formoterol HFA 160 mcg-4.5 mcg/actuation aerosol inhaler 1 puff INHALATION DAILY 12/26/17 ergocalciferol (vitamin D2) 50,000 unit capsule 50,000 unit PO LOPEZ cap 12/26/17 gabapentin 300 mg capsule 300 mg PO DAILY 12/26/17 levetiracetam 500 mg tablet 500 mg PO DAILY tab 12/26/17 olanzapine 2.5 mg tablet 2.5 mg PO DAILY 12/26/17 paroxetine 10 mg tablet 20 mg PO QHS tab 12/26/17 Metronidazole [Flagyl] 500 mg PO Q8H #6 tablet 02/23/18 Vancomycin [Vancocin] 125 mg PO Q6H 14 Days #56 capsule 02/23/18 Following Prescrptions Were Given to Patient: Metronidazole [Flagyl] 500 mg PO Q8H #6 tablet Vancomycin [Vancocin] 125 mg PO Q6H 14 Days #56 capsule Primary Care Physician: Kellen Jean DO [Primary Care Provider] - Please Follow Up With: Brady Santiago MD - [phone] When: 10 days Disposition: Home Minutes spent on discharge:: 30 Patient Condition:: Good Medical Necessity - Tobacco Use Smoking Status: Former smoker Meaningful Use Info Meaningful Use Diagnoses (Choose all that apply): None applicable Code Visit Inpatient E&M: 37929 Disch Hosp
--- NOTE | 2018-02-26 16:28 | DS.PCM_ITS ---
Discharge Date and Diagnosis Date of Admission: 02/19/18 Date of Discharge: 02/23/18 - Primary Discharge Diagnosis Right ovarian abscess Diverticulosis - Secondary Discharge Diagnosis Chronic Problems (Last Updated 12/26/17 @ 15:16 by Ginna Phillips) Type II diabetes mellitus (Chronic) Fibromyalgia (Chronic) Tobacco dependence syndrome (Chronic) Osteoporosis (Chronic) Lupus erythematosus (Chronic) COPD (chronic obstructive pulmonary disease) (Chronic) History of cerebral aneurysm repair (Chronic) Status post clipping Hospital Course and Treatment Operations: - - laparoscopic sigmoid colectomy and right salpingo-oophorectomy per Dr. Aspen Stacy Summary of Care Provided: The patient is a 62 year old F with a right ovarian cyst and history of diverticulitis. Dr. Santiago performed a sigmoid colectomy and right salpingo- oophorectomy per Dr. Aspen Stacy on 02/19/18. Patient tolerated the procedure well. Patient was transferred post-op to the ICU intubated. She was extubated the following day. Patient was transfused 1 unit of PRBC secondary to low Hgb. Patient was transferred to regular floor on 02/21. Patient was tested for C Diff on 02/22. Patient had statistician mathematical, PUSHER RUNNER, hospitalist and surgery on her case throughout her hospitalization. Upon discharge, she noted very minimal amount of abdominal discomfort. She denies nausea, vomiting, fever. She is tolerating a regular diet well. Her Hgb was 10.1. She discharged to home on oral antibiotics for C Diff. - Physical Exam General: Alert, Oriented x3, Cooperative HEENT: Atraumatic, PERRLA, EOMI, Normocephalic Neck: Supple, No JVD, Negative Carotid Bruits Lungs: Clear to auscultation, Normal air movement Cardiovascular: Regular rate, No murmurs Abdomen: Bowel Sounds Present, Soft, Distended - slightly, - - Incisions c/d/i. No erythema or infection noted Extremities: No edema, Capillary Refill Less than 3 Seconds Skin: No rashes, No breakdown Musculoskeletal: No Tenderness to Palpation of Joints or Extremities Neurological: Cranial nerves II-XII grossly intact Psych/Mental Status: Appropriate Vital Signs Temp Pulse Resp BP Pulse Ox 98.4 F 81 16 147/76 H 98 02/23/18 11:51 02/23/18 11:51 02/23/18 11:51 02/23/18 11:51 02/23/18 08:42 Oxygen Flow Rate (L/min) 2 Oxygen Delivery Method Room Air Weight: 132 lb 7.965 oz Body Mass Index (BMI) 24.4 Finger Stick Blood Glucose 89 Discharge Diet: Light diet - advance as tolerated Discharge Activity: May not drive while taking narcotic pain medications. May shower in (days): 1 Call your doctor if your incision/area has: Continuous Slow Oozing, Sudden Increased Bleeding, Increased Pain/ Swelling, Increased Redness, Foul Smelling Discharge, Swelling at the incision site Call your doctor if you observe: Fever of 101 or Higher, Coldness, Increased Pain Suture Line Care: Avoid Pulling/Pushing, Avoid Pinching/Bending Change Dressing in (Days):: 1 - Leave steri-strips in place for 1 week. Cleanse incision/area with: Soap & Water Home Medications: Medications to take at Discharge Albuterol Inhaler [Ventolin Hfa] 1 - 2 puff INHALATION Q6H PRN PRN 03/22/14 Baclofen 10 mg PO DAILY 03/22/14 Diaplex 2 cap PO BID 03/22/14 Diazepam [Valium] 10 mg PO QHS 03/22/14 Aspirin [Aspirin, Baby] 81 mg PO DAILY@0800 #90 tab.chew 03/24/14 Atorvastatin Calcium [Lipitor] 40 mg PO QHS #90 tab 03/24/14 budesonide-formoterol HFA 160 mcg-4.5 mcg/actuation aerosol inhaler 1 puff INHALATION DAILY 12/26/17 ergocalciferol (vitamin D2) 50,000 unit capsule 50,000 unit PO LOPEZ cap 12/26/17 gabapentin 300 mg capsule 300 mg PO DAILY 12/26/17 levetiracetam 500 mg tablet 500 mg PO DAILY tab 12/26/17 olanzapine 2.5 mg tablet 2.5 mg PO DAILY 12/26/17 paroxetine 10 mg tablet 20 mg PO QHS tab 12/26/17 Metronidazole [Flagyl] 500 mg PO Q8H #6 tablet 02/23/18 Vancomycin [Vancocin] 125 mg PO Q6H 14 Days #56 capsule 02/23/18 Following Prescrptions Were Given to Patient: Metronidazole [Flagyl] 500 mg PO Q8H #6 tablet Vancomycin [Vancocin] 125 mg PO Q6H 14 Days #56 capsule Primary Care Physician: Kellen Jean DO [Primary Care Provider] - Please Follow Up With: Brady Santiago MD - [phone] When: 10 days Disposition: Home Minutes spent on discharge:: 30 Patient Condition:: Good Medical Necessity - Tobacco Use Smoking Status: Former smoker Meaningful Use Info Meaningful Use Diagnoses (Choose all that apply): None applicable Code Visit Inpatient E&M: 56156 Disch Hosp
== END 2018-02-23 12:43 | disposition home or self-care (01) | DRG 329 ==
LOC: MS2 17:30 → SDC 17:30 → ICU 18:52 → MS3 02-21 17:15
PROVIDERS: Internal Medicine; Internal Medicine Critical Care Medicine; Internal Medicine Infectious Disease; Surgery; Admitting Provider Obstetrics & Gynecology; Family Provider Internal Medicine; PCP Internal Medicine; Referring Provider Obstetrics & Gynecology; Visit Provider Obstetrics & Gynecology
PROC: 0UT54ZZ Resection of Right Fallopian Tube, Percutaneous Endoscopic Approach (ICD-10-PCS; principal; 2018-02-19 12:45)
DX: K57.20 Diverticulitis of large intestine with perforation and abscess without bleeding (principal); J96.01 Acute respiratory failure with hypoxia; A04.72 Enterocolitis due to Clostridium difficile, not specified as recurrent; N17.9 Acute kidney failure, unspecified; D62 Acute posthemorrhagic anemia; N70.93 Salpingitis and oophoritis, unspecified; E11.9 Type 2 diabetes mellitus without complications; J44.9 Chronic obstructive pulmonary disease, unspecified; M79.7 Fibromyalgia; M81.0 Age-related osteoporosis without current pathological fracture; L93.0 Discoid lupus erythematosus; Z87.891 Personal history of nicotine dependence
CPT/HCPCS: 36415; 36600; 71046; 80048; 81001; 82550; 82803; 82962; 83036; 84132; 84478; 85014; 85018; 85025; 85027; 86850; 86900; 86920; 87493; 88304; 88307; 94002; 94003; 94660; 95831; 97110; 97116; 97162; 97165; 97530; 97535; J7040; J7050; J7120; P9016; A4216; C1760; J1940; J2405

== ENCOUNTER → 2018-04-11 08:16 | Outpatient (CLI) | payer MEDICARE, SELFPAY ==
[2018-02-19 19:00] VITALS: BMI 24.4
--- NOTE | 2018-04-11 10:20 | LES_PTH ---
PATIENT: GLADYS LAINEZ LOC: [facility] U#:[id number] AGE/SX: 69/F ROOM: RE04/11/[address]: Dr. Brady Santiago MD : [id number] BED: DIS: SPEC #: [id number] RECD: 04/13/18 07:58 STATUS: KIANA LENNY #: [id number] GARY: 04/11/18 10:[address]: Brady Santiago DEPT: SURGICAL PATHOLOGY RECD BY: Bryan Montgomery ENTERED: 04/13/18 08:49 SP TYPE: Lesion OTHR DR: Dr. Kellen Jean, Tissues: Skin of arm Procedures: Surgery Specimen Level IV HEADER OPERATION: Excision left arm lesion PRE-OP DIAGNOSIS: Uncertain neoplasm arm TISSUE SUBMITTED: Left arm tissue MICROSCOPIC DIAGNOSIS Left arm skin lesion, excisional biopsy: Invasive well differentiated squamous cell carcinoma, keratoacanthomatous type, completely excised. Perineural invasion is not seen. SJ:trinh 04/14/18 COMMENT Case has been reviewed in consultation with Dr. Brown who concurs with the above diagnosis. IDC:AM MICROSCOPIC DESCRIPTION Slides are reviewed. GROSS DESCRIPTION Received in fixative is one container labeled with the patient's name and designated left arm. The specimen consists of an ellipse of light falcon excised skin measuring 3.5 x 1.7 and a depth of excision measuring 0.5 cm. The cutaneous surface contains a 0.6 cm cutaneous nodule. The specimen is inked, serially sectioned and totally submitted in two cassettes. Cassette #2 contains the lesion. / AM:trinh 04/13/18 TC:0 CPT: 69104
== END ==
PROVIDERS: Family Provider Internal Medicine; PCP Internal Medicine; Referring Provider Surgery; Visit Provider Surgery
DX: D48.7 Neoplasm of uncertain behavior of other specified sites (principal)
CPT/HCPCS: 88305

== ENCOUNTER → 2018-11-12 12:15 | Outpatient (CLI) | payer MEDICARE, SELFPAY ==
[2018-04-17 14:15] VITALS: BMI 24.4
[2018-11-12 13:14] LABS: ALB/GLOB Ratio 0.8 RATIO (0.9-2.4); AST(SGOT) 25 U/L (15-37); Alanine Aminotransfer ALT/SGPT 27 U/L (13-56); Albumin, Serum 3.7 g/dL (3.2-5.0); Alkaline Phosphatase 122 U/L (45-117); Anion Gap 5 (5-15); BUN 25 mg/dL (7-18); BUN/Creat Ratio 23.4 RATIO (10-20); Bilirubin, Direct < 0.05 mg/dL (0.00-0.30); Calcium,Total 9.6 mg/dL (8.5-10.1); Chloride 108 mmol/L (98-107); Creatinine, Serum 1.07 mg/dL (0.55-1.02); EST Glomerular Filtration Rate 55 mL/min (>60); Est Glom Filt Rate - Afr Amer 67 mL/min (>60); Globulin 4.6 g/dL (2.2-4.2); Glucose 95 mg/dL (74-106); Potassium 3.9 mmol/L (3.5-5.1); Protein, Total 8.3 g/dL (6.4-8.2); Sodium Level 143 mmol/L (136-145)
[2018-11-15 13:47] LABS: KEPPRA (LEVETIRACETAM) 30.1 ug/mL (10.0-40.0)
== END ==
PROVIDERS: Family Provider Internal Medicine; PCP Internal Medicine; Referring Provider Nurse Practitioner Family; Visit Provider Nurse Practitioner Family
DX: R56.9 Unspecified convulsions (principal); R19.7 Diarrhea, unspecified
CPT/HCPCS: 36415; 80053; 80177; 82248

== ENCOUNTER → 2018-11-13 06:41 | Outpatient (CLI) | payer MEDICARE, SELFPAY ==
[2018-04-17 14:15] VITALS: BMI 24.4
== END ==
PROVIDERS: Family Provider Internal Medicine; PCP Internal Medicine; Referring Provider Psychiatry & Neurology Neurology; Visit Provider Nurse Practitioner Family
DX: R19.7 Diarrhea, unspecified (principal); R56.9 Unspecified convulsions
CPT/HCPCS: 87177; 87209; 87493; 87506

== ENCOUNTER → 2018-11-24 15:21 | Outpatient (CLI) | payer MEDICARE, SELFPAY ==
[2018-04-17 14:15] VITALS: BMI 24.4
--- NOTE | 2018-11-24 16:00 | MRI_ITS ---
STUDY: MRI CERVICAL SPINE WITHOUT CONTRAST REASON FOR EXAM: Female, 63 years old. Neck pain TECHNIQUE: Standardized fat and water weighted pulse sequences were obtained in the sagittal and axial planes. COMPARISON: CT of the cervical spine January 26, 2012 FINDINGS: Normal foramen magnum and brainstem-cervical cord junction. Normal craniovertebral junction. Normal anterior atlantoaxial articulation. Normal odontoid process. Normal cervical lordosis. Normal vertebral bodies and posterior osseous elements. C2-3: Normal endplates. Normal disc height, signal and morphology. Normal central canal and intervertebral neural foramina. C3-4: Normal endplates. Normal disc height, signal and tiny central disc protrusion.. Normal central canal and intervertebral neural foramina. C4-5: Minor endplate spurring. Normal disc height, signal and small right paracentral disc protrusion.. Normal central canal and intervertebral neural foramina. C5-6: Minor endplate spurring.. Normal disc height, signal and morphology. Normal central canal and intervertebral neural foramina. C6-7: Normal endplates. Normal disc height, signal and morphology. Normal central canal and intervertebral neural foramina. C7-T1: Normal endplates. Normal disc height, signal and morphology. Normal central canal and intervertebral neural foramina. Normal cervical cord. Normal visualized soft tissue structures. MRI/Spine Cervical (Routine) IMPRESSION: No acute fracture or other significant bony pathology Tiny central disc protrusion at C3-4 and small right paracentral disc protrusion at C4-5 without significant spinal stenosis Electronically Signed: Gama Dolan MD at 17:24 EDT , Service support ,
== END ==
PROVIDERS: Family Provider Internal Medicine; PCP Internal Medicine; Referring Provider Nurse Practitioner Family; Visit Provider Nurse Practitioner Family
DX: R20.0 Anesthesia of skin (principal); R20.2 Paresthesia of skin; M54.2 Cervicalgia; R29.898 Other symptoms and signs involving the musculoskeletal system
CPT/HCPCS: 72141

== ENCOUNTER → 2019-05-18 13:42 | Outpatient (CLI) | payer MEDICARE, SELFPAY ==
[2018-04-17 14:15] VITALS: BMI 24.4
--- NOTE | 2019-05-18 13:46 | CT_ITS ---
STUDY: CT CHEST WITHOUT CONTRAST- LOW DOSE SCREENING PROTOCOL REASON FOR EXAM: Female, 64 years old. Current smoker. 40 pack per year history. No current symptoms of lung cancer or pulmonary infection. Shared decision-making with referring PCP documented in patient''s record. RADIATION DOSAGE (If Supplied By Facility): CTDIvol = ( 2.01 ) mGy, DLP = ( 76.75 ) mGycm TECHNIQUE: Low dose screening CT examination performed from the base of the neck to the upper abdomen. Sagittal and coronal reformatted images performed. Sagittal and coronal MIP images provided. The measurements provided are average, rounded measurements per ACR guidelines. COMPARISON: 11/28/2015 FINDINGS: Mild bilateral apical scarring. Mild emphysematous changes. 4 mm groundglass nodule in the medial left upper lobe the lungs on image 73 and follow-up CT the chest is recommended in 12 months document stability. There is no demonstrated pleural abnormality. There is a small pericardial effusion. There are calcifications of the coronary arteries. Normal mediastinum. Normal hilar regions. Normal unenhanced pulmonary arteries. There is atherosclerotic calcification of the aortic arch with tortuosity and elongation of the aortic arch and descending thoracic aorta. Normal osseous structures. There is no demonstrated abnormality of the visualized upper abdomen. CT/Low Dose CT Lung Screening IMPRESSION: 1. 4 mm groundglass nodule in the left upper lobe the lungs and follow-up CT is recommended in 12 months.. 2. Incidental findings include small pericardial effusion.. ASSESSMENT CATEGORY: LungRADS 2 - Benign Appearance or Behavior. Continue annual screening with LDCT in 12 months, per established ACR guidelines. Electronically Signed: Cordell Walker MD at 14:18 EST Tel , Service support ,
--- NOTE | 2019-05-18 14:01 | BI_ITS ---
MAMMOGRAPHY - BILATERAL SCREENING REASON FOR EXAM: Female, 64 years old. Routine annual screening examination. PERTINENT HISTORY: Aunt with breast cancer. TECHNIQUE: Digital bilateral breast joie (3D mammographic acquisition) in the CC and MLO projections. 2-D mediolateral oblique (MLO) and craniocaudad (CC) views of both breasts were obtained. CAD: Full Field Digital Mammography with Computer Added Detection was performed. COMPARISON: Comparison is made with prior study dated July 09, 2016 and July 19, 2014. FINDINGS: Breast Composition: The breasts are heterogeneously dense, which may obscure small masses. There are no dominant masses or suspicious calcifications. No other significant abnormalities are identified. There has been no significant change since the prior study. BI/SCREEN MAMM (CAD) W/JOIE BILAT IMPRESSION: Stable bilateral screening mammogram. Yearly follow-up mammogram recommended. (A) ASSESSMENT CATEGORY: BIRADS Category 1: Negative. A letter regarding these results will be sent to the patient by the facility within 30 days. Approximately 10% of breast cancers are not detected by mammography. A normal mammogram should not delay biopsy of a clinically suspicious abnormality. [id number] Electronically Signed: Steve Martinez, at 15:12 EST , Service support ,
== END ==
PROVIDERS: Family Provider Internal Medicine; PCP Internal Medicine; Referring Provider Internal Medicine; Visit Provider Internal Medicine
DX: Z12.31 Encounter for screening mammogram for malignant neoplasm of breast (principal); F17.210 Nicotine dependence, cigarettes, uncomplicated; R63.4 Abnormal weight loss
CPT/HCPCS: 77063; 77067; G0297

== ENCOUNTER → 2019-09-06 13:37 | Outpatient (CLI) | payer MEDICARE, SELFPAY ==
[2018-04-17 14:15] VITALS: BMI 24.4
--- NOTE | 2019-09-06 13:39 | CT_ITS ---
STUDY: CT CHEST WITH CONTRAST REASON FOR EXAM: Female, 64 years old. Lung nodule left side, 40lb weight loss 6 months RADIATION DOSAGE (If Supplied By Facility): CTDIvol = ( 6.94 ) mGy, DLP = ( 184.77 ) mGycm TECHNIQUE: Transaxial imaging was performed following intravenous administration of IV 100ML ISOVUE 370. Multiplanar coronal and sagittal images were reformatted. Individualized dose optimization techniques were used for this CT. COMPARISON: Comparison is made with prior study dated May 18, 2019. FINDINGS: Stable minimal bilateral apical scarring. Stable 4 mm groundglass nodule in the medial left upper lobe as seen on axial image #35. Mild degree of emphysematous changes. This is unchanged. There is no demonstrated pleural abnormality. Normal heart and pericardium. Normal mediastinum. Normal hilar regions. Normal enhanced pulmonary arteries. There is atherosclerotic calcification of the aortic arch with tortuosity and elongation of the aortic arch and descending thoracic aorta. There are degenerative changes of the thoracic spine. There is no demonstrated abnormality of the visualized upper abdomen. CT/Chest WITH Contrast IMPRESSION: Stable 4 mm groundglass nodule in the medial left upper lobe. Electronically Signed: Steve Martinez, at 14:48 EDT , Service support ,
== END ==
PROVIDERS: PCP Internal Medicine; Referring Provider Internal Medicine; Visit Provider Internal Medicine
DX: I67.1 Cerebral aneurysm, nonruptured (principal); R91.1 Solitary pulmonary nodule
CPT/HCPCS: 71260; Q9967; A4216

== ENCOUNTER → 2019-09-13 12:51 | Outpatient (CLI) | payer MEDICARE, SELFPAY ==
[2018-04-17 14:15] VITALS: BMI 24.4
[2019-09-13 14:53] LABS: Absolute Neutrophil Count 4.4 X10^3/uL (2.0-7.7); Basophil# 0.04 X10^3/uL; Basophil% 0.5 % (0-1); Eosinophil# 0.93 X10^3/uL; Eosinophils% 12.3 % (0-5); Hematocrit 40.8 % (37-47); Lymphocyte % 22.5 % (19-41); Mean Corp Hgb Conc 31.9 g/dL (32-36); Mean Corpuscular Hgb 30.2 pg (27.0-32.0); Mean Corpuscular Volume 94.9 fL (81-99); Mean Platelet Vol. 11.1 fl (6.2-12.0); Monocyte% 6.6 % (0-10); NRBC Flagged by Analyzer 0 % (0-5); Neutrophil # 4.38 X10^3/uL (2.7-7.7); Neutrophil % 57.8 % (47-70); Platelet Count 174 K/mm3 (150-450); RBC Distribution Width CV 14.6 % (11.6-14.6); RBC Distribution Width SD 50.9 fl (35.1-43.9); White Blood Count 7.6 K/mm3 (4.4-11.0)
[2019-09-13 15:05] LABS: ALB/GLOB Ratio 0.9 RATIO (0.9-2.4); AST(SGOT) 30 U/L (15-37); Alanine Aminotransfer ALT/SGPT 48 U/L (13-56); Albumin, Serum 3.5 g/dL (3.2-5.0); Alkaline Phosphatase 80 U/L (45-117); Anion Gap 4 (5-15); BUN 38 mg/dL (7-18); BUN/Creat Ratio 47.4 RATIO (10-20); Chloride 106 mmol/L (98-107); EST Glomerular Filtration Rate 77 mL/min (>60); Est Glom Filt Rate - Afr Amer 93 mL/min (>60); Globulin 3.9 g/dL (2.2-4.2); Glucose 136 mg/dL (74-106); Potassium 3.7 mmol/L (3.5-5.1); Protein, Total 7.4 g/dL (6.4-8.2); Sodium Level 139 mmol/L (136-145)
[2019-09-17 00:39] LABS: KEPPRA (LEVETIRACETAM) 57.2 ug/mL (10.0-40.0); Trileptal-Oxcarbazepine 19 ug/mL (10-35)
== END ==
PROVIDERS: PCP Internal Medicine; Referring Provider Psychiatry & Neurology Neurology; Visit Provider Psychiatry & Neurology Neurology
DX: R56.9 Unspecified convulsions (principal)
CPT/HCPCS: 36415; 80053; 80177; 82542; 85025

== ENCOUNTER → 2019-09-21 12:21 | Outpatient (CLI) | payer MEDICARE, SELFPAY ==
[2018-04-17 14:15] VITALS: BMI 24.4
--- NOTE | 2019-09-21 12:28 | BD_ITS ---
STUDY: DUAL ENERGY X-RAY ABSORPTIOMETRY / DXA REASON FOR EXAM: Female, 64 years old. 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 COMPARISON: Comparison is made with prior examination dated July 09, 2016. FINDINGS: Lumbar Spine (L1-L4): g/cm2 (0.897) / T-score (-2.4) / Z-score (-0.8) Findings are suggestive of osteopenia with a high fracture risk. Left Femur Total: g/cm2 (0.566) / T-score (-3.5) / Z-score (-2.4) Left Femoral Neck: g/cm2 (0.654) / T-score (-2.8) / Z-score (-1.3) Right Femur Total: g/cm2 (0.606) / T-score (-3.2) / Z-score (-2.0) Right Femoral Neck: g/cm2 (0.643) / T-score (-2.8) / Z-score (-1.4) The T-Scores on the most recent prior examination were: Lumbar Spine (L1-L4): There has been worsening of bone density since the previous examination. Left Femur Total: which represents a worsening of 15.6%. Right Femur Total: which represents a worsening of 11.4%. BD/DXA BONE DENS W/VERT FX ASMT IMPRESSION: The patient is considered osteoporotic as outlined below according to World Saurabh Organization (WHO) criteria with a high fracture risk. There has been worsening of bone density since the previous examination. Reference Information: The T-score is the number of standard deviations above or below the standard which is normal for young adults at their peak bone mineral density. The World Health Organization (WHO) interprets the T-scores as follows: Above -1 Normal bone density Between -1 and -2.5 Osteopenia Equal to / or below -2.5 Osteoporosis As a practical clinical guideline, osteopenia may be graded as follows: Mild -1 through -1.5 Moderate -1.6 through -2.0 Severe -2.1 through -2.4 The Z-score is the number of standard deviations above or below age-matched controls. A Z-score of less than -1.5 would be considered abnormal. References: 1. NIH Osteoporosis and Related Bone Diseases http://www.osteo.org 2. International Society for Clinical Densitometry http://www.iscd.org 3. National Osteoporosis Foundation http://www.nof.org Electronically Signed: Steve Martinez, at 9:02 EDT , Service support ,
== END ==
PROVIDERS: PCP Internal Medicine; Referring Provider Internal Medicine; Visit Provider Internal Medicine
DX: Z78.0 Asymptomatic menopausal state (principal)
CPT/HCPCS: 77085

== ENCOUNTER → 2019-09-23 13:35 | Outpatient (CLI) | payer MEDICARE, SELFPAY ==
[2018-04-17 14:15] VITALS: BMI 24.4
--- NOTE | 2019-09-23 13:42 | CT_ITS ---
STUDY: CT BRAIN WITHOUT CONTRAST REASON FOR EXAM: Female, 64 years old. Seizures, brain aneurysm with clipping, diabetes, hypertension, skin cancer. RADIATION DOSAGE (If Supplied By Facility): CTDIvol = ( 44.99 ) mGy, DLP = ( 779.24 ) mGycm TECHNIQUE: Transaxial CT imaging of the brain was performed without administration of intravenous contrast material. Individualized dose optimization techniques were used for this CT. COMPARISON: Noncontrast CT brain April 02, 2017. FINDINGS: Normal soft tissue structures. Patient has undergone prior right frontotemporal parietal craniotomy. An old left frontal shailesh hole is also present. Normal size ventricles and extra-axial spaces for the patient''s age. There is focal decreased attenuation within the left frontal white matter tracts, consistent with microvascular disease changes. There is old lacunar infarct at the posterior aspect of the left lateral basal ganglia. Normal right basal ganglia and bilateral thalami. Normal brainstem. There is wedge shaped encephalomalacia consistent with old cortical infarct in the posterolateral left cerebellar hemisphere. Aneurysm clips are noted along the supraclinoid segments of the bilateral mildly calcified cavernous internal carotid arteries. There is no intracranial hemorrhage. There is right frontal lobe encephalomalacia of old infarct. There are no findings of an acute ischemic infarction. Normal visualized paranasal sinuses. CT/Brain/Head without Contrast IMPRESSION: 1. No acute intracranial pathology. 2. Prior right frontotemporal parietal craniotomy and clipping of bilateral supraclinoid internal carotid artery aneurysms. 3. Encephalomalacia old infarct in the right frontal lobe and posterolateral left cerebellar hemisphere. Old lacunar infarct also seen in the posterior left basal ganglia. Electronically Signed: Ady Mcgrath MD at 14:36 EDT , Service support ,
== END ==
PROVIDERS: PCP Internal Medicine; Referring Provider Psychiatry & Neurology Neurology; Visit Provider Psychiatry & Neurology Neurology
DX: R56.9 Unspecified convulsions (principal)
CPT/HCPCS: 70450

== ENCOUNTER 2019-11-02 04:49 | Observation (INO) | payer MEDICARE, SELFPAY ==
[2018-04-17 14:15] VITALS: BMI 24.4
[2019-11-02] VITALS (10 sets, daily range): BP systolic 94–122; BP diastolic 50–62; PULSE 63–79; RESP 12–16; TEMP 35.7–36.7; O2SAT 90–100; BMI 22.1; BMI 22.2
--- NOTE | 2019-11-02 05:03 | CT_ITS ---
STUDY: CT BRAIN WITHOUT CONTRAST REASON FOR EXAM: Female, 64 years old. Altered mental status. History of lupus, CVA, dementia, cerebral aneurysm repair. RADIATION DOSAGE (If Supplied By Facility): CTDIvol = ( 44.99 ) mGy, DLP = ( 796.11 ) mGycm TECHNIQUE: Transaxial CT imaging of the brain was performed without administration of intravenous contrast material. Individualized dose optimization techniques were used for this CT. COMPARISON: September 23, 2019. FINDINGS: Normal soft tissue structures. Postoperative changes right parietal temporal craniotomy, right frontal shailesh hole and prior aneurysmal clipping. Ex vacuo dilatation anterior horn right lateral ventricle. There are areas of decreased attenuation within the white matter tracts of the supratentorial brain, consistent with microvascular disease changes. Normal thalami. Normal brainstem. Encephalomalacia compatible with old right frontal lobe infarction and old left inferior cerebellar hemispheric infarction. Old lacunar infarction left lentiform nucleus. There is no intracranial hemorrhage. There are no findings of an acute ischemic infarction. Normal visualized paranasal sinuses. CT/Brain/Head without Contrast IMPRESSION: Stable head CT, no acute intracranial abnormality. Old right frontal lobe infarction Old left cerebellar hemisphere infarction. Old left basal ganglia lacunar infarction. Postoperative changes as above. Electronically Signed: Elliot Montague MD at 6:08 EDT , Service support ,
--- NOTE | 2019-11-02 05:03 | RAD_ITS ---
STUDY: X-RAY CHEST REASON FOR EXAM: Female, 64 years old. Weakness. Lump to the right of the sternum for 6 months. TECHNIQUE: AP portable chest. COMPARISON: 02/19/2018. FINDINGS: The lungs are clear and expanded. There is no demonstrated pleural abnormality. Normal size heart. Normal mediastinum and cary. Normal visualized pulmonary arteries. Normal visualized aortic arch and descending thoracic aorta. Normal visualized thoracic spine. Normal visualized ribs, clavicles, and shoulders. There is no demonstrated abnormality of the visualized soft tissue structures of the upper abdomen. RAD/Chest 1 View (Portable) IMPRESSION: No acute cardiopulmonary disease. Lump described along anterior chest wall not appreciated on this study. Electronically Signed: Elliot Montague MD at 6:00 EDT , Service support ,
--- NOTE | 2019-11-02 05:03 | EKG12_ITS ---
Test Reason : HYPOTENSION Blood Pressure : / mmHG Vent. Rate : 065 BPM Atrial Rate : 065 BPM P-R Int : 196 ms QRS Dur : 074 ms QT Int : 420 ms P-R-T Axes : 076 -19 047 degrees QTc Int : 436 ms Normal sinus rhythm Low voltage QRS Borderline ECG Confirmed by JEANNIE KO ([id number]), editor book PIYUSH KEITH ([id number]) on 11/04/2019 11:50:56 AM Referred By: GRISEL Confirmed By:JEANNIE KO
--- NOTE | 2019-11-02 05:05 | ED.VIS.GEN ---
History of Present Illness Chief Complaint: Hypotension Informant: Patient, Family, District Claims Manager Onset: Today - JPTA Context: Sudden Onset Timing: Lasts - unk Quality: unconscious Current Severity: gone Maximum Severity: Severe Worsened by: unk Relieved by: oxygen and IVFB given by EMS Associated Symptoms: pt denies Narrative: Patient was last seen normal at 0230. She went to the garage to watch a movie and to smoke. She states that she felt fine and the next thing she knew she woke up to her stepson trying to wake her up. This occurred around 0345. She was found sitting in her chair, head back, unconscious. She was able to be aroused. EMS was called, they state that initially her blood pressure was 60/40, family had lowered her to the ground to keep her from falling. She did not injure herself. No recent illness or travel. She has a history of stroke, it left her with some mental incapacities, and ataxia; she needs to hold onto furniture in order to keep her self from falling when getting around the house. She denies any new symptoms now. With regards to a history of seizures, which may or may not be related to an aneurysm she had in the past, son describes them as petit mal episodes, for which she sees Dr. Jennings and was on Keppra until about 6 weeks ago, when she was switched to gabapentin. They state that even on Keppra she had episodes relatively regularly, maybe 2 or 3 times a week, which has not significantly changed since she was switched to gabapentin. The Keppra was discontinued because of weight loss according to the patient. - Past Medical History (1) Diverticulosis Status: Chronic (2) COPD (chronic obstructive pulmonary disease) Status: Chronic (3) Fibromyalgia Status: Chronic (4) History of cerebral aneurysm repair Status: Chronic Comment: Status post clipping (5) Lupus erythematosus Status: Chronic (6) Osteoporosis Status: Chronic (7) Tobacco dependence syndrome Status: Chronic (8) Type II diabetes mellitus Status: Chronic (9) Acute ischemic stroke Status: Suspected Past Medical History - Allergies and Home Meds Allergies/Adverse Reactions: Allergies celecoxib [From Celebrex] Allergy (Verified 04/20/18 13:55) Swelling fluoxetine Allergy (Verified 11/02/19 05:00) PT UNSURE OF REACTION hydrocodone Allergy (Verified 06/30/20 05:01) PT UNSURE OF REACTION pneumococcal 23-valent polysacchari [From Pneumovax 23] Allergy (Verified 11/02/19 05:02) PT UNSURE OF REACTION pneumococcal vaccine [Pneumococcal Vaccine] Allergy (Verified 04/20/18 13:55) Rash ranitidine Allergy (Verified 11/02/19 05:01) PT UNSURE OF REACTION rofecoxib Allergy (Verified 11/02/19 05:01) PT UNSURE OF REACTION valdecoxib Allergy (Verified 11/02/19 05:00) PT UNSURE OF REACTION bee stings Allergy (Severe, Uncoded 04/20/18 13:55) septic Primary Care Physician: Kellen Jean DO [Primary Care Provider] - Doctors: Michaela - Neurology Surgical History: ligation, and adenoids Lives: With Family Smoking Status: Current every day smoker - Family History Maternal Family History: Family History (Last Reviewed 04/20/18 @ 13:56 by Itzel Lentz) Aunt Asthma Father Heart disease Hypertension CVA (cerebral vascular accident) Uncle Diabetes Grandmother CVA (cerebral vascular accident) Family History: Reports: No pertinent history Paternal Family History: Family History (Last Reviewed 04/20/18 @ 13:56 by Itzel Lentz) Aunt Asthma Father Heart disease Hypertension CVA (cerebral vascular accident) Uncle Diabetes Grandmother CVA (cerebral vascular accident) Family History: Reports: No pertinent history Review of Systems General: Denies: Chills, Fever, Sweats Eyes: Denies: Visual changes - bilaterally, Diplopia ENT: Denies: Rhinorrhea, Sore throat Cardiovascular: Denies: Chest pain, Palpitations Respiratory: Denies: Dyspnea, Cough, Dyspnea on exertion Gastrointestinal: Denies: Abdominal pain, Nausea, Vomiting, Diarrhea, Melena, Hematochezia Genitourinary: Denies: Dysuria, Hematuria, Frequency Musculoskeletal: Denies: Myalgias, Neck pain, Back pain, Extremity Pain Skin: Denies: Rash, Wounds Neurological: Reports: Headache - off and on several days, not currently. Denies: Weakness, Numbness Physical Exam Vital Signs/Narrative: Vital Signs Temp Pulse Resp BP Pulse Ox 11/02/19 04:56 113/60 11/02/19 04:51 96.3 F L 65 13 100 Inital Vital Signs reviewed: Yes General: Well nourished, Well developed, No Acute Distress Head: Normocephalic, Atraumatic Eyes: Perrl, EOMI ENT: Moist mucous membranes, No rhinorrhea, - - POP clear. No tongue abrasion/trauma.. Negative for: Sinus tenderness Neck: Supple, Nontender, No lymphadenopathy Cardiovascular: Regular rate, Regular rhythm, No murmurs. Negative for: Tachycardia, Bradycardia Respiratory: No distress, CTA bilaterally, Chest nontender Abdomen: Soft, Nontender, Nondistended, Normal bowel sounds Back: Nontender, Normal Inspection Extremities: Nontender, No edema Skin: Normal color, No rash, No Trauma - no signs of injury. Neurological: Alert, Oriented x3 - including age, month, Cranial nerves II-XII grossly intact, Normal Strength, Normal Sensation, Normal DTR, - - nml FTN and HTS bilat. NIHSS - 0 Psychological: Normal affect, Normal Mood Diagnostic/Tx/Re-eval Impressions Brain CT 11/02/19 05:03 IMPRESSION: Stable head CT, no acute intracranial abnormality. Old right frontal lobe infarction Old left cerebellar hemisphere infarction. Old left basal ganglia lacunar infarction. Postoperative changes as above. Electronically Signed: Elliot Montague MD at 6:08 EDT , Service support , Chest X-Ray 11/02/19 05:03 IMPRESSION: No acute cardiopulmonary disease. Lump described along anterior chest wall not appreciated on this study. Electronically Signed: Elliot Montague MD at 6:00 EDT , Service support , 11/02/19 05:03 Brain/Head without Contrast [CT] Stat Chest 1 View (Portable) [RAD] Stat Laboratory Results 11/02/19 11/02/19 11/02/19 05:00 05:00 05:15 WBC 8.3 RBC 3.90 L Hgb 11.9 L Hct 37.6 MCV 96.4 MCH 30.5 MCHC 31.6 L RDW Std Deviation 50.0 H RDW Coeff of Leisa 14.2 Plt Count 192 MPV 10.5 Immature Gran % (Auto) 0.200 Neut % (Auto) 59.4 Lymph % (Auto) 28.3 Russell % (Auto) 10.1 H Eos % (Auto) 1.6 Baso % (Auto) 0.4 Absolute Neuts (auto) 4.9 Absolute Lymphs (auto) 2.35 Nucleated RBC % 0 Sodium 139 Potassium 4.7 Chloride 106 Carbon Dioxide 29.0 Anion Gap 4 L BUN 43 H Creatinine 1.07 H Estim Creat Clear Calc 40.08 Est GFR (MDRD) Af Amer 66 Est GFR (MDRD) Non-Af 55 L BUN/Creatinine Ratio 40.2 H Glucose 132 H Lactic Acid Calcium 8.3 L Total Bilirubin 0.30 AST 32 ALT 47 Alkaline Phosphatase 75 Total Creatine Kinase 83 Troponin I < 0.015 Total Protein 6.8 Albumin 3.1 L Globulin 3.7 Albumin/Globulin Ratio 0.8 L Urine Color Urine Clarity Urine pH Ur Specific [place] Urine Protein Urine Glucose (UA) Urine Ketones Urine Occult Blood Urine Nitrite Urine Bilirubin Urine Urobilinogen Ur Leukocyte Esterase Ethyl Alcohol < 3.0 11/02/19 11/02/19 05:15 05:40 WBC RBC Hgb Hct MCV MCH MCHC RDW Std Deviation RDW Coeff of Leisa Plt Count MPV Immature Gran % (Auto) Neut % (Auto) Lymph % (Auto) Russell % (Auto) Eos % (Auto) Baso % (Auto) Absolute Neuts (auto) Absolute Lymphs (auto) Nucleated RBC % Sodium Potassium Chloride Carbon Dioxide Anion Gap BUN Creatinine Estim Creat Clear Calc Est GFR (MDRD) Af Amer Est GFR (MDRD) Non-Af BUN/Creatinine Ratio Glucose Lactic Acid 1.0 Calcium Total Bilirubin AST ALT Alkaline Phosphatase Total Creatine Kinase Troponin I Total Protein Albumin Globulin Albumin/Globulin Ratio Urine Color Yellow Urine Clarity Sl. Cloudy Urine pH 5.0 Ur Specific [place] 1.020 Urine Protein 30 H Urine Glucose (UA) Normal Urine Ketones Negative Urine Occult Blood Negative Urine Nitrite Negative Urine Bilirubin Negative Urine Urobilinogen Normal Ur Leukocyte Esterase 25 H Ethyl Alcohol - Rhythm Strip Rhythm Strip: Sinus Rhythm Rate: 65 Ectopy: None - EKG Initial EKG Interpretation: Sinus Rhythm, No Acute Injury Pattern Prior: Unchanged - Medical Decision Making As above labs are unremarkable except for mild prerenal azotemia. I do not think dehydration because this, since the patient had no prodromal lightheadedness or other warning/symptoms. Imaging shows no acute pneumonia, stable brain with multiple prior infarcts. Still waiting on urinalysis, this is been ordered mainly to rule out infection/early sepsis. Her lactate is within normal limits. Her CPK is within normal limits. Cardiac dysrhythmias are in the differential given that she was transiently hypotensive and apparently lost consciousness suddenly. Plan is for inpatient observation on telemetry. Urinalysis negative. ED Disposition - Plan for ED Patient: Disposition: Acute Care Hospital [facility] Diagnosis: Syncope, Transient hypotension, Mild dehydration Referrals: Kellen Jean DO [Primary Care Provider] -
[2019-11-02] MEDS: 0.9% Normal Saline 1,000 ML 150 ML IV (05:15)
[2019-11-02 05:18] LABS: Absolute Lymphocyte Count 2.35 X10^3/uL (0.83-4.51); Absolute Neutrophil Count 4.9 X10^3/uL (2.0-7.7); Basophil# 0.03 X10^3/uL; Basophil% 0.4 % (0-1); Eosinophil# 0.13 X10^3/uL; Eosinophils% 1.6 % (0-5); Hematocrit 37.6 % (37-47); Hemoglobin 11.9 g/dL (12.0-15.0); Lymphocyte # 2.35 X10^3/ul (4.0); Lymphocyte % 28.3 % (19-41); Mean Corp Hgb Conc 31.6 g/dL (32-36); Mean Corpuscular Hgb 30.5 pg (27.0-32.0); Mean Corpuscular Volume 96.4 fL (81-99); Mean Platelet Vol. 10.5 fl (6.2-12.0); Monocyte# 0.84 X10^3/uL; Monocyte% 10.1 % (0-10); NRBC Flagged by Analyzer 0 % (0-5); Neutrophil # 4.92 X10^3/uL (2.7-7.7); Neutrophil % 59.4 % (47-70); Platelet Count 192 K/mm3 (150-450); RBC Distribution Width CV 14.2 % (11.6-14.6); White Blood Count 8.3 K/mm3 (4.4-11.0)
[2019-11-02 05:32] LABS: ALB/GLOB Ratio 0.8 RATIO (0.9-2.4); AST(SGOT) 32 U/L (15-37); Alanine Aminotransfer ALT/SGPT 47 U/L (13-56); Albumin, Serum 3.1 g/dL (3.2-5.0); Alkaline Phosphatase 75 U/L (45-117); Anion Gap 4 (5-15); BUN 43 mg/dL (7-18); BUN/Creat Ratio 40.2 RATIO (10-20); CPK Total, Creatine Kinase 83 U/L (26-192); Calcium,Total 8.3 mg/dL (8.5-10.1); Chloride 106 mmol/L (98-107); Creatinine, Serum 1.07 mg/dL (0.55-1.02); EST Glomerular Filtration Rate 55 mL/min (>60); Est Glom Filt Rate - Afr Amer 66 mL/min (>60); Estimated Creatinine Clearance 40.08 ml/min; Globulin 3.7 g/dL (2.2-4.2); Glucose 132 mg/dL (74-106); Potassium 4.7 mmol/L (3.5-5.1); Protein, Total 6.8 g/dL (6.4-8.2); Sodium Level 139 mmol/L (136-145)
[2019-11-02 05:48] LABS: Bacteria 0 SEEN /hpf (None Seen); Red Blood Cells-Urine 0 SEEN /hpf (0-5); Squamous Epithelial Cells - UA 0 SEEN /hpf (5-10)
[2019-11-02 05:49] LABS: Color, Urine Yellow (Yellow); Glucose, Dipstick Normal (Normal); Ketone-Dipstick Negative (Negative); Leukocyte Esterase-Dipstick 25 /ul (Negative); Nitrite-Dipstick Negative (Negative); Occult Blood-Urine Negative /ul (Negative); Protein-Dipstick 30 mg/dl (Negative); Urine Bilirubin Dipstick Negative (Negative); Urine Clarity Sl. Cloudy (Clear); Urine Urobilinogen Normal (Normal)
[2019-11-02 06:15] LABS: Alcohol, Blood (Medical)-Serum < 3.0 mg/dL
--- NOTE | 2019-11-02 06:41 | PCM.HP.STD ---
Problem List (1) Transient hypotension Status: Acute (2) Mild dehydration Status: Acute (3) Type II diabetes mellitus Status: Chronic (4) Fibromyalgia Status: Chronic (5) Tobacco dependence syndrome Status: Chronic (6) Lupus erythematosus Status: Chronic (7) COPD (chronic obstructive pulmonary disease) Status: Chronic (8) History of cerebral aneurysm repair Status: Chronic Comment: Status post clipping History of Present Illness Date of Admission: 11/02/19 Chief Complaint: syncopal episode/initially unresponsive The patient is a 64 year old female patient with a past medical history of stroke, cerebral aneurysm repair, diabetes, and cognitive dysfunction who presents to the emergency room after an event which occurred approximately 2:30 this morning when she was found to be unresponsive. 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 EMS arrived and they were able to arouse her with shaking motion and her initial blood pressure was found to be 60/40. The patient now states she feels tired but denies chest pain or shortness of breath, fevers or chills or other constitutional symptoms. After receiving IV bolus fluid patient's blood pressure has improved and her level of consciousness has remained normal. Laboratory studies are unremarkable with regards to CBC, CMP, normal troponin, negative UA and CT scan of the brain which is unchanged. Due to the unknown cause and nature of this unconscious state the patient was found to be in the patient she will be admitted for observation. Her does admit the patient does not like to drink very much fluid and therefore she may simply be dehydrated. Past Medical History Past Medical History (Chronic Problems): Chronic Problems (Last Reviewed 04/20/18 @ 13:56 by Itzel Lentz) Diverticulosis (Chronic) Type II diabetes mellitus (Chronic) Fibromyalgia (Chronic) Tobacco dependence syndrome (Chronic) Osteoporosis (Chronic) Lupus erythematosus (Chronic) COPD (chronic obstructive pulmonary disease) (Chronic) History of cerebral aneurysm repair (Chronic) Status post clipping Medical History: Medical History (Last Reviewed 04/20/18 @ 13:56 by Itzel Lentz) Skin lesion of left arm (Acute) L98.9 Diverticulosis (Chronic) K57.90 Acute colitis (Acute) K52.9 Type II diabetes mellitus (Chronic) E11.9 Fibromyalgia (Chronic) Tobacco dependence syndrome (Chronic) F17.200 Osteoporosis (Chronic) M81.0 Lupus erythematosus (Chronic) L93.0 COPD (chronic obstructive pulmonary disease) (Chronic) J44.9 Acute ischemic stroke (Suspected) I63.9 Diverticulitis K57.92 IBS (irritable bowel syndrome) K58.9 Allergies celecoxib [From Celebrex] Allergy (Verified 04/20/18 13:55) Swelling fluoxetine Allergy (Verified 11/02/19 05:00) PT UNSURE OF REACTION hydrocodone Allergy (Verified 11/02/19 05:01) PT UNSURE OF REACTION pneumococcal 23-valent polysacchari [From Pneumovax 23] Allergy (Verified 11/02/19 05:02) PT UNSURE OF REACTION pneumococcal vaccine [Pneumococcal Vaccine] Allergy (Verified 04/20/18 13:55) Rash ranitidine Allergy (Verified 11/02/19 05:01) PT UNSURE OF REACTION rofecoxib Allergy (Verified 11/02/19 05:01) PT UNSURE OF REACTION valdecoxib Allergy (Verified 11/02/19 05:00) PT UNSURE OF REACTION bee stings Allergy (Severe, Uncoded 04/20/18 13:55) septic Home Medications: Ambulatory Orders Medication Instructions Recorded Albuterol Inhaler [Ventolin Hfa] 1 - 2 puff INHALATION Q6H PRN PRN 03/22/14 Baclofen 10 mg PO DAILY 03/22/14 Diaplex 2 cap PO BID 03/22/14 Diazepam [Valium] 10 mg PO QHS 03/22/14 Aspirin [Aspirin, Baby] 81 mg PO DAILY@0800 #90 tab.chew 03/24/14 Atorvastatin Calcium [Lipitor] 40 mg PO QHS #90 tab 03/24/14 budesonide-formoterol HFA 160 1 puff INHALATION DAILY 12/26/17 mcg-4.5 mcg/actuation aerosol inhaler ergocalciferol (vitamin D2) 1,250 50,000 unit PO LOPEZ cap 12/26/17 mcg (50,000 unit) capsule gabapentin 300 mg capsule 300 mg PO DAILY 12/26/17 olanzapine 2.5 mg tablet 2.5 mg PO DAILY 12/26/17 paroxetine HCl 10 mg tablet 20 mg PO QHS tab 12/26/17 Metronidazole [Flagyl] 500 mg PO Q8H #6 tab 02/23/18 Megestrol Acetate [Megace Udc] 625 mg PO DAILY 11/02/19 Oxcarbazepine [Trileptal] 300 mg PO BID 11/02/19 Surgical History: Surgical History (Last Reviewed 04/20/18 @ 13:56 by Itzel Lentz) History of cerebral aneurysm repair (Chronic) Z98.890, Z86.79 Status post clipping History of carpal tunnel release Z98.890 History of tubal ligation Z98.51 Surgical History: ligation, and adenoids Psychiatric History: No pertinent psych hx 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 Lives: With Family Smoking Status: Current every day smoker - *Family History Maternal Family History: Family History (Last Reviewed 04/20/18 @ 13:56 by Itzel Lenzt) Aunt Asthma Father Heart disease Hypertension CVA (cerebral vascular accident) Uncle Diabetes Grandmother CVA (cerebral vascular accident) History Items: No pertinent history Paternal Family History: Family History (Last Reviewed 04/20/18 @ 13:56 by Itzel Lentz) Aunt Asthma Father Heart disease Hypertension CVA (cerebral vascular accident) Uncle Diabetes Grandmother CVA (cerebral vascular accident) History Items: No pertinent history Review of Systems Constitutional: Reports: Weakness. Denies: Chills, Fever, Weight Change HEENT: Denies: Head Aches, Sinus Congestion, Sinus Drainage Cardiovascular: Reports: Syncope. Denies: Chest Pain, Palpitations Respiratory: Denies: Cough, Shortness of breath at rest, Sputum production Gastrointestinal: Denies: Abdominal Pain, Nausea, Vomiting Genitourinary: Denies: Dysuria Musculoskeletal: Denies: Joint Pain, Joint Tenderness Skin: Denies: Rash, Wounds Neurological: Denies: Numbness, Tingling, Focal weakness Psychiatric: Denies: Anxiety, Depression, Homicidal Ideations, Suicidal Ideations Hematologic/ Lymphatic: Denies: Easy Bruising, Easy Bleeding VTE Information - Inpt Only VTE Present on Admission: No VTE Mechan Device Prophylaxis: None VTE Pharm Prophylaxis ordered?: Yes Patient Problems: Active and Suspected Problems (Last Reviewed 04/20/18 @ 13:56 by Itzel Lentz) Syncope (Acute) Transient hypotension (Acute) Mild dehydration (Acute) - Physical Exam Vitals/I&O's: Vital Signs Temp Pulse Resp BP Pulse Ox 97.6 F L 66 14 99/54 L 94 11/02/19 06:33 11/02/19 06:33 11/02/19 06:33 11/02/19 06:33 11/02/19 06:33 Oxygen Delivery Method Room Air Weight: 117 lb 4.575 oz Body Mass Index (BMI) 22.1 Finger Stick Blood Glucose 89 General: Alert, Cooperative, Confused HEENT: Atraumatic, PERRLA, EOMI, Normocephalic Neck: Supple Lungs: Clear to auscultation, Normal air movement, No rhonchi, No wheeze, No rales Cardiovascular: Regular rate, Regular Rhythm, Normal S1, Normal S2, No murmurs Abdomen: Bowel Sounds Present, Soft, Non Tender Extremities: No edema Skin: No rashes Musculoskeletal: No Tenderness to Palpation of Joints or Extremities Neurological: Neuro grossly intact Psych/Mental Status: Normal Affect, Appropriate Laboratory Results 11/02/19 05:00: WBC 8.3, RBC 3.90 L, Hgb 11.9 L, Hct 37.6, MCV 96.4, MCH 30.5, MCHC 31.6 L, RDW Std Deviation 50.0 H, RDW Coeff of Leisa 14.2, Plt Count 192, MPV 10.5, Immature Gran % (Auto) 0.200, Neut % (Auto) 59.4, Lymph % (Auto) 28.3, [place] % (Auto) 10.1 H, Eos % (Auto) 1.6, Baso % (Auto) 0.4, Absolute Neuts (auto) 4.9, Absolute Lymphs (auto) 2.35, Nucleated RBC % 0 11/02/19 05:00: Sodium 139, Potassium 4.7, Chloride 106, Carbon Dioxide 29.0, Anion Gap 4 L, BUN 43 H, Creatinine 1.07 H, Estim Creat Clear Calc 40.08, Est GFR (MDRD) Af Amer 66, Est GFR (MDRD) Non-Af 55 L, BUN/Creatinine Ratio 40.2 H, Glucose 132 H, Calcium 8.3 L, Total Bilirubin 0.30, AST 32, ALT 47, Alkaline Phosphatase 75, Total Creatine Kinase 83, Troponin I < 0.015, Total Protein 6.8, Albumin 3.1 L, Globulin 3.7, Albumin/Globulin Ratio 0.8 L 11/02/19 05:15: Ethyl Alcohol < 3.0 11/02/19 05:15: Lactic Acid 1.0 11/02/19 05:40: Urine Color Yellow, Urine Clarity Sl. Cloudy, Urine pH 5.0, Ur Specific [place] 1.020, Urine Protein 30 H, Urine Glucose (UA) Normal, Urine Ketones Negative, Urine Occult Blood Negative, Urine Nitrite Negative, Urine Bilirubin Negative, Urine Urobilinogen Normal, Ur Leukocyte Esterase 25 H, Urine RBC Pending, Urine WBC Pending, Ur Squamous Epith Cells Pending, Urine Bacteria Pending, Urine Mucus Pending Current Medications Sodium Chloride () 1,000 mls @ 150 mls/hr IV .Q6H40M TRI Last Admin: 11/02/19 05:15 Dose: 150 mls/hr Documented by: Assessment/Plan All Active Problems (Last Reviewed 04/20/18 @ 13:56 by Itzel Lentz) Ovarian cyst (Acute) Diverticulitis large intestine (Acute) C. difficile colitis (Acute) Syncope (Acute) Transient hypotension (Acute) Mild dehydration (Acute) Skin lesion of left arm (Acute) Acute colitis (Acute) Chronic Problems (Last Reviewed 04/20/18 @ 13:56 by Itzel Lentz) Diverticulosis (Chronic) Type II diabetes mellitus (Chronic) Fibromyalgia (Chronic) Tobacco dependence syndrome (Chronic) Osteoporosis (Chronic) Lupus erythematosus (Chronic) COPD (chronic obstructive pulmonary disease) (Chronic) History of cerebral aneurysm repair (Chronic) Status post clipping Plan 1. Patient found unconscious/etiology unknown?suspect dehydration?admit patient to progressive care unit for observation, patient is DNR comfort care arrest per discussion with her , IV normal saline at 125 cc/h, plan for repeat BMP CBC tomorrow 2. Diabetes?monitor blood sugars before meals at bedtime, continue routine home medications for now 3. Nicotine abuse disorder?we will add NicoDerm patch 21 g 4. COPD?continue routine home maintenance medications 5. DVT prophylaxis?low molecular weight heparin OBSV E&M: 49363 Initial observation care L2
[2019-11-02 06:46] LABS: White Blood Cells 0-5 SEEN /hpf (0-5)
[2019-11-02 06:47] LABS: Amorphous Sediment 2+; Hyaline Cast 0-5 SEEN /lpf (0-5); Mucous, Urine 1+ /hpf (<or=2+)
[2019-11-02] MEDS: 0.9% Normal Saline 1,000 ML 125 ML IV (08:10)
[2019-11-02] MEDS: 0.9% Saline Lock 10 ML Syringe IV (08:10)
[2019-11-02 08:15] LABS: Bedside Glucose 102 mg/dL (70-110)
[2019-11-02] MEDS: Baclofen 10 MG Tablet PO (10:08)
[2019-11-02] MEDS: Gabapentin 300 MG Capsule PO (10:08)
[2019-11-02] MEDS: Aspirin 81 MG TAB.CHEW PO (10:08)
[2019-11-02] MEDS: OLANZapine 2.5 MG Tablet PO (10:08)
[2019-11-02] MEDS: OXcarbazepine 300 MG Tablet PO (10:09)
[2019-11-02] MEDS: Albuterol 2.5 MG/3 ML VIAL.NEB. INHALATION (14:00)
--- NOTE | 2019-11-02 15:29 | PCM.DC ---
- Discharge Diagnoses Current Active Problems: Current Active and Chronic Problems (Last Reviewed 04/20/18 @ 13:56 by Itzel Lentz) Syncope (Acute) Transient hypotension (Acute) Mild dehydration (Acute) You will use the following diet at home:: No restrictions Your food should be the consistency of: Regular Your liquids should be the consistency of: Regular/Thin Discharge Activity: Return to Normal Activity Weight Bearing Status: Full weight bearing Allergies/Adverse Reactions: Allergies celecoxib [From Celebrex] Allergy (Verified 04/20/18 13:55) Swelling fluoxetine Allergy (Verified 11/02/19 05:00) PT UNSURE OF REACTION hydrocodone Allergy (Verified 11/02/19 05:01) PT UNSURE OF REACTION pneumococcal 23-valent polysacchari [From Pneumovax 23] Allergy (Verified 11/02/19 05:02) PT UNSURE OF REACTION pneumococcal vaccine [Pneumococcal Vaccine] Allergy (Verified 04/20/18 13:55) Rash ranitidine Allergy (Verified 11/02/19 05:01) PT UNSURE OF REACTION rofecoxib Allergy (Verified 11/02/19 05:01) PT UNSURE OF REACTION valdecoxib Allergy (Verified 11/02/19 05:00) PT UNSURE OF REACTION bee stings Allergy (Severe, Uncoded 04/20/18 13:55) septic Medications to take at Discharge Albuterol Inhaler [Ventolin Hfa] 1 - 2 puff INHALATION Q6H PRN PRN 03/22/14 Baclofen 10 mg PO DAILY 03/22/14 Diazepam [Valium] 10 mg PO BID 03/22/14 Aspirin [Aspirin, Baby] 81 mg PO DAILY@0800 #90 tab.chew 03/24/14 Atorvastatin Calcium [Lipitor] 40 mg PO QHS #90 tab 03/24/14 budesonide-formoterol HFA 160 mcg-4.5 mcg/actuation aerosol inhaler 1 puff INHALATION DAILY 12/26/17 ergocalciferol (vitamin D2) 1,250 mcg (50,000 unit) capsule 50,000 unit PO LOPEZ cap 12/26/17 paroxetine HCl 10 mg tablet 20 mg PO QHS tab 12/26/17 Denosumab [Prolia] 60 mg SQ QMONTH 11/02/19 Donepezil HCl [Aricept] 10 mg PO QHS #30 tab 11/02/19 Levetiracetam [Keppra] 500 mg PO BID #1 tablet 11/02/19 Mirtazapine [Remeron] 15 mg PO QHS #30 tab 11/02/19 The following prescriptions were given: Donepezil HCl [Aricept] 10 mg PO QHS #30 tab Transmission Status: Pending to [id number] Levetiracetam [Keppra] 500 mg PO BID #1 tablet Mirtazapine [Remeron] 15 mg PO QHS #30 tab Transmission Status: Pending to [facility] Primary Care Physician: Kellen Jean DO [Primary Care Provider] - Please follow up with your Primary Care Physician in: in 2 weeks Test Results: Test results from this visit will be discussed in further detail at your follow-up appointment, if applicable.
--- NOTE | 2019-11-03 17:22 | DS.PCM_ITS ---
Discharge Date and Diagnosis Date of Admission: 11/02/19 Date of Discharge: 11/02/19 - Primary Discharge Diagnosis Acute Problems: #1 breakthrough seizure #2 chronic seizure disorder #3 cerebrovascular disease #4 type 2 diabetes #5 chronic obstructive pulmonary disease - Secondary Discharge Diagnosis Chronic Problems: Chronic Problems (Last Reviewed 04/20/18 @ 13:56 by Itzel Lentz) Diverticulosis (Chronic) Type II diabetes mellitus (Chronic) Fibromyalgia (Chronic) Tobacco dependence syndrome (Chronic) Osteoporosis (Chronic) Lupus erythematosus (Chronic) COPD (chronic obstructive pulmonary disease) (Chronic) History of cerebral aneurysm repair (Chronic) Status post clipping Hospital Course and Treatment Operations: None Procedures: None Summary of Care Provided: The patient is a 64 year old F who was seen in the emergency room at [facility] after being brought in after she was found unresponsive sit ting in a chair in her garage where she went to smoke and watch a movie. She was found sitting in her chair with her head back unconscious, she was able to be aroused, squad was called and initially her blood pressure was low when they first evaluated her. Patient denied any injury or distress. Evaluation in the emergency room included labs which showed a mild elevation of her BUN and creatinine, CT of the brain showed evidence of multiple prior infarctions. No new infarction was noted. Patient was placed in observation status on PCU and observed on telemetry. Patient had no arrhythmias and I had multiple discussions with the patient and her daughter, it appears that the patient was on multiple medications and had a history of prior seizure disorder. Her seizure medication had been changed a few weeks prior. She was seen and examined on 11/02/2019: On examination she appeared in good health and spirits, she does not appear to be in any distress. Vital signs as documented. Skin warm and dry and without overt rashes. Neck without JVD, thyroid appears normal, trachea is midline, neck is supple. Lungs clear, normal air movement was noted. Heart exam notable for regular rhythm, normal sounds and absence of murmurs, rubs or gallops. Abdomen unremarkable and without evidence of organomegaly, masses, or abdominal aortic enlargement, bowel sounds are present in all 4 quadrants, no abdominal tenderness was noted. Extremities nonedematous, no cyanosis was noted, no clubbing was noted. Neuro: Cranial nerves II through XII are grossly intact, no focal motor deficits were noted, sensation to light touch and pinprick is intact, motor exam 5/5 throughout. Psych: Patient is alert and oriented x3, she does not appear anxious or depressed, she does not appear agitated. I feel the patient had a breakthrough seizure, I went over the patient's medications with her daughter who is her POA, her medications were adjusted at the time of discharge, she appeared to be medically stable for discharge on 11/02/2019. - Physical Exam Vitals/I&O's: Vital Signs Temp Pulse Resp BP Pulse Ox 97.4 F L 79 16 109/62 94 11/02/19 12:04 11/02/19 14:00 11/02/19 14:00 11/02/19 12:04 11/02/19 12:04 Oxygen Delivery Method Room Air Weight: 48.2 kg Body Mass Index (BMI) 20.0 Finger Stick Blood Glucose 89 Intake and Output for Last 24 Hours 11/01/19 11/02/19 11/03/19 23:59 23:59 23:59 Intake Total 1501.25 / 1501.25 Balance 1501.25 / 1501.25 Discharge Activity: Return to Normal Activity Weight Bearing Status: Full weight bearing Home Medications: Medications to take at Discharge Albuterol Inhaler [Ventolin Hfa] 1 - 2 puff INHALATION Q6H PRN PRN 03/22/14 Baclofen 10 mg PO DAILY 03/22/14 Diazepam [Valium] 10 mg PO BID 03/22/14 Aspirin [Aspirin, Baby] 81 mg PO DAILY@0800 #90 tab.chew 03/24/14 Atorvastatin Calcium [Lipitor] 40 mg PO QHS #90 tab 03/24/14 budesonide-formoterol HFA 160 mcg-4.5 mcg/actuation aerosol inhaler 1 puff INHALATION DAILY 12/26/17 ergocalciferol (vitamin D2) 1,250 mcg (50,000 unit) capsule 50,000 unit PO LOPEZ cap 12/26/17 paroxetine HCl 10 mg tablet 20 mg PO QHS tab 12/26/17 Denosumab [Prolia] 60 mg SQ QMONTH 11/02/19 Donepezil HCl [Aricept] 10 mg PO QHS #30 tab 11/02/19 Levetiracetam [Keppra] 500 mg PO BID #1 tab 11/02/19 Mirtazapine [Remeron] 15 mg PO QHS #30 tab 11/02/19 Following Prescrptions Were Given to Patient: Donepezil HCl [Aricept] 10 mg PO QHS #30 tab [facility] Levetiracetam [Keppra] 500 mg PO BID #1 tab Mirtazapine [Remeron] 15 mg PO QHS #30 tab Transmission Status: [id number] Primary Care Physician: Kellen Jean DO [Primary Care Provider] - Please follow up with your Primary Care Physician in: in 2 weeks Disposition: Home Minutes spent on discharge:: 30 Patient Condition:: Stable Medical Necessity - Tobacco Use Smoking Status: Current every day smoker Meaningful Use Info Meaningful Use Diagnoses (Choose all that apply): None applicable OBSV E&M: 69193 Observ/hosp same date L3
== END 2019-11-02 15:30 | disposition home or self-care (01) ==
LOC: ED 05:38 → PCU 07:12
PROVIDERS: Admitting Provider Family Medicine; Emergency Provider Emergency Medicine; PCP Internal Medicine; Visit Provider Internal Medicine
DX: G40.909 Epilepsy, unspecified, not intractable, without status epilepticus (principal); E11.9 Type 2 diabetes mellitus without complications; J44.9 Chronic obstructive pulmonary disease, unspecified; I69.393 Ataxia following cerebral infarction; M79.7 Fibromyalgia; L93.0 Discoid lupus erythematosus; F17.200 Nicotine dependence, unspecified, uncomplicated; E86.0 Dehydration; R55 Syncope and collapse; K58.9 Irritable bowel syndrome, unspecified; Z79.899 Other long term (current) drug therapy; Z79.82 Long term (current) use of aspirin
CPT/HCPCS: 70450; 71045; 80053; 80320; 81001; 82550; 82962; 83605; 84484; 85025; 87040; 93005; 94640; 96360; 96361; 97166; 99218; 99285; J7030; A4216; G0378; G0480

== ENCOUNTER → 2020-01-12 16:30 | Outpatient (CLI) | payer MEDICARE, SELFPAY ==
--- NOTE | 2020-01-12 13:30 | LES_PTH ---
PATIENT: GLADYS LAINEZ LOC: [facility] U#:[id number] AGE/SX: 69/F ROOM: RE01/12/[address]: Dr. Brady Santiago MD : 1955 BED: DIS: SPEC #: [id number] RECD: 01/12/20 16:30 STATUS: KIANA LENNY #: [id number] GARY: 01/12/20 13:[address]: Brady Santiago DEPT: SURGICAL PATHOLOGY RECD BY: Sarath Mathis ENTERED: 01/13/20 10:02 SP TYPE: Lesion OTHR DR: Dr. Kellen Jean, DO Tissues: Skin of forehead Procedures: Surgery Specimen Level IV HEADER OPERATION: Excision right amish lesion PRE-OP DIAGNOSIS: Neoplasm face TISSUE SUBMITTED: Right amish tissue MICROSCOPIC DIAGNOSIS Skin of right amish region, biopsy: Basal cell carcinoma, superficial, nodular and ulcerated. AM:trinh 01/14/20 COMMENT The lesion measures 5 millimeters in greatest dimension and is completely excised in the planes examined. MICROSCOPIC DESCRIPTION Slides are reviewed. GROSS DESCRIPTION Received in fixative is one container labeled with the patient's name and designated right amish lesion. The specimen consists of an ellipse of light falcon excised skin measuring 2.5 x 1.1 cm and a depth of excision measuring 0.3 cm. The cutaneous surface contains a light pink, elevated lesion measuring 7 mm in greatest dimension. The specimen is inked, serially sectioned and totally submitted in one cassette. / AM:trinh 01/13/20 TC:0 CPT: 79561
== END ==
PROVIDERS: PCP Internal Medicine; Referring Provider Surgery; Visit Provider Surgery
DX: D48.7 Neoplasm of uncertain behavior of other specified sites (principal)
CPT/HCPCS: 88305

== ENCOUNTER → 2020-07-05 11:19 | Outpatient (CLI) | payer MEDICARE, SELFPAY ==
[2020-06-06 13:24] VITALS: BMI 21.7
--- NOTE | 2020-07-05 11:23 | BI_ITS ---
MAMMOGRAPHY - BILATERAL SCREENING REASON FOR EXAM: Female, 65 years old. Routine annual screening examination. PERTINENT HISTORY: Non-contributory. TECHNIQUE: Digital bilateral breast joie (3D mammographic acquisition) in the CC and MLO projections. 2-D mediolateral oblique (MLO) and craniocaudad (CC) views of both breasts were obtained. CAD: Full Field Digital Mammography with Computer Added Detection was performed. COMPARISON: Comparison is made with prior study dated 11/16/2019 and 07/09/2016. FINDINGS: Breast Composition: The breasts are heterogeneously dense, which may obscure small masses. There are no dominant masses or suspicious calcifications. No other significant abnormalities are identified. There has been no significant change since the prior study. BI/SCRN MAMM (CAD)W/JOIE BILAT IMPRESSION: Stable bilateral screening mammogram. Yearly follow-up mammogram recommended. (A) ASSESSMENT CATEGORY: BIRADS Category 1: Negative. A letter regarding these results will be sent to the patient by the facility within 30 days. Approximately 10% of breast cancers are not detected by mammography. A normal mammogram should not delay biopsy of a clinically suspicious abnormality. [id number] Electronically Signed: Steve Martinez MD at 12:16 EST , Service support ,
== END ==
PROVIDERS: PCP Internal Medicine; Referring Provider Internal Medicine; Visit Provider Internal Medicine
DX: Z12.31 Encounter for screening mammogram for malignant neoplasm of breast (principal)
CPT/HCPCS: 77063; 77067

== ENCOUNTER → 2020-07-25 14:31 | Outpatient (CLI) | payer MEDICARE, SELFPAY ==
[2020-06-06 13:24] VITALS: BMI 21.7
--- NOTE | 2020-07-25 14:35 | CT_ITS ---
STUDY: CT ABDOMEN AND PELVIS WITH AND WITHOUT CONTRAST REASON FOR EXAM: Female, 65 years old. GROSS HEMATURIA. History of lupus. RADIATION DOSAGE (If Supplied By Facility): CTDIvol = ( 9.13 ) mGy, DLP = ( 1090.7 ) mGycm TECHNIQUE: Transaxial images were obtained from the dome of the diaphragm to the symphysis pubis without oral contrast. IV 100mL Isovue-300 was administered. Sagittal and coronal images were reconstructed. Individualized dose optimization techniques were used for this CT. COMPARISON: Comparison is made with prior study dated 11/17/2017. FINDINGS: The visualized lung bases are unremarkable. The visualized portions of the heart are within normal limits. Stable 1.1 cm x 1.1 cm cyst in the right lobe of the liver. Normal gallbladder and extrahepatic biliary system. Stable faint linear calcification along the lateral aspect of the spleen. This could represent an old healed splenic hematoma. Normal pancreas. Normal bilateral adrenal glands. Normal right kidney. Normal left kidney. Normal visualized stomach. Normal small intestine. Normal colon. The appendix is visualized and appears normal. There is diffuse atherosclerotic calcification of the abdominal aorta, without a demonstrated aneurysm. Normal inferior vena cava. There is borderline retroperitoneal lymphadenopathy with enlarged nodes no greater than 10mm in the short axis diameter. Normal urinary bladder. Bilateral tubal ligation clips are seen. Status post hysterectomy. Normal abdominal wall. There are diffuse degenerative changes of the visualized lumbar spine. CT/CT Abd/Pelvis W/WO Contrast IMPRESSION: No evidence of a ureteral obstruction. Stable hepatic cyst. Electronically Signed: Steve Martinez MD at 19:28 EDT , Service support ,
[2020-07-25 14:56] LABS: CREATININE FINGERSTICK 1.2 mg/dL (0.55-1.02)
== END ==
PROVIDERS: PCP Internal Medicine; Referring Provider Urology; Visit Provider Urology
DX: R31.0 Gross hematuria (principal); N39.0 Urinary tract infection, site not specified
CPT/HCPCS: 74178; Q9967

== ENCOUNTER → 2020-09-04 14:06 | Outpatient (CLI) | payer MEDICARE, SELFPAY ==
[2020-06-06 13:24] VITALS: BMI 21.7
--- NOTE | 2020-09-04 14:12 | US_ITS ---
STUDY: SUPERFICIAL ULTRASOUND - BILATERAL CERVICAL MASSES. REASON FOR EXAM: Female, 65 years old. NECK MASS TECHNIQUE: A superficial ultrasound was performed with real-time and static malone-scale imaging. COMPARISON: None. FINDINGS: There is a 1.7 cm x 0.5 cm benign-appearing corresponded to the palpable abnormality. There is also evidence of a 9 mm x 7 mm x 3 mm benign-appearing lymph node corresponding to the left palpable abnormality. US/Head/Neck Soft Tissue IMPRESSION: The abnormality corresponds to benign appearing lymph nodes. Electronically Signed: Steve Martinez MD at 15:22 EDT , Service support ,
== END ==
PROVIDERS: PCP Internal Medicine; Referring Provider Internal Medicine; Visit Provider Internal Medicine
DX: R22.1 Localized swelling, mass and lump, neck (principal)
CPT/HCPCS: 76536

== ENCOUNTER → 2021-02-26 13:07 | Outpatient (CLI) | payer MEDICARE, SELFPAY ==
--- NOTE | 2021-02-26 13:17 | CT_ITS ---
STUDY: RIGHT UPPER EXTREMITY CT SCAN WITHOUT CONTRAST REASON FOR EXAM: Female, 65 years old. CONTUSION RADIATION DOSAGE (If Supplied By Facility): CTDIvol = ( 9.46 ) mGy, DLP = ( 241.98 ) mGycm. Individualized dose optimization techniques were used for this CT.? TECHNIQUE: Axial multidetector CT scan of the right shoulder. Coronal and sagittal reformatted images. COMPARISON: Chest CT dated 09/06/2019. FINDINGS: Evidence of age-indeterminate Hill-Sachs and reverse Hill-Sachs deformities (axial image 24 series 3). Tiny bone fragment at the anterior joint space (axial images 24 and 26 series 3 and axial image 35 series 3). Humeral head mantle osteophyte. No acute dislocation. No acute bone destruction. Moderate glenohumeral joint arthrosis. Moderate acromioclavicular joint arthrosis. Anterior interval appears preserved. Normal rotator cuff muscle bulk. Normal chest wall muscles. Normal right upper extremity muscles. Small volume glenohumeral joint effusion. No obvious subacromial subdeltoid fluid. Stable right upper lung 4 mm glass nodule (axial image 36 series 3). Ribs intact. CT/Extremity Upper without Contra IMPRESSION: Age-indeterminate Hill-Sachs and reverse Hill-Sachs deformities (likely related to previous dislocations) Moderate glenohumeral and AC joint arthrosis Small volume glenohumeral joint effusion with tiny loose bodies/bone fragments Stable 4 mm right upper lung ground glass nodule ([address] follow-up recommended) Electronically Signed: Dustin Dukes DO at 12:46 EDT Tel , Service support ,
== END ==
PROVIDERS: PCP Internal Medicine; Visit Provider Physician Assistant
DX: S40.011A Contusion of right shoulder, initial encounter (principal)
CPT/HCPCS: 73200

== ENCOUNTER → 2022-03-18 | Outpatient (CLI) | payer MEDICARE, SELFPAY ==
--- NOTE | 2022-03-18 13:15 | CT_ITS ---
STUDY: LOW DOSE CT LUNG CANCER SCREENING REASON FOR EXAM: Female, 66 years old. COPD. Former smoker. The patient smoked 1 pack per day for 50 years. RADIATION DOSAGE (If Supplied By Facility): CTDIvol = ( 1.59 ) mGy, DLP = ( 49.63 ) mGycm TECHNIQUE: No contrast was administered. Low dose technique was utilized (average mAS-38 and kVp 120). 1.25 mm axial source images with a slice interval of 1.25-mm were reconstructed in lung windows. 2.5 mm axial source images with a slice interval of 2.5-mm were reconstructed in lung windows. 5.0 mm axial source images with a slice interval of 5.0-mm were reconstructed in soft tissue windows. COMPARISON: Comparison is made with prior study dated 09/06/2019. NODULES: 2 mm noncalcified nodule in the peripheral lateral aspect of the right upper lobe as seen on axial image #33. This is unchanged. Stable 4 mm groundglass appearing nodule in the medial left upper lobe as seen on axial image #60. Emphysema: Hyperinflation. Emphysematous changes. Aorta: Mild degree of calcific plaques at the level of the aortic arch. CORONARY ARTERIES: Coronary artery calcification is seen. Heart: Unremarkable. Pulmonary artery: Unremarkable Mediastinal nodes: Small benign-appearing mediastinal lymph nodes. Other chest and abdominal findings: CT/Low Dose CT Lung Screening IMPRESSION: Lung-RADS category 2 - Continue annual screening with LDCT in 12 months. IMPORTANT NOTES FOR USE: ACR Lung-RADS Version 1.1 Assessment Categories Release Date: 2018 Category: Coded 0-4 bases on nodule(s) with highest degree of suspicion. Negative screen is defined as categories 1 and 2; a positive screen is defined as categories 3 and 4. Category 3 and 4A nodules that are unchanged on interval CT should be coded as category 2, and individuals returned to screening in 12 months. Category 4X: Category 3 or 4 nodules with additional imaging findings that increase the suspicion of lung cancer, such as spiculation, GGN that doubles in size in 1 year, enlarged lymph notes, etc. Category Modifiers: S (significant finding unrelated to lung cancer) Electronically Signed: Steve Martinez MD at 15:02 EST ,
== END | disposition home or self-care (01) ==
PROVIDERS: PCP Internal Medicine; Referring Provider Internal Medicine; Visit Provider Internal Medicine
DX: J44.9 Chronic obstructive pulmonary disease, unspecified (principal); Z87.891 Personal history of nicotine dependence
CPT/HCPCS: 71271

== ENCOUNTER → 2022-03-26 | Outpatient (CLI) | payer MEDICARE, SELFPAY ==
--- NOTE | 2022-03-26 15:09 | BI_ITS ---
MAMMOGRAPHY - BILATERAL SCREENING REASON FOR EXAM: Female, 66 years old. Routine annual screening examination. PERTINENT HISTORY: Aunt with breast cancer. TECHNIQUE: Digital bilateral breast joie (3D mammographic acquisition) in the CC and MLO projections. 2-D mediolateral oblique (MLO) and craniocaudad (CC) views of both breasts were obtained. CAD: Full Field Digital Mammography with Computer Added Detection was performed. COMPARISON: 07/05/2020, 05/18/2019. FINDINGS: Breast Composition: The breasts are heterogeneously dense, which may obscure small masses. There are no dominant masses or suspicious calcifications. No other significant abnormalities are identified. There has been no significant change since the prior study. BI/SCRN MAMM (CAD)W/JOIE BILAT IMPRESSION: Stable bilateral screening mammogram. Yearly follow-up mammogram recommended. (A) ASSESSMENT CATEGORY: BIRADS Category 1: Negative. A letter regarding these results will be sent to the patient by the facility within 30 days. Approximately 10% of breast cancers are not detected by mammography. A normal mammogram should not delay biopsy of a clinically suspicious abnormality. Electronically Signed: Berto Cheng, at 10:40 EST ,
--- NOTE | 2022-03-26 15:20 | BD_ITS ---
STUDY: DUAL ENERGY X-RAY ABSORPTIOMETRY / DXA REASON FOR EXAM: Female, 66 years old. [id number] TECHNIQUE: Bone Mineral Density (BMD) measurements of lumbar spine and left hip were obtained. COMPARISON: Comparison is made with prior study dated 09/21/2019. FINDINGS: Lumbar Spine (L1-L4): g/cm2 (0.777) / T-score (-2.7) / Z-score (-0.8) Findings are suggestive of osteoporosis with a high fracture risk. Left Femur Total: g/cm2 (0.548) / T-score (-3.2) / Z-score (-1.9) Left Femoral Neck: g/cm2 (0.454) / T-score (-3.6) / Z-score (-1.9) The T-Scores on the most recent prior examination were: Lumbar Spine (L1-L4): There has been worsening of bone density since the previous examination. Left Femur Total: which represents an improvement of 6.9%. BD/Dexa Bone Density Study IMPRESSION: The patient is considered osteoporotic as outlined below according to World Saurabh Organization (WHO) criteria with a high fracture risk. There has been worsening of bone density since the previous examination. Reference Information: The T-score is the number of standard deviations above or below the standard which is normal for young adults at their peak bone mineral density. The World Health Organization (WHO) interprets the T-scores as follows: Above -1 Normal bone density Between -1 and -2.5 Osteopenia Equal to / or below -2.5 Osteoporosis As a practical clinical guideline, osteopenia may be graded as follows: Mild -1 through -1.5 Moderate -1.6 through -2.0 Severe -2.1 through -2.4 The Z-score is the number of standard deviations above or below age-matched controls. A Z-score of less than -1.5 would be considered abnormal. References: 1. NIH Osteoporosis and Related Bone Diseases www osteo.org 2. International Society for Clinical Densitometry www iscd.org 3. National Osteoporosis Foundation www nof.org Electronically Signed: Steve Martinez MD at 10:45 EST ,
== END | disposition home or self-care (01) ==
LOC: OPBI 15:06
PROVIDERS: PCP Internal Medicine; Referring Provider Internal Medicine; Visit Provider Internal Medicine
DX: Z12.31 Encounter for screening mammogram for malignant neoplasm of breast (principal); Z78.0 Asymptomatic menopausal state
CPT/HCPCS: 77063; 77067; 77080

== ENCOUNTER → 2023-04-01 | Outpatient (CLI) | payer MEDICARE, SELFPAY ==
--- NOTE | 2023-04-01 13:02 | BI_ITS ---
MAMMOGRAPHY - BILATERAL SCREENING REASON FOR EXAM: Female, 67 years old. Routine annual screening examination. PERTINENT HISTORY: Sister with breast cancer. Aunts with breast cancer. TECHNIQUE: Digital bilateral breast joie (3D mammographic acquisition) in the CC and MLO projections. 2-D mediolateral oblique (MLO) and craniocaudad (CC) views of both breasts were obtained. CAD: Full Field Digital Mammography with Computer Added Detection was performed. COMPARISON: Comparison is made with prior study dated March 26, 2022 and July 05, 2020. FINDINGS: Breast Composition: The breasts are heterogeneously dense, which may obscure small masses. There are no dominant masses or suspicious calcifications. No other significant abnormalities are identified. There has been no significant change since the prior study. BI/SCRN MAMM (CAD)W/JOIE BILAT IMPRESSION: Stable bilateral screening mammogram. Yearly follow-up mammogram recommended. (A) ASSESSMENT CATEGORY: BIRADS Category 1: Negative. A letter regarding these results will be sent to the patient by the facility within 30 days. Approximately 10% of breast cancers are not detected by mammography. A normal mammogram should not delay biopsy of a clinically suspicious abnormality. [id number] Electronically Signed: Steve Martinez MD at 15:41 EST ,
== END | disposition home or self-care (01) ==
PROVIDERS: PCP Internal Medicine; Referring Provider Internal Medicine; Visit Provider Internal Medicine
DX: Z12.31 Encounter for screening mammogram for malignant neoplasm of breast (principal)
CPT/HCPCS: 77063; 77067

== ENCOUNTER → 2023-09-05 | Outpatient (CLI) | payer MEDICARE, SELFPAY ==
--- NOTE | 2023-09-05 13:09 | CT_ITS ---
STUDY: LOW DOSE CT LUNG CANCER SCREENING REASON FOR EXAM: Female, 68 years old. Patient cig. smoker, 1/2 pack a day RADIATION DOSAGE (If Supplied By Facility): CTDIvol = ( 2.01 ) mGy, DLP = ( 65.70 ) mGycm TECHNIQUE: No contrast was administered. Low dose technique was utilized (average mAS-38 and kVp 120). 1.25 mm axial source images with a slice interval of 1.25-mm were reconstructed in lung windows. 2.5 mm axial source images with a slice interval of 2.5-mm were reconstructed in lung windows. 5.0 mm axial source images with a slice interval of 5.0-mm were reconstructed in soft tissue windows. COMPARISON: Comparison is made with prior study dated March 18, 2022. NODULES: The previously seen focal area of groundglass nodular appearance in the left upper lobe has increased in size. It presently measures 7.2 mm. Stable focal area of groundglass appearance in the posterior medial aspect of the left upper lobe as seen on axial image #68. Stable 2 mm noncalcified nodule in the peripheral lateral aspect of the right upper lobe. Emphysema: Stable hyperinflation and emphysematous changes. Endobronchial lesion: None Aorta: Atherosclerotic plaque formation of the aortic arch. CORONARY ARTERIES: Coronary artery calcification is seen. Heart: Unremarkable Pulmonary artery: Unremarkable Mediastinal nodes: Small benign-appearing mediastinal lymph nodes. Other chest and abdominal findings: CT/Low Dose CT Lung Screening IMPRESSION: Lung-RADS category 2 - Continue annual screening with LDCT in 12 months. IMPORTANT NOTES FOR USE: ACR Lung-RADS Version 1.1 Assessment Categories Release Date: 2018 Category: Coded 0-4 bases on nodule(s) with highest degree of suspicion. Negative screen is defined as categories 1 and 2; a positive screen is defined as categories 3 and 4. Category 3 and 4A nodules that are unchanged on interval CT should be coded as category 2, and individuals returned to screening in 12 months. Category 4X: Category 3 or 4 nodules with additional imaging findings that increase the suspicion of lung cancer, such as spiculation, GGN that doubles in size in 1 year, enlarged lymph notes, etc. Category Modifiers: S (significant finding unrelated to lung cancer) Electronically Signed: Steve Martinez MD at 14:48 EDT ,
== END | disposition home or self-care (01) ==
PROVIDERS: PCP Internal Medicine; Referring Provider Internal Medicine; Visit Provider Internal Medicine
DX: Z12.2 Encounter for screening for malignant neoplasm of respiratory organs (principal); F17.210 Nicotine dependence, cigarettes, uncomplicated
CPT/HCPCS: 71271

== ENCOUNTER 2023-09-21 07:29 | Emergency (ER) | payer MEDICARE, SELFPAY ==
[2023-09-21 07:30] VITALS: BP 162/88; PULSE 78; RESP 16; TEMP 36.6; O2SAT 98; BMI 26.0
--- NOTE | 2023-09-21 07:42 | RAD_ITS ---
EXAM: XR LEFT WRIST COMPLETE, 3 OR MORE VIEWS CLINICAL INDICATION: Trauma injury. TECHNIQUE: Frontal, lateral and oblique views of the left wrist. COMPARISON: No relevant prior studies available. FINDINGS: BONES/JOINTS: Diffuse osteopenia. Acute fracture across the distal radial metaphyses. The fracture fragment in the dorsal surface is best visualized in the lateral view. Preservation of the joint space. No sclerotic or destructive changes observed. SOFT TISSUES: There is soft tissue swelling around the wrist. No radiopaque foreign body. RAD/Wrist min 3 Views IMPRESSION: Acute fracture across the distal radial metaphyses with a more obvious fracture fragment in the dorsal surface of the left wrist in the lateral view. Electronically Signed: Matti Persaud MD at 8:11 EDT ,
--- NOTE | 2023-09-21 07:55 | EDS_ITS ---
HPI History of Present Illness Chief Complaint: Upper Extremity Injury Informant: patient Onset/Context/Timing Onset: Yesterday Context: Sudden Onset Timing: Continuous Quality of Pain: Aching Location: L wrist Current Severity: Moderate Maximum Severity: Moderate Worsened by: movement Relieved by: remaining still Associated Symptoms Associated Symptoms: Positive for Loss of Funtion; Negative for Parasthesia or Weakness Narrative Narrative: Patient fell forward onto her stomach with her left hand beneath her, injuring her left wrist. When she fell was because she was having episode of vertigo which she has chronically. She does not always fall with them. She did not injure anything else. [id number]. No recent illness or prodromal symptoms otherwise. [facility] Medical History (Updated 09/21/23 @ 08:[address] Renny Soares MD) Skin lesions Skin cancer of forehead Skin lesion of left arm Diverticulosis Acute colitis Diverticulitis IBS (irritable bowel syndrome) Acute ischemic stroke Type II diabetes mellitus Fibromyalgia Tobacco dependence syndrome Osteoporosis Lupus erythematosus COPD (chronic obstructive pulmonary disease) Home Medications ?Medication ?Instructions ?Recorded ?Last Taken ?Type albuterol sulfate 90 mcg/actuation 1 - 2 puff inhalation Q6H PRN PRN 03/22/14 Unknown History aerosol inhaler Sob &/Or Wheezing baclofen 10 mg tablet 10 mg PO DAILY 03/22/14 01/20/18 05:00 History 10 MG diazepam 10 mg tablet 10 mg PO BID 03/22/14 Unknown History aspirin 81 mg chewable tablet 81 mg PO DAILY@0800 ##90 03/24/14 02/10/18 Rx atorvastatin 40 mg tablet 40 mg PO QHS #90 tabs 03/24/14 Unknown Rx budesonide-formoterol HFA 160 1 puff inhalation DAILY 12/26/17 02/19/18 07:00 History mcg-4.5 mcg/actuation aerosol inhaler (Symbicort) ergocalciferol (vitamin D2) 1,250 50,000 unit PO LOPEZ 12/26/17 Unknown History mcg (50,000 unit) capsule denosumab 60 mg/mL subcutaneous 60 mg SQ QMONTH 11/02/19 10/01/19 History syringe mirtazapine 15 mg tablet 15 mg PO QHS #30 tabs 11/02/19 Unknown Rx triamcinolone acetonide 0.1 % 1 applic topical BID 01/05/20 Unknown History topical ointment donepezil 5 mg tablet 5 mg PO DAILY 09/21/23 Unknown History levetiracetam 750 mg tablet 750 mg PO BID 09/21/23 Unknown History lisinopril 2.5 mg tablet 2.5 mg PO DAILY 09/21/23 Unknown History memantine 28 mg capsule 28 mg PO DAILY 09/21/23 Unknown History sprinkle,extended release 24hr oxycodone-acetaminophen 5 mg-325 1 tab PO Q6H PRN PRN Pain 3 days 09/21/23 Unknown Rx mg tablet #12 TABLETS paroxetine HCl 40 mg tablet 40 mg PO DAILY 09/21/23 Unknown History Allergy/AdvReac Type Severity Reaction Status Date / Time bee venom protein (honey bee) Allergy Severe Other Verified 12/21/21 14:38 celecoxib (From Celebrex) Allergy Swelling Verified 06/06/20 13:36 fluoxetine Allergy PT UNSURE Verified 06/06/20 13:36 OF REACTION hydrocodone Allergy PT UNSURE Verified 06/06/20 13:36 OF REACTION pneumococcal 23-valent Allergy PT UNSURE Verified 06/06/20 13:36 polysacchari (From Pneumovax OF REACTION 23) pneumococcal vaccine Allergy Rash Verified 06/06/20 13:36 (Pneumococcal Vaccine) ranitidine Allergy PT UNSURE Verified 06/06/20 13:36 OF REACTION rofecoxib Allergy PT UNSURE Verified 06/06/20 13:36 OF REACTION valdecoxib Allergy PT UNSURE Verified 06/06/20 13:36 OF REACTION Family History Aunt Asthma Father Heart disease Hypertension CVA (cerebral vascular accident) Uncle Diabetes Grandmother CVA (cerebral vascular accident) Surgical History History of squamous cell carcinoma excision History of carpal tunnel release History of tubal ligation History of cerebral aneurysm repair Social History Smoking Status: Current every day smoker alcohol intake: never substance use type: does not use ROS ROS ED Constitutional Constitutional ED: Denies chills or fever(s) Musculoskeletal Musculoskeletal: Reports extremity pain; Denies neck pain Integumentary Denies Abrasions, rash or wounds Neurologic Neurologic: Denies paresthesias or weakness EXAM Physical Exam Const Vital Signs: 09/21/23 07:30 Temperature 97.8 F Temperature Source Temporal Pulse Rate 78 Respiratory Rate 16 Blood Pressure 162/88 H Blood Pressure Mean 112 Pulse Ox 98 Oxygen Delivery Method Room Air Positive well nourished and well developed General Appearance ED: well developed and NAD Neck full ROM and supple Resp normal respiratory effort GI non-tender and non-distended Auscultation: normoactive bowel sounds Back/Spine normal ROM and normal to inspection Extremity Extremity Narrative: Bruising swelling limited range of motion about the dorsal and volar left wrist. There is tenderness at the distal radius especially. There is ecchymosis and swelling that goes into the proximal aspect of the left thumb as well as the area of the scaphoid but none of this area is tender. She has limited range of motion of the thumb because of pain in the wrist. She is having trouble pronate and supinating due to pain. There is no tenderness elsewhere in the hand or the elbow or the shoulder. The other 3 extremities move without any difficulty throughout without pain. Neuro oriented x3, no focal motor deficits and no sensory deficits noted Sensorium / Orientation: alert Psych mental status grossly normal and thought process normal Skin no wounds Rashes: no rashes MDM MDM MDM Narrative Medical decision making narrative: Three-view x-ray series of the left wrist on my interpretation shows an intra- articular fracture involving the distal radius. There is no significant angulation or major displacement of pieces, the displacement is minimal, and she is placed in a splint and given something for pain. She can follow-up with orthopedics she is established with orthopedics. There is quite a bit of bruising and swelling in the area of the scaphoid as well, difficult to evaluate the bone due to the swelling so we placed her in a thumb spica splint for now out of precaution. Procedures Upper Extremity Splints Upper Extremity Splint: Orthoglass (Short arm AP splint w/ thumb spica, neurovascularly intact distally after placement) Splint Fabrication: Fabricated Location: Left Discharge Plan Triage Chief Complaint: Upper Extremity Injury ED Provider: Renny Soares Dx/Rx/DC Orders Clinical Impression: Closed fracture of distal end of left radius Instructions: Distal Radius Fx, ED Splint Care, Fiberglass Prescriptions: New oxycodone-acetaminophen 5-325 mg tablet 1 tab PO Q6H PRN PRN (Reason: Pain) 3 Days Qty: 12 0RF No Action budesonide-formoterol [Symbicort] 160-4.5 mcg/actuation HFA aerosol inhaler 1 puff INHALATION DAILY triamcinolone acetonide 0.1 % ointment 1 applic TOPICAL BID baclofen 10 MG tablet 10 mg PO DAILY Patient Comments: spasms diazepam 10 MG tablet 10 mg PO BID Patient Comments: sleep albuterol sulfate 1 INHALER inhaler 1 - 2 puff INHALATION Q6H PRN PRN (Reason: Sob &/Or Wheezing) Patient Comments: copd atorvastatin 40 MG tablet 40 mg PO QHS Qty: 90 0RF Patient Comments: lowers cholesterol aspirin 81 MG tablet,chewable 81 mg PO DAILY@0800 Qty: 90 0RF Patient Comments: preventative for heart/stroke ergocalciferol (vitamin D2) 50,000 unit capsule 50,000 unit PO LOPEZ Patient Comments: supplement denosumab 60 MG/ML syringe 60 mg SQ QMONTH Rx Instructions: every 6 months. mirtazapine 15 MG tablet 15 mg PO QHS Qty: 30 0RF donepezil 5 mg tablet 5 mg PO DAILY levetiracetam 750 mg tablet 750 mg PO BID paroxetine HCl 40 mg tablet 40 mg PO DAILY lisinopril 2.5 mg tablet 2.5 mg PO DAILY memantine 28 mg capsule,sprinkle,ER 24hr 28 mg PO DAILY Primary Care Provider: Kellen Jean Referrals: Kellen Jean DO [Primary Care Provider] - Austin Perry MD [Med Staff - Active Staff] - As soon as possible (First appropriate provider) Print Language: Cameroonian Disposition Disposition: Home, Self Care
[2023-09-21] MEDS: oxyCODONE 5 MG Tablet PO (08:55)
== END 2023-09-21 09:20 | disposition home or self-care (01) ==
PROVIDERS: Emergency Provider Emergency Medicine; PCP Internal Medicine; Visit Provider Emergency Medicine
DX: S52.572A Other intraarticular fracture of lower end of left radius, initial encounter for closed fracture (principal); J44.9 Chronic obstructive pulmonary disease, unspecified; E11.9 Type 2 diabetes mellitus without complications; F17.200 Nicotine dependence, unspecified, uncomplicated; W19.XXXA Unspecified fall, initial encounter; Z86.73 Personal history of transient ischemic attack (TIA), and cerebral infarction without residual deficits
CPT/HCPCS: 29125; 73110; 99282

== ENCOUNTER 2024-03-20 20:29 | Emergency (ER) | payer MEDICARE, SELFPAY ==
[2024-03-20 20:31] VITALS: BP 87/53; BP 94/60; PULSE 106; RESP 17; TEMP 38.1; O2SAT 94
[2024-03-20 20:34] VITALS: BP 106/65; PULSE 99; RESP 25; TEMP 38.1; O2SAT 94
[2024-03-20 20:59] VITALS: BMI 26.2
--- NOTE | 2024-03-20 21:15 | EKG12_ITS ---
Test Reason : DYSRHYTHMIA Blood Pressure : */* mmHG Vent. Rate : 98 BPM Atrial Rate : 98 BPM P-R Int : 154 ms QRS Dur : 84 ms QT Int : 360 ms P-R-T Axes : 47 -11 54 degrees QTcB Int : 459 ms Normal sinus rhythm Cannot rule out Anterior infarct , age undetermined Abnormal ECG Confirmed by KELSI HECTOR, DIEGO ([id number]), communications editor LINNETTE VILLA ([id number]) on 03/22/2024 8:15:13 AM Referred By: Confirmed By: DIEGO DOLAN MD
--- NOTE | 2024-03-20 21:16 | CT_ITS ---
STUDY: CT BRAIN WITHOUT CONTRAST REASON FOR EXAM: Female, 68 years old. ams RADIATION DOSAGE (If Supplied By Facility): CTDIvol = ( 44.99 ) mGy, DLP = ( 846.73 ) mGycm TECHNIQUE: Transaxial CT imaging of the brain was performed without administration of intravenous contrast material. Individualized dose optimization techniques were used for this CT. COMPARISON: November 02, 2019. FINDINGS: Normal soft tissue structures. Postop change status post right frontotemporal craniotomy. Calcific plaquing of the cavernous carotids. Vertebrobasilar dolichoectasia consistent with systemic hypertension Mild atrophy and periventricular white matter ischemic changes. Normal basal ganglia and thalami. Normal brainstem. Old left cerebellar infarct. There are postsurgical changes at the [place] on the right consistent with aneurysm clipping. There is encephalomalacia in the right frontal lobe consistent with old infarct or postsurgical changes There is no intracranial hemorrhage. There are no findings of an acute ischemic infarction. Normal visualized paranasal sinuses. Postsurgical changes of the orbits. CT/Brain/Head without Contrast IMPRESSION: Status post right sided aneurysm clipping with probable postsurgical encephalomalacia in the right frontal lobe. Old left cerebellar infarct. Mild periventricular white matter ischemic changes. No evidence for acute bleed. If concern for acute infarct recommend follow-up studies Electronically Signed: Gama Dolan MD at 22:53 EST ,
[2024-03-20 21:31] VITALS: BP 111/63; PULSE 98; RESP 18; O2SAT 90
[2024-03-20 21:34] VITALS: BP 111/64; PULSE 89; RESP 20; TEMP 38.1; O2SAT 90; O2SAT 94
[2024-03-20 21:53] LABS: Absolute Lymphocyte Count 0.44 X10^3/uL (0.83-4.51); Absolute Neutrophil Count 5.7 X10^3/uL (2.0-7.7); Basophil# 0.02 X10^3/uL; Basophil% 0.3 % (0-1); Eosinophil# 0.06 X10^3/uL; Eosinophils% 0.9 % (0-5); Hematocrit 34.3 % (37-47); Hemoglobin 11.1 g/dL (12.0-15.0); Lymphocyte # 0.44 X10^3/ul (0.83-4.51); Lymphocyte % 6.3 % (19-41); Mean Corp Hgb Conc 32.4 g/dL (32-36); Mean Corpuscular Hgb 30.6 pg (27.0-32.0); Mean Corpuscular Volume 94.5 fL (81-99); Mean Platelet Vol. 9.6 fl (6.2-12.0); Monocyte# 0.74 X10^3/uL; Monocyte% 10.5 % (0-10); NRBC Flagged by Analyzer 0 % (0-5); Neutrophil # 5.74 X10^3/uL (2.7-7.7); Neutrophil % 81.7 % (47-70); POSITIVE DIFFERENTIAL YES; Platelet Count 176 K/mm3 (150-450); RBC Distribution Width CV 12.4 % (11.6-14.6); RBC Distribution Width SD 43.1 fl (35.1-43.9); Red Blood Count 3.63 M/mm3 (4.2-5.4)
--- NOTE | 2024-03-20 21:59 | EX.ED.DYSGE1 ---
HPI History of Present Illness Chief Complaint: General Illness Narrative Narrative: Patient is a 68-year-old female with past medical history of COPD, IBS, Alzheimer's, seizure, type 2 diabetes who presents to the emergency department with a chief complaint of increased fatigue, fever and low blood pressure. According to the significant other at bedside a week ago she had 7 teeth pulled and has been on amoxicillin for this and taking this as prescribed not missing any doses. He notes that she has been sleeping more than normal for herself and noted that she he checked her blood pressure and her temperature is noted that her low blood pressure and elevated temperature prompting him to bring her here further evaluation management. He states that he did give her Tylenol prior to leaving the house. [facility] Medical History Seizures Skin lesions Skin cancer of forehead Skin lesion of left arm Diverticulosis Acute colitis Diverticulitis IBS (irritable bowel syndrome) Acute ischemic stroke Type II diabetes mellitus Fibromyalgia Tobacco dependence syndrome Osteoporosis Lupus erythematosus COPD (chronic obstructive pulmonary disease) Home Medications ?Medication ?Instructions ?Recorded ?Last Taken ?Type albuterol sulfate 90 mcg/actuation 1 - 2 puff inhalation Q6H PRN PRN 03/22/14 Unknown History aerosol inhaler Sob &/Or Wheezing baclofen 10 mg tablet 10 mg PO DAILY 03/22/14 01/20/18 05:00 History 10 MG diazepam 10 mg tablet 10 mg PO QHS 03/22/14 Unknown History aspirin 81 mg chewable tablet 81 mg PO DAILY@0800 ##90 03/24/14 02/10/18 Rx atorvastatin 40 mg tablet 40 mg PO QHS #90 tabs 03/24/14 Unknown Rx budesonide-formoterol HFA 160 1 puff inhalation DAILY 12/26/17 02/19/18 07:00 History mcg-4.5 mcg/actuation aerosol inhaler (Symbicort) ergocalciferol (vitamin D2) 1,250 50,000 unit PO LOPEZ 12/26/17 Unknown History mcg (50,000 unit) capsule denosumab 60 mg/mL subcutaneous 60 mg SQ QMONTH 11/02/19 10/01/19 History syringe mirtazapine 15 mg tablet 15 mg PO QHS #30 tabs 11/02/19 Unknown Rx triamcinolone acetonide 0.1 % 1 applic topical BID 01/05/20 Unknown History topical ointment donepezil 5 mg tablet 5 mg PO DAILY 09/21/23 Unknown History levetiracetam 750 mg tablet 750 mg PO BID 09/21/23 Unknown History lisinopril 2.5 mg tablet 2.5 mg PO DAILY 09/21/23 Unknown History memantine 28 mg capsule 28 mg PO DAILY 09/21/23 Unknown History sprinkle,extended release 24hr paroxetine HCl 40 mg tablet 20 mg PO DAILY 09/21/23 Unknown History abaloparatide (Tymlos) 80 mcg subcut DAILY 03/20/24 Unknown History fluticasone fur. 200 mcg-umeclid 1 inh inhalation DAILY 03/20/24 Unknown History 62.5 mcg-vilant 25 mcg inhalat.powder (Trelegy Ellipta) mirabegron 50 mg tablet,extended 50 mg PO DAILY 03/20/24 Unknown History release 24 hr (Myrbetriq) ondansetron 4 mg disintegrating 4 mg PO Q6H PRN nausea and 03/21/24 Unknown Rx tablet vomiting #14 tabs prednisone 50 mg tablet 50 mg PO DAILY 5 days #5 tabs 03/21/24 Unknown Rx Allergy/AdvReac Type Severity Reaction Status Date / Time bee venom protein (honey bee) Allergy Severe Other Verified 03/20/24 20:31 celecoxib (From Celebrex) Allergy Swelling Verified 03/20/24 20:31 fluoxetine Allergy PT UNSURE Verified 03/20/24 20:31 OF REACTION hydrocodone Allergy PT UNSURE Verified 03/20/24 20:31 OF REACTION pneumococcal 23-valent Allergy PT UNSURE Verified 03/20/24 20:31 polysacchari (From Pneumovax OF REACTION 23) pneumococcal vaccine Allergy Rash Verified 03/20/24 20:31 (Pneumococcal Vaccine) ranitidine Allergy PT UNSURE Verified 03/20/24 20:31 OF REACTION rofecoxib Allergy PT UNSURE Verified 03/20/24 20:31 OF REACTION valdecoxib Allergy PT UNSURE Verified 03/20/24 20:31 OF REACTION Family History Aunt Asthma Father Heart disease Hypertension CVA (cerebral vascular accident) Uncle Diabetes Grandmother CVA (cerebral vascular accident) Surgical History History of squamous cell carcinoma excision History of carpal tunnel release History of tubal ligation History of cerebral aneurysm repair Social History Smoking Status: Current every day smoker tobacco type: e-cigarettes alcohol intake: never substance use type: does not use ROS ROS ED ROS Narrative Constitutional: Complains of fever and chills as noted above denies any lightheadedness or dizziness Eyes: Denies any double vision blurry vision change in vision Cardiovascular: Denies any chest pain or palpitations Respiratory: Complains of cough with increased sputum production Abdomen: Denies abdominal pain nausea vomiting diarrhea : Denies any urinary symptoms Neurological: Denies any numbness, weakness, tingling Musculoskeletal: Denies back pain Skin: Denies any rashes or lesions EXAM Physical Exam Narrative Exam Narrative: General: Patient lying in bed rest comfortably did not appear to be in acute distress Head: Atraumatic, normocephalic Eyes: PERRL bilaterally, EOMI bilateral, no conjunctival injection noted Neck: Soft, supple, trachea midline Cardiovascular: Regular in rhythm no murmurs gallops rubs noted Respiratory: Clear to auscultation bilaterally no rales rhonchi or wheezes noted Abdomen: Soft, nondistended, no tenderness palpation, bowel sounds present all 4 Extremities: +4/5 strength noted in the bilateral upper and lower extremities, no pedal edema on exam, radial pulses +2/4 in the bilateral upper extremities Neurological: Patient following commands knew that she is at [facility] there is 2023 Skin: Warm, dry, intact Const Vital Signs: 03/20/24 20:31 03/20/24 20:31 03/20/24 20:34 Temperature 100.5 F H 100.5 F H Temperature Source Oral Oral Pulse Rate 106 H 99 Respiratory Rate 17 25 H Respiratory Pattern Blood Pressure 87/53 L 94/60 106/65 Blood Pressure Mean 64 71 78 Pulse Ox 94 94 Oxygen Delivery Method Room Air Room Air 03/20/24 21:02 03/20/24 21:31 03/20/24 21:34 Temperature Temperature Source Pulse Rate 98 Respiratory Rate 18 Respiratory Pattern Tachypnea Blood Pressure 111/63 Blood Pressure Mean 79 Pulse Ox 90 90 Oxygen Delivery Method Room Air Room Air 03/20/24 21:34 03/20/24 23:20 Temperature 100.5 F H Temperature Source Oral Pulse Rate 89 92 Respiratory Rate 20 H 22 H Respiratory Pattern Blood Pressure 111/64 111/64 Blood Pressure Mean 79 79 Pulse Ox 94 96 Oxygen Delivery Method Room Air MDM MDM MDM Narrative Medical decision making narrative: Patient is a 68-year-old female who presents to the emergency department with a chief complaint of fever, low blood pressure and increased fatigue as well as generalized weakness. On the differential diagnose includes Melamin to upper respiratory infection secondary to viral etiology, pneumonia, ACS, UTI. Once workup is obtained reviewed she will be reevaluated. Patient's CBC reviewed and was largely unremarkable no evidence leukocytosis white blood count normal at 7, hemoglobin is 11.1, platelet count normal at 176. Patient's INR normal at 1, PT normal at 13.2. Patient sodium normal at 142, potassium was 3.4, creatinine was 1.06 which appears to be around her baseline. Patient's AST and ALT were 24 and 26 respectively. Patient's troponin was noted to be normal at 5. Patient's EKG reviewed and independently interpreted by myself which showed sinus rhythm with a rate of [address] changes noted. Patient's urinalysis reviewed and showed no evidence of infection. Patient's CT head and brain without contrast showed status post right sided aneurysm clipping with probable postsurgical encephalomalacia in the right frontal lobe. Old left cerebellar infarct. Mild periventricular white matter ischemic changes. No evidence for acute bleed. If concern for acute infarct recommend follow-up studies no concern for acute infarct. Today in the emergency department. Patient chest x-ray reviewed by myself and by radiology which showed multiple compression fractures age-indeterminate otherwise no acute disease she is not complaining of any pain in this region. Patient did test positive for COVID-19 here in the emergency department. Patient was ambulated to the bathroom and back without any difficulty is walking at her normal baseline. Patient does have a history of COPD so she will be given her first dose of prednisone here and then will be placed on a subsequent 5-day course of steroids. They are encouraged to continue supportive care with rotating Tylenol and ibuprofen [id number] for fever control. They are encouraged to ensure adequate hydration. They are encouraged to continue the antibiotics as prescribed. Significant other at bedside states that she has a doctors appointment coming up on Friday which she was advised to follow-up with them in the outpatient setting. Encouraged return with any other concerns. All question concerns answered she is discharged home in stable condition. Lab Data Labs: Laboratory Results - last 24 hr 03/20/24 03/20/24 03/20/24 21:30 23:00 23:18 WBC 7.0 RBC 3.63 L Hgb 11.1 L Hct 34.3 L MCV 94.5 MCH 30.6 MCHC 32.4 RDW Std Deviation 43.1 RDW Coeff of Leisa 12.4 Plt Count 176 MPV 9.6 Immature Gran % (Auto) 0.300 Neut % (Auto) 81.7 H Lymph % (Auto) 6.3 L [place] % (Auto) 10.5 H Eos % (Auto) 0.9 Baso % (Auto) 0.3 Absolute Neuts (auto) 5.7 Absolute Lymphs (auto) 0.44 L Nucleated RBC % 0 Differential Comment SEE COMMENT Platelet Estimate ADEQUATE RBC Morphology N CHROM Anisocytosis RARE Macrocytosis RARE PT 13.2 INR 1.0 APTT 29.6 Sodium Cancelled 142 Potassium Cancelled 3.4 L Chloride Cancelled 114 H Carbon Dioxide Cancelled 23.0 Anion Gap Cancelled 6 BUN Cancelled 31 H Creatinine Cancelled 1.06 H Estim Creat Clear Calc Cancelled 43.24 Est GFR (MDRD) Af Amer Cancelled 66 Est GFR (MDRD) Non-Af Cancelled 55 L BUN/Creatinine Ratio Cancelled 29.2 H Glucose Cancelled 101 Lactic Acid 1.0 Calcium Cancelled 8.3 L Total Bilirubin Cancelled 0.30 AST Cancelled 24 ALT Cancelled 26 Alkaline Phosphatase Cancelled 82 Troponin I High Sens Cancelled 5 Total Protein Cancelled 5.8 L Albumin Cancelled 2.8 L Globulin Cancelled 3.0 Albumin/Globulin Ratio Cancelled 0.9 Urine Color Yellow Urine Clarity Clear Urine pH 6.0 Ur Specific Somis 1.020 Urine Protein 15 H Urine Glucose (UA) Normal Urine Ketones Negative Urine Occult Blood Negative Urine Nitrite Negative Urine Bilirubin Negative Urine Urobilinogen 1 H Ur Leukocyte Esterase 25 H Urine RBC 0 SEEN Urine WBC 0-5 SEEN Ur Squamous Epith Cells 0-5 SEEN Urine Bacteria 0 SEEN Urine Mucus 0 SEEN Radiography Diagnostic Testing: Clinical Impression(s) from Imaging Studies Brain CT 03/20/24 21:16 IMPRESSION: Status post right sided aneurysm clipping with probable postsurgical encephalomalacia in the right frontal lobe. Old left cerebellar infarct. Mild periventricular white matter ischemic changes. No evidence for acute bleed. If concern for acute infarct recommend follow-up studies Electronically Signed: Gama Dolan MD at 22:53 EST Reading Location ID and State: [facility] / [place] Tel , Service support , Chest X-Ray 03/20/24 22:40 IMPRESSION: Multiple compression fractures, age indeterminate otherwise no acute disease. Electronically Signed: Cuong Boss MD at 23:18 EST Reading Location ID and State: [facility] / [place] Tel , Service support , Discharge Plan Triage Chief Complaint: General Illness ED Provider: Ross Rhoades Dx/Rx/DC Orders Clinical Impression: COVID-19 Prescriptions: New prednisone 50 mg tablet 50 mg PO DAILY 5 Days Qty: 5 0RF ondansetron 4 mg tablet,disintegrating 4 mg PO Q6H PRN (Reason: nausea and vomiting) Qty: 14 0RF No Action budesonide-formoterol [Symbicort] 160-4.5 mcg/actuation HFA aerosol inhaler 1 puff INHALATION DAILY triamcinolone acetonide 0.1 % ointment 1 applic TOPICAL BID baclofen 10 MG tablet 10 mg PO DAILY Patient Comments: spasms diazepam 10 MG tablet 10 mg PO QHS Patient Comments: sleep albuterol sulfate 1 INHALER inhaler 1 - 2 puff INHALATION Q6H PRN PRN (Reason: Sob &/Or Wheezing) Patient Comments: copd atorvastatin 40 MG tablet 40 mg PO QHS Qty: 90 0RF Patient Comments: lowers cholesterol aspirin 81 MG tablet,chewable 81 mg PO DAILY@0800 Qty: 90 0RF Patient Comments: preventative for heart/stroke ergocalciferol (vitamin D2) 50,000 unit capsule 50,000 unit PO LOPEZ Patient Comments: supplement denosumab 60 MG/ML syringe 60 mg SQ QMONTH Rx Instructions: every 6 months. mirtazapine 15 MG tablet 15 mg PO QHS Qty: 30 0RF donepezil 5 mg tablet 5 mg PO DAILY levetiracetam 750 mg tablet 750 mg PO BID paroxetine HCl 40 mg tablet 20 mg PO DAILY lisinopril 2.5 mg tablet 2.5 mg PO DAILY memantine 28 mg capsule,sprinkle,ER 24hr 28 mg PO DAILY mirabegron [Myrbetriq] 50 mg tablet extended release 24 hr 50 mg PO DAILY Trelegy Ellipta 200-62.5-25 mcg blister with device 1 inh inhalation DAILY Tymlos 80 mcg (3,120 mcg/1.56 mL) pen injector 80 mcg subcut DAILY Rx Instructions: inject into abdomen; do not inject within 2 inches of belly button/navel; rotate sites Primary Care Provider: Kellen Jean Referrals: Kellen Jean DO [Primary Care Provider] - Activity Restrictions/Additional Instructions: Follow-up with your primary care physician outpatient setting. Return with worsening symptoms or any other concerns. Encourage adequate hydration with fluids. Use prescriptions as prescribed. Print Language: [place] Disposition Disposition: Home, Self Care
[2024-03-20 22:08] LABS: Prothrombin Time (Protime)PT. 13.2 SECONDS (11.7-14.9)
[2024-03-20] MEDS: 0.9% Normal Saline (1000mL) 1,000 ML 999 ML IV (22:08)
[2024-03-20 22:09] LABS: Partial Thromboplast Time 29.6 Seconds (24.1-36.2)
[2024-03-20 22:12] LABS: Differential Indicated SCAN CRITERIA MET
[2024-03-20 22:26] LABS: Anisocytosis RARE; Macrocytosis RARE; Platelet Estimate ADEQUATE (ADEQ); Red Cell Morphology N CHROM NORMAL (NORM C&C)
--- NOTE | 2024-03-20 22:40 | RAD_ITS ---
STUDY: X-RAY CHEST REASON FOR EXAM: Female, 68 years old. cough TECHNIQUE: Single frontal view of the chest. COMPARISON: CT chest September 05, 2023 FINDINGS: The lungs are clear and expanded. There is no demonstrated pleural abnormality. Normal size heart. Normal mediastinum and cary. Normal visualized pulmonary arteries. Normal visualized aortic arch and descending thoracic aorta. Multiple mild compression fractures, age indeterminate. Severe DJD right glenohumeral joint. Normal visualized ribs, clavicles, and shoulders. There is no demonstrated abnormality of the visualized soft tissue structures of the upper abdomen. RAD/Chest PA and Lateral IMPRESSION: Multiple compression fractures, age indeterminate otherwise no acute disease. Electronically Signed: Cuong Boss MD at 23:18 EST ,
[2024-03-20 23:20] VITALS: BP 111/64; PULSE 92; RESP 22; O2SAT 96
[2024-03-20 23:24] LABS: Bacteria 0 SEEN /hpf (None Seen); Mucous, Urine 0 SEEN /hpf (<or=2+); Red Blood Cells-Urine 0 SEEN /hpf (0-5)
[2024-03-20 23:26] LABS: Color, Urine Yellow (Yellow); Glucose, Dipstick Normal (Normal); Ketone-Dipstick Negative (Negative); Leukocyte Esterase-Dipstick 25 /ul (Negative); Nitrite-Dipstick Negative (Negative); Occult Blood-Urine Negative /ul (Negative); Protein-Dipstick 15 mg/dl (Negative); Urine Bilirubin Dipstick Negative (Negative); Urine Clarity Clear (Clear); Urine Urobilinogen 1 mg/dl (Normal)
[2024-03-20 23:54] LABS: Squamous Epithelial Cells - UA 0-5 SEEN /hpf (5-10); White Blood Cells 0-5 SEEN /hpf (0-5)
[2024-03-21] VITALS: BP 125/81; PULSE 89; RESP 16; TEMP 37.4; O2SAT 92
[2024-03-21 00:10] LABS: ALB/GLOB Ratio 0.9 RATIO (0.9-2.4); AST(SGOT) 24 U/L (15-37); Alanine Aminotransfer ALT/SGPT 26 U/L (13-56); Albumin, Serum 2.8 g/dL (3.2-5.0); Alkaline Phosphatase 82 U/L (45-117); Anion Gap 6 (5-15); BUN 31 mg/dL (7-18); BUN/Creat Ratio 29.2 RATIO (10-20); Calcium,Total 8.3 mg/dL (8.5-10.1); Chloride 114 mmol/L (98-107); Creatinine, Serum 1.06 mg/dL (0.55-1.02); EST Glomerular Filtration Rate 55 mL/min (>60); Est Glom Filt Rate - Afr Amer 66 mL/min (>60); Estimated Creatinine Clearance 43.24 ml/min; Glucose 101 mg/dL (74-106); Potassium 3.4 mmol/L (3.5-5.1); Protein, Total 5.8 g/dL (6.4-8.2); Sodium Level 142 mmol/L (136-145); Troponin-I HS (w/2H Reflex) 5 pg/mL (3.0-54.0)
[2024-03-21] MEDS: predniSONE 20 MG Tablet 60 MG PO (00:33)
[2024-03-21 01:04] LABS: Reflex Troponin-HS? (from REC) Y
== END 2024-03-21 00:43 | disposition home or self-care (01) ==
PROVIDERS: Emergency Provider Emergency Medicine; PCP Internal Medicine; Visit Provider Emergency Medicine
DX: U07.1 COVID-19 (principal); G30.9 Alzheimer's disease, unspecified; J44.9 Chronic obstructive pulmonary disease, unspecified; E11.9 Type 2 diabetes mellitus without complications; F17.290 Nicotine dependence, other tobacco product, uncomplicated; Z79.51 Long term (current) use of inhaled steroids; Z79.82 Long term (current) use of aspirin; Z79.899 Other long term (current) drug therapy; Z86.73 Personal history of transient ischemic attack (TIA), and cerebral infarction without residual deficits
CPT/HCPCS: 70450; 71046; 80053; 81001; 83605; 84484; 85025; 85610; 85730; 87040; 87086; 87631; 93005; 96360; 96361; 99284; J7030; A4216

== ENCOUNTER → 2024-09-07 | Outpatient (CLI) | payer MEDICARE, SELFPAY ==
--- NOTE | 2024-09-07 16:20 | BI_ITS ---
EXAM: SCRN MAMM (CAD)W/JOIE BILAT DATE: 09/07/2024 CLINICAL HISTORY: F, Age 69 y/o , SCRN MAMM (CAD)W/JOIE BILAT BREAST CANCER RISK ASSESSMENT: Not reported TECHNIQUE: Bilateral screening digital breast tomosynthesis with 2D and 3D images. Computer aided detection. COMPARISON: Prior exam(s) were compared FINDINGS: TISSUE DENSITY: The breast tissue is heterogenously dense, which may obscure small masses. Bilateral Breast Mammographic Findings: No suspicious masses, calcifications or other abnormalities are identified. BI/SCRN MAMM (CAD)W/JOIE BILAT IMPRESSION: OVERALL FINAL ASSESSMENT: BIRADS 1 NEGATIVE RECOMMENDATION: Routine annual follow-up in 1 Year A letter with findings and recommendations will be mailed to the patient. Reading Location: [id number]
--- NOTE | 2024-09-07 16:23 | BD_ITS ---
PROCEDURE: DEXA BONE DENSITY STUDY 09/07/2024 REASON FOR EXAM: F, age 69 y/o . Postmenopausal. TECHNIQUE: DEXA scan of sites with data reported below. Scanner utilized: [employer] REFERENCE LINKS[facility] COMPARISON: DEXA examination dated 03/26/2022 FINDINGS: BMD and T-SCORES Lumbar spine: 0.808 g/cm2, T-score -2.5 Levels: L2 through L4 Left femoral neck: 0.471 g/cm2, T-score -3.4 Left total hip: 0.563 g/cm2, T-score -3.1 Change from prior: 2.7%. The World Health Organization has defined the following categories based on bone density: Normal bone density: T-score equal to or greater than -1.0 Osteopenia: T-score between -1.0 and -2.5 Osteoporosis: T-score equal to or less than -2.5 FRAX (or Comparable) Fracture Risk Assessment: 10 Year Probability of Fracture: Major Osteoporotic Fracture: 55% Hip Fracture: 27% (Note: FRAX is not to be reported in setting of normal range bone density, osteoporosis on DEXA, known history of osteoporosis, prior osteoporotic hip or vertebral fracture, or for any patient undergoing pharmacological treatment for bone loss.) The National Osteoporosis Foundation (NOF) recommends pharmacological treatment for patients with a FRAX 10-year risk of 3% or higher for a hip fracture, or 20% or higher for a major osteoporotic fracture, to prevent osteoporosis and reduce fracture risk. The patient does meet the pharmacological treatment recommendations for prevention of osteoporosis. BD/Dexa Bone Density Study IMPRESSION: OSTEOPOROSIS. Recommend follow-up as clinically warranted. Reading Location: [id number]
== END | disposition home or self-care (01) ==
PROVIDERS: PCP Internal Medicine; Referring Provider Internal Medicine; Visit Provider Internal Medicine
DX: Z12.31 Encounter for screening mammogram for malignant neoplasm of breast (principal); Z78.0 Asymptomatic menopausal state
CPT/HCPCS: 77063; 77067; 77080

== ENCOUNTER → 2024-10-14 | Outpatient (CLI) | payer MEDICARE, SELFPAY ==
--- NOTE | 2024-10-14 15:46 | CT_ITS ---
EXAM: CT Chest, Lung Cancer Screening Without Intravenous Contrast CLINICAL INDICATION: COPD TECHNIQUE: Axial computed tomography images of the chest without intravenous contrast using low dose (LDCT) lung cancer screening protocol. This CT exam was performed using one or more of the following dose reduction techniques: automated exposure control, adjustment of the mA and/or kV according to patient size, and/or use of iterative reconstruction technique. COMPARISON: CT Lung Cancer Screening dated 09/05/2023 FINDINGS: LUNGS AND PLEURAL SPACES: Lung emphysema/COPD. Stable 7 mm ground-glass nodule in the left upper lobe. Stable 5 mm ground-glass nodule in the medial left upper lobe. Stable 2 mm nodule in the lateral right upper lobe. No consolidation. No significant effusion. No pneumothorax. No new suspicious pulmonary nodules. HEART: Unremarkable. No cardiomegaly. No significant pericardial effusion. No significant coronary artery calcifications. BONES/JOINTS: Unremarkable. No acute fracture. SOFT TISSUES: Unremarkable. VASCULATURE: Unremarkable. No thoracic aortic aneurysm. LYMPH NODES: Unremarkable. No enlarged lymph nodes. CT/Low Dose CT Lung Screening IMPRESSION: 1. No new suspicious pulmonary nodules. 2. LUNG-RADS 2: Benign. Continue low-dose CT screening of the chest in 12 mon ths is recommended. Reading Location: [facility]
== END | disposition home or self-care (01) ==
LOC: CT 15:44
PROVIDERS: PCP Internal Medicine; Referring Provider Internal Medicine; Visit Provider Internal Medicine
DX: Z12.2 Encounter for screening for malignant neoplasm of respiratory organs (principal); J44.9 Chronic obstructive pulmonary disease, unspecified; F17.210 Nicotine dependence, cigarettes, uncomplicated
CPT/HCPCS: 71271